=== PATIENT | male | born 1965 | race Caucasian/White ===

== ENCOUNTER → 2020-06-27 | Outpatient (CLI) | payer BC ==
--- NOTE | 2020-07-02 09:47 | P.ARTDOP ---
Arterial Doppler LOWER EXTREMITY ARTERIAL DOPPLER: DATE OF SERVICE: 06/27/2020 Reason for study: Left foot ulcer. Doppler waveforms: Multiphasic throughout on the right except flat line at the digits. Multiphasic at the left femoral, atypical at the popliteal and posterior tibial and monophasic at the dorsalis pedis with flat line digital. Pulse volume recording: []. Pressure gradients: Above the low thigh on the left and across the knee on the left. None noted on the right.. Ankle-brachial indices: Greater than 1 on the right and 0.53 on the left. Toe brachial indices: [] on the right, [] on the left Impression: Suggests normal on the right side and at least moderate left femoral popliteal disease. Doubtful of the flat line waveforms at the toe level. Would recommend vascular specialty consultation.
== END | disposition home or self-care (01) ==
LOC: RADUSWWP 09:37
PROVIDERS: ATTEND Family Medicine
DX: I73.9 Peripheral vascular disease, unspecified (principal)
CPT/HCPCS: 93923

== ENCOUNTER → 2020-07-30 | Day surgery (SDC) | payer BC ==
[2020-07-25 11:03] VITALS: BMI 25.0
[~2020-07-30] MED LIST: ALPRAZolam 0.25 MG TAB PO ONE; ALPRAZolam 0.25 MG TAB PO PRN; ASPIRIN 325 MG TAB PO PRN; IOPAMIDOL-250 100ML BTL INTRAARTER ONE; LIDOCAINE 1% INJ 10MG/ML (20 ML MDV) ONE; LIDOCAINE 1% INJ 10MG/ML (20 ML MDV) SQ ONE; MIDAZOLAM 2 MG/2 ML VIAL IV ONE; SODIUM CHLORIDE 0.9% 1,000 ML IV ONE; SODIUM CHLORIDE 0.9% 1,000 ML IV SCH; SODIUM CHLORIDE 0.9% 1,000 ML in EMPTY BAG 1 BAG IV ONE
[2020-07-30 07:24] VITALS: TEMP 97.6
[2020-07-30 09:07] VITALS: RESP 18
--- NOTE | 2020-07-30 09:12 | IR ---
Fluoroscopy HISTORY: Pain in left foot 1.3 minutes fluoroscopy time supplied to the referring clinician. 93 intraoperative C-arm images doc ument the procedure. See dictated report from cardiology.
--- NOTE | 2020-07-30 09:14 | LTR ---
July 30, 2020 Re: Jose Martin Ch Dear Dr. Bhardwaj: Mr. Jose Martin Ch underwent today an abdominal aortogram and bilateral lower extremities runoff and that revealed occluded left popliteal. He will be scheduled to undergo a ORGANIC PREPARATION ANALYST of the left popliteal. I want to thank you for allowing me to participate in his care and please do not hesitate to call if you have any question or concern. Sincerely, MD BLANCA Modi / LIV: [id number] /
--- NOTE | 2020-07-30 09:59 | AN ---
ANGIOGRAPHY REPORT DATE OF SERVICE: July 30, 2020 PERFORMING PHYSICIAN: Ephraim Peter MD PROCEDURE PERFORMED: 1. An abdominal aortogram. 2. Bilateral lower extremities runoff. INDICATION: This is a 55-year-old gentleman with history of smoking who was struggling with resting pain involving the left foot and also nonhealing ulcer as well. He was diagnosed with critical limb ischemia. An JOÃO was performed and that came into be abnormal. Because of that, an aortogram was advised. APPROACH: Right common femoral artery. COMPLICATION: None. LEVEL OF SEDATION: Moderate with a sedation length of 20 minutes. PROCEDURE DESCRIPTION: After obtaining an informed consent, the patient was brought to the cardiac public works laborer. The right common femoral artery was cannulated using micropuncture technique, the micropuncture wire passed easily then I placed a 5-Uruguayan sheath at the right common femoral artery. After that I did an abdominal aortogram and bilateral lower extremities runoff using 5- Uruguayan pigtail catheter which was initially placed at the level of the renal arteries then it was pulled into above the bifurcation of the aorta to right and left common iliac arteries. The procedure was completed without any complication. SELECTIVE PERIPHERAL ANGIOGRAM: 1. The aorta appeared to be angiographically normal. 2. Common Iliac Arteries: Both are angiographically normal. 3. Internal Iliac Arteries: Both are patent. 4. External Iliac Arteries: Both are angiographically normal. 5. Common Femoral Arteries: The right common femoral artery is angiographically normal and the left common femoral artery appeared to be hazy. 6. Profunda: Both are patent. 7. SFA: The right SFA appeared to be angiographically normal. The distal left SFA appeared to be occluded. 8. Popliteal: The right popliteal is normal and the left popliteal is occluded. 9. Below the knee: There are 3-vessels runoff below the knee bilaterally. CONCLUSION: Occluded left popliteal. POSTPROCEDURE MANAGEMENT: CRYPTOLOGIC LINGUIST of the left popliteal to be performed in antegrade or retrograde technique. MMODL / IJN: [id number] /
[2020-07-30 13:20] VITALS: BP 116/66; PULSE 80
== END ==
LOC: CATHCVL 06:29
PROVIDERS: ATTEND Internal Medicine Interventional Cardiology
DX: I70.245 Atherosclerosis of native arteries of left leg with ulceration of other part of foot (principal); L97.529 Non-pressure chronic ulcer of other part of left foot with unspecified severity; E78.5 Hyperlipidemia, unspecified; I10 Essential (primary) hypertension; F17.210 Nicotine dependence, cigarettes, uncomplicated; Z82.49 Family history of ischemic heart disease and other diseases of the circulatory system; Z79.82 Long term (current) use of aspirin; Z79.899 Other long term (current) drug therapy
CPT/HCPCS: 36200; 75625; 75716; C1769 ×4; C1894; J2250; J2001; Q9966

== ENCOUNTER 2020-08-13 07:58 | Day surgery (SDC) | payer BC ==
[2020-08-11 13:42] VITALS: BMI 25.0
[~2020-08-13 07:58] MED LIST changes: -ALPRAZolam 0.25 MG TAB PO ONE; -IOPAMIDOL-250 100ML BTL INTRAARTER ONE; -LIDOCAINE 1% INJ 10MG/ML (20 ML MDV) ONE; -LIDOCAINE 1% INJ 10MG/ML (20 ML MDV) SQ ONE; -MIDAZOLAM 2 MG/2 ML VIAL IV ONE; -SODIUM CHLORIDE 0.9% 1,000 ML IV ONE; -SODIUM CHLORIDE 0.9% 1,000 ML IV SCH
[2020-08-13] MEDS ORDERED: SODIUM CHLORIDE 0.9% 1,000 ML IV ONE (08:19)
[2020-08-13] MEDS ORDERED: SODIUM CHLORIDE 0.9% 500 ML 500 ML with niCARdipine 6.25 MG, NITROGLYCERIN-D5W PMX 0.05... IV ONE ×4 (10:56)
[2020-08-13] MEDS ORDERED: LIDOCAINE 1% INJ 10MG/ML (20 ML MDV) SQ ONE (11:34)
[2020-08-13] MEDS ORDERED: MIDAZOLAM 2 MG/2 ML VIAL IV ONE ×2 (11:34→12:21)
[2020-08-13] MEDS: fentaNYL (PF) 50 MCG/ML 2 ML AMP IV ONE ×2 (11:34→11:51)
[2020-08-13] MEDS: MIDAZOLAM 2 MG/2 ML VIAL IV ONE ×2 (11:49→11:51)
[2020-08-13] MEDS ORDERED: HYDROmorphone 0.5 MG/0.5 ML SYRINGE IVP ONE (12:05)
[2020-08-13] MEDS ORDERED: CLOPIDOGREL 75 MG TAB PO ONE (12:50)
[2020-08-13] MEDS ORDERED: IOPAMIDOL-250 100ML BTL INTRAARTER ONE (12:50)
[2020-08-13] MEDS ORDERED: SODIUM CHLORIDE 0.9% 1,000 ML in EMPTY BAG 1 BAG IV SCH (13:00)
--- NOTE | 2020-08-13 13:54 | IR ---
EXAMINATION TYPE: IR stent intravas non coronary DATE OF EXAM: 08/13/2020 COMPARISON: NONE HISTORY: Fluoroscopy time. Fluoroscopy was provided to the referring clinician.
--- NOTE | 2020-08-13 14:19 | LTR ---
August 13, 2020 Re: JoseM artin Ch Dear Dr. Bhardwaj: Mr. Jose Martin Ch underwent today successful crossing chronic total occlusion of the left popliteal and left femoral artery along with successful atherectomy and stenting with excellent angiographic results and without any complication. He is going to stay overnight to be discharged tomorrow morning. I want to thank you for allowing me to participate in his care and please do not hesitate to call if you have any question or concerns. Sincerely, Ephraim Peter MD MMTAJ / ELIASN: [id number] /
[2020-08-13] MEDS ORDERED: ACETAMINOPHEN TAB 325 MG TAB ONE (14:24)
[2020-08-13] MEDS ORDERED: ACETAMINOPHEN TAB 325 MG TAB PO PRN (14:26)
[2020-08-13] MEDS ORDERED: HYDROmorphone 0.5 MG/0.5 ML SYRINGE IVP PRN (14:27)
--- NOTE | 2020-08-13 14:38 | AN ---
ANGIOGRAPHY REPORT PERCUTANEOUS PERIPHERAL INTERVENTION: DATE OF SERVICE: August 13, 2020 PERFORMING PHYSICIAN: Ephraim Peter MD. PROCEDURE PERFORMED: 1. Atherectomy of the left popliteal and left SFA using the HawkOne device with extraction of significant amount of plaque. 2. Successful stenting of the left popliteal and left SFA using 6.0 x 100 and 7.0 x 100 Zilver PTX drug-coated stent with excellent angiographic results. 3. Intravascular ultrasound (IVUS) of the left popliteal and left SFA. 4. Balloon angioplasty of the left popliteal and left SFA. 5. Selective left posterior tibial angiogram. INDICATION: Left lower extremities intermittent claudication in this 55-year-old gentleman with history of smoking who underwent an angiogram and that revealed occluded left SFA and left popliteal. APPROACH: Left posterior tibial artery. COMPLICATION: None. LEVEL OF SEDATION: Moderate with sedation length of 75 minutes. PROCEDURE DESCRIPTION: After obtaining an informed consent, the patient was brought to the cardiac picket labor union. The left posterior tibial artery was cannulated using micropuncture technique under ultrasound guidance, the micropuncture wire passed easily then I placed a slender 5/6 sheath at the left posterior tibial artery. Cocktail infusion using heparin and verapamil and nitroglycerin was initiated subsequently. Then, the patient was given a total of 6000 units of heparin IV. After that I did selective left posterior tibial artery angiogram. After that I crossed the chronic total occlusion of the left popliteal and left SFA using 0.018 gold tip glidewire with the backup support of 0.018 CXI catheter. I did inject contrast through the catheter to prove that I was in the true lumen. After that I did atherectomy of the left popliteal and left SFA using the HawkOne device with extraction of significant amount of plaque. After that balloon angioplasty initially done using 5 mm Chocolate balloon and then 6 mm regular balloon. The following angiogram showed inadequate angiographic results mainly in the proximal and distal gap, that was confirmed by intravascular ultrasound, IVUS. I decided to place 2 stents. In the left popliteal, I placed a 6 x 100 and in the left SFA I placed 7 x 100. Both stents were post-dilated using 6 mm balloon with the following angiogram showing excellent angiographic results and the procedure was completed without any complication. After that, the sheath from the left posterior tibial artery was pulled out and manual pressure was held for 10 minutes before we placed TR band. The procedure was completed without any complication. POSTPROCEDURE MANAGEMENT: 1. Dual anti-platelet therapy. 2. Risk factor modifications. 3. Follow up with the patient. BLANCA / LIV: [id number] /
[2020-08-14 07:03] LABS: Basophils # (A) 0.1 k/uL (0-0.2); Basophils % (A) 1 %; Eosinophils # (A) 0.4 k/uL (0-0.7); Eosinophils % (A) 4 %; HCT 45.1 % (39.0-53.0); HGB 15.5 gm/dL (13.0-17.5); Lymphocytes # (A) 1.5 k/uL (1.0-4.8); Lymphocytes % (A) 15 %; MCH 33.4 pg (25.0-35.0); MCHC 34.4 g/dL (31.0-37.0); MCV 97.3 fL (80.0-100.0); Mean Platelet Volume 7.4; Monocytes # (A) 0.7 k/uL (0-1.0); Monocytes % (A) 7 %; Neutrophils # (A) 7.2 k/uL (1.3-7.7); Neutrophils % (A) 72 %; Platelet Count 270 k/uL (150-450); RBC 4.64 m/uL (4.30-5.90); RDW 12.9 % (11.5-15.5); WBC 9.9 k/uL (3.8-10.6)
[2020-08-14 07:16] LABS: African American GFR (CKD) >90 (>60 ml/min/1.73 sqM); Anion Gap 4 mmol/L; Blood Urea Nitrogen 12 mg/dL (9-20); Calcium 9.6 mg/dL (8.4-10.2); Carbon Dioxide 28 mmol/L (22-30); Chloride 106 mmol/L (98-107); Glucose 93 mg/dL (74-99); Non-African American GFR(CKD) >90 (>60 ml/min/1.73 sqM); Potassium 4.5 mmol/L (3.5-5.1); Sodium 138 mmol/L (137-145)
[2020-08-14 08:23] VITALS: BP 120/73; PULSE 18; RESP 18; TEMP 97.9
[2020-08-14] MEDS ORDERED: ASPIRIN 81 MG PO SCH (09:00)
[2020-08-14] MEDS ORDERED: MULTIVITAMINS, THERA 1 EACH TAB PO SCH (09:00)
[2020-08-14] MEDS ORDERED: ATORVASTATIN 80 MG TAB PO SCH (09:00)
[2020-08-14] MEDS ORDERED: CLOPIDOGREL 75 MG TAB PO SCH (09:00)
[2020-08-14] MEDS ORDERED: lisinopriL 5 MG TAB PO SCH (09:00)
--- NOTE | 2020-08-14 10:36 | DS ---
DISCHARGE SUMMARY ADMISSION DATE: August 13, 2020. DISCHARGE DATE: August 14, 2020. BRIEF HISTORY: This is a 55-year-old gentleman who was experiencing recently symptoms of left leg discomfort concerning for intermittent claudication. He underwent an angiogram and that revealed occluded left popliteal. He underwent yesterday successful recanalizing, chronically occluded left popliteal with good angiographic results. He is going to be discharged home on dual anti-platelet therapy as well as statin and I will follow up with the patient next week in the office. MMMATTHIASL / IJN: [id number] /
== END 2020-08-14 11:07 | disposition home or self-care (01) ==
LOC: CATHCVL 07:58 → 6NMEDSUR 12:48 → CATHCVL 08-14 11:07
PROVIDERS: ATTEND Internal Medicine Interventional Cardiology
DX: I70.212 Atherosclerosis of native arteries of extremities with intermittent claudication, left leg (principal); I10 Essential (primary) hypertension; E78.5 Hyperlipidemia, unspecified; F17.210 Nicotine dependence, cigarettes, uncomplicated; Z79.899 Other long term (current) drug therapy; Z82.49 Family history of ischemic heart disease and other diseases of the circulatory system
CPT/HCPCS: 37227; 85347; 37252; 80048; 85025; C1894; C1769 ×4; C1725 ×3; C1714; C1753; C1874 ×2; J2250; J1644 ×2; J2001; J3010; J1170; Q9966

== ENCOUNTER 2021-07-31 06:11 | Inpatient (IN) | payer BC ==
[~2021-07-31 06:11] MED LIST changes: -ASPIRIN 325 MG TAB PO PRN
[2021-07-31] MEDS ORDERED: HYDROmorphone 1 MG/ML 1 ML SYRINGE IVP STA ×2 (06:26→06:35)
[2021-07-31 06:58] LABS: African American GFR (CKD) >90 (>60 ml/min/1.73 sqM); Anion Gap 10 mmol/L; Blood Urea Nitrogen 17 mg/dL (9-20); Calcium 9.4 mg/dL (8.4-10.2); Carbon Dioxide 25 mmol/L (22-30); Chloride 102 mmol/L (98-107); Glucose 100 mg/dL (74-99); Non-African American GFR(CKD) >90 (>60 ml/min/1.73 sqM); Potassium 4.8 mmol/L (3.5-5.1); Sodium 137 mmol/L (137-145)
[2021-07-31] MEDS ORDERED: ASPIRIN 325 MG TAB PO PRN (07:00)
[2021-07-31 07:15] LABS: Basophils # (A) 0.1 k/uL (0-0.2); Basophils % (A) 1 %; Eosinophils # (A) 0.2 k/uL (0-0.7); Eosinophils % (A) 2 %; HGB 17.3 gm/dL (13.0-17.5); Lymphocytes # (A) 1.5 k/uL (1.0-4.8); Lymphocytes % (A) 14 %; MCH 33.2 pg (25.0-35.0); MCHC 33.3 g/dL (31.0-37.0); MCV 99.6 fL (80.0-100.0); Mean Platelet Volume 7.5; Monocytes # (A) 0.9 k/uL (0-1.0); Monocytes % (A) 8 %; Neutrophils # (A) 8.1 k/uL (1.3-7.7); Neutrophils % (A) 74 %; Platelet Count 323 k/uL (150-450); RBC 5.22 m/uL (4.30-5.90); RDW 13.5 % (11.5-15.5)
[2021-07-31] MEDS ORDERED: LIDOCAINE 1% INJ 10MG/ML (20 ML MDV) ONE (07:15)
[2021-07-31] MEDS ORDERED: MIDAZOLAM 2 MG/2 ML VIAL IV ONE (07:40)
[2021-07-31] MEDS ORDERED: LIDOCAINE 1% INJ 10MG/ML (20 ML MDV) SQ ONE (07:42)
[2021-07-31] MEDS ORDERED: fentaNYL (PF) 50 MCG/ML 2 ML AMP ONE (07:47)
[2021-07-31] MEDS ORDERED: fentaNYL (PF) 50 MCG/ML 2 ML AMP IV ONE (07:51)
[2021-07-31] MEDS ORDERED: HEPARIN SODIUM 1,000 UN/ML (10ML VL) ONE (07:52)
[2021-07-31] MEDS: HYDROmorphone 2 MG/ML 1 ML SYRINGE IV ONE ×2 (08:04→08:15)
[2021-07-31] MEDS ORDERED: ALTEPLASE 10 MG in SODIUM CHLORIDE 0.9% 90 ML IA ONE (08:15)
[2021-07-31] MEDS: MIDAZOLAM 2 MG/2 ML VIAL IV ONE ×2 (08:16→08:22)
[2021-07-31] MEDS ORDERED: ALTEPLASE 2 MG VIAL (CATHFLO) IA STA (08:19)
[2021-07-31] MEDS ORDERED: IOPAMIDOL-250 100ML BTL INTRAARTER ONE (08:38)
[2021-07-31] MEDS ORDERED: NALOXONE 0.4 MG/ML 1 ML VIAL IVP PRN (08:38)
[2021-07-31] MEDS: HEPARIN SOD,PORK IN 0.45% NACL 25,000 UNIT in 0.45% NACL 1 250ML.BAG IV SCH (08:39)
[2021-07-31] MEDS ORDERED: SODIUM CHLORIDE 0.9% 1,000 ML in EMPTY BAG 1 BAG IV SCH (08:45)
[2021-07-31] MEDS ORDERED: ASPIRIN 81 MG PO PRN (09:43)
--- NOTE | 2021-07-31 09:49 | IR ---
Fluoroscopy HISTORY: Peripheral vascular occlusive disease 11.1 minutes fluoroscopy time supplied to the referring clinician. 310 intraoperative C-arm images d ocument the procedure. See dictated report from cardiology.
[2021-07-31] MEDS: MORPHINE SULFATE 2 MG/ML SYRINGE IVP PRN ×2 (13:41→18:22)
[2021-07-31] MEDS: MULTIVITAMINS, THERA 1 EACH TAB PO SCH (14:22)
[2021-07-31] MEDS: ALTEPLASE 10 MG in SODIUM CHLORIDE 0.9% 90 ML IA SCH (15:54)
[2021-07-31] MEDS ORDERED: ALTEPLASE 10 MG in SODIUM CHLORIDE 0.9% 90 ML IV SCH (16:00)
--- NOTE | 2021-07-31 17:54 | P.PCN ---
Date of Procedure: 07/31/21 Operative Findings: LEFT LOWER EXTREMITY ANGIOGRAM PERFORMING PHYSICIAN: Ephraim Peter MD PROCEDURE PERFORMED: 1. Left lower extremity angiogram 2. Intravascular ultrasound of the left popliteal and left SFA and left common femoral artery 3. Placement of infusion catheter in the left popliteal and left SFA 4. Ultrasound-guided access of the right common femoral artery INDICATION: Acute ischemia in this 56-year-old gentleman who was experiencing resting pain. He underwent in the past successful stenting of the left popliteal and left SFA. COMPLICATION: Mom LEVEL OF SEDATION: Moderate was sedation length of moderate with sedation length of 14 minutes APPROACH: Right common femoral artery PROCEDURE DESCRIPTION: After obtaining informed consent and explaining the procedure benefits, risks, and complications, the patient was brought to the cardiac dentures lab technician. The right groin was prepped and draped in sterile fashion. The right common femoral artery was cannulated using micropuncture technique, under ultrasound guidance. A micropuncture wire was advanced, and the micropuncture sheath was advanced over the wire, then the micropuncture sheath was exchanged over an 0.35 wire into a 5-Wallisian sheath dilator assembly then the wire and dilator were removed and sheath was flushed. Subsequently I did selective left SFA using 035 stiff Glidewire with a backup support of 5-Wallisian rim catheter. After that I did exchange my 11 cm 6-Wallisian sheath into 70 cm 6-Wallisian sheath. After that left lower oximetry angiogram was performed. Subsequently I placed an infusion catheter in the left popliteal and left SFA after intravascular ultrasound was performed. LEFT LOWER EXTREMITY ANGIOGRAM: The left common femoral artery appears to have an eccentric calcified plaque angiographically appeared to be in the range of 50%. By intravascular ultrasound the lesion was hemodynamically significant. The left profunda appears to be patent The left SFA appeared to be patent in the proximal and midportion but distally is a stented and the stent is occluded The left popliteal is occluded and the occlusion extends all the way to below the knee There are 3 vessels run off below the knee on the left side INTRAVASCULAR ULTRASOUND AND PLACEMENT OF INFUSION CATHETER IN THE LEFT LEG: The intravascular ultrasound revealed what it seems to be possible fresh thrombus involving the left popliteal and left SFA. Also that revealed eccentric calcified plaque involving the proximal left common femoral artery right from the left external iliac artery. In the light of that I was able to cross the occlusion using 014 wire and subsequently I did advanced an infusion catheter over the wire to the left popliteal below the knee. Subsequently the catheter was connected into TPA and the patient will be treated with TPA overnight to be coming tomorrow for second look. CONCLUSION: 1. Acute ischemia of the left leg in this 56-year-old gentleman who was experiencing resting pain and he is known to have angioplasty of the left popliteal and left SFA. The pain was started 2-3 weeks ago 2. The angiogram revealed thrombotic occlusion which seems to be in-stent occlusion of the left popliteal and left SFA 3. Eccentric calcified lesion involving the proximal left common femoral artery POSTPROCEDURE MANAGEMENT: 1. The patient will be admitted with TPA overnight 2. Second look angiogram in the next 24 hours
[2021-07-31] MEDS: ATORVASTATIN 80 MG TAB PO SCH (20:48)
[2021-07-31] MEDS: HYDROmorphone 1 MG/ML 1 ML SYRINGE IVP PRN (22:11)
[2021-07-31 22:27] LABS: Basophils % (A) 0 %; Eosinophils # (A) 0.1 k/uL (0-0.7); Eosinophils % (A) 1 %; HCT 47.1 % (39.0-53.0); HGB 15.9 gm/dL (13.0-17.5); Lymphocytes % (A) 7 %; MCH 33.9 pg (25.0-35.0); MCHC 33.7 g/dL (31.0-37.0); MCV 100.4 fL (80.0-100.0); Mean Platelet Volume 7.7; Monocytes # (A) 0.8 k/uL (0-1.0); Monocytes % (A) 6 %; Neutrophils # (A) 12.5 k/uL (1.3-7.7); Neutrophils % (A) 86 %; Platelet Count 240 k/uL (150-450); RBC 4.69 m/uL (4.30-5.90); RDW 13.6 % (11.5-15.5); WBC 14.5 k/uL (3.8-10.6)
[2021-07-31 22:36] LABS: INR 1.1 (<1.2)
[2021-08-01] MEDS: ALTEPLASE 10 MG in SODIUM CHLORIDE 0.9% 90 ML IA SCH (00:45)
[2021-08-01] MEDS: HYDROmorphone 1 MG/ML 1 ML SYRINGE IVP PRN ×7 (01:35→23:51)
[2021-08-01 02:53] LABS: Basophils % (A) 0 %; Eosinophils # (A) 0.1 k/uL (0-0.7); Eosinophils % (A) 1 %; HCT 46.7 % (39.0-53.0); HGB 15.3 gm/dL (13.0-17.5); Lymphocytes # (A) 1.2 k/uL (1.0-4.8); Lymphocytes % (A) 10 %; MCH 33.3 pg (25.0-35.0); MCHC 32.8 g/dL (31.0-37.0); MCV 101.5 fL (80.0-100.0); Macrocytosis Slight; Mean Platelet Volume 7.6; Monocytes # (A) 0.8 k/uL (0-1.0); Monocytes % (A) 7 %; Neutrophils % (A) 81 %; Platelet Count 262 k/uL (150-450); RDW 13.7 % (11.5-15.5); WBC 12.3 k/uL (3.8-10.6)
[2021-08-01 02:55] LABS: Partial Thromboplastin Time 28.9 sec (22.0-30.0)
[2021-08-01 02:57] LABS: African American GFR (CKD) >90 (>60 ml/min/1.73 sqM); Blood Urea Nitrogen 15 mg/dL (9-20); Calcium 8.8 mg/dL (8.4-10.2); Carbon Dioxide 26 mmol/L (22-30); Glucose 112 mg/dL (74-99); Non-African American GFR(CKD) >90 (>60 ml/min/1.73 sqM)
[2021-08-01 03:19] LABS: Anion Gap 6 mmol/L; Chloride 103 mmol/L (98-107); Potassium 4.4 mmol/L (3.5-5.1); Sodium 135 mmol/L (137-145)
[2021-08-01] MEDS: MULTIVITAMINS, THERA 1 EACH TAB PO SCH (08:54)
[2021-08-01 09:01] LABS: Partial Thromboplastin Time 27.5 sec (22.0-30.0)
[2021-08-01] MEDS ORDERED: LIDOCAINE 1% INJ 10MG/ML (20 ML MDV) ONE (09:48)
[2021-08-01] MEDS ORDERED: IV FLUID CONTINUATION 1,000 ML IV ONE (10:00)
[2021-08-01] MEDS ORDERED: LIDOCAINE 1% INJ 10MG/ML (20 ML MDV) SQ ONE (10:15)
[2021-08-01] MEDS: CLOPIDOGREL 75 MG TAB PO SCH (10:15)
[2021-08-01] MEDS ORDERED: fentaNYL (PF) 50 MCG/ML 2 ML AMP ONE (10:19)
[2021-08-01] MEDS ORDERED: fentaNYL (PF) 50 MCG/ML 2 ML AMP IV ONE (10:20)
[2021-08-01] MEDS ORDERED: MIDAZOLAM 2 MG/2 ML VIAL IV ONE (10:20)
[2021-08-01] MEDS ORDERED: ALTEPLASE 10 MG in SODIUM CHLORIDE 0.9% 90 ML IV ONE (10:30)
[2021-08-01] MEDS ORDERED: NALOXONE 0.4 MG/ML 1 ML VIAL IVP PRN (10:40)
[2021-08-01] MEDS ORDERED: SODIUM CHLORIDE 0.9% 1,000 ML in EMPTY BAG 1 BAG IV SCH (10:45)
[2021-08-01] MEDS ORDERED: IOPAMIDOL-250 50ML BTL INTRAARTER ONE (10:52)
--- NOTE | 2021-08-01 10:56 | P.PCN ---
Date of Procedure: 08/01/21 Operative Findings: LEFT LOWER EXTREMITY ANGIOGRAM (SECOND LOOK AFTER TPA INFUSION) PERFORMING PHYSICIAN: Ephraim Peter MD PROCEDURE PERFORMED: 1. Left lower extremity angiogram 2. Placement of ultrasonic catheter (EKO) in the left popliteal and left SFA 3. Placement of infusion catheter in the left popliteal and left SFA INDICATION: Acute ischemia in this 56-year-old gentleman who was experiencing resting pain. He underwent in the past successful stenting of the left popliteal and left SFA. Yesterday he underwent left lower extremity angiogram and that revealed occluded left popliteal and occluded left SFA, in-stent occlusion, an infusion catheter was placed and the patient was infused with TPA overnight. He was brought today for second look/recheck COMPLICATION: Mom LEVEL OF SEDATION: Moderate was sedation length of moderate with sedation length of 20 minutes APPROACH: Right common femoral artery PROCEDURE DESCRIPTION: After obtaining an informed consent the patient was brought to the cardiac director of cath lab. I did remove the infusion catheter over 035 stiff wire which was super core wire. The wire was left in place. Subsequently I did left lower oximetry angiogram with injection through the sheath. After that I did place ultrasonic catheter in the left popliteal and left SFA. The procedure was completed without any complications LEFT LOWER EXTREMITY ANGIOGRAM: The left SFA thrombus has almost resolved. The left popliteal thrombus also most the results with a spot at the distal edge of the stent quite concerning. Below the knee there are 2 vessels with posterior tibial and peroneal. The proximal portion of the 80 continues to be occluded but now we can see the ostial office. The plan is to place and ultrasonic catheter to get rid of the thrombus completely and hopefully opened the anterior tibial artery or dual balloon angioplasty. Because we lost the anterior tibial artery I decided to place an infusion catheter and ultrasonic catheter and monitor the patient for additional 24 hours hopefully the AT with open and residual thrombus in the left popliteal resolve as well. PLACEMENT OF ULTRASONIC CATHETER AND INFUSION CATHETER IN THE LEFT SFA AND LEFT POPLITEAL I advanced the infusion catheter over [address] to the popliteal below the knee. That was performed under fluoroscopy guidance Subsequently the ultrasonic catheter was advanced inside the infusion catheter under fluoroscopy guidance. The patient is going to be draped with TPA overnight for third look tomorrow morning. CONCLUSION: 1. Acute limb ischemia in this 56-year-old gentleman who underwent previously stenting of the left popliteal and left SFA. 2. Acute total occlusion of the left popliteal and left SFA which is in-stent occlusion 3. Residual thrombus was identified mostly in the left popliteal and also the anterior tibial artery continues to be occluded in spite of infusion was TPA for 24 hours 4. Successful placement of infusion catheter and ultrasonic catheter in the left SFA and left popliteal POSTPROCEDURE MANAGEMENT: 1. Continue monitoring the patient for additional 24 hours 2. Second look angiogram in the next 24 hours
[2021-08-01] MEDS: SODIUM CHLORIDE 0.9% 1,000 ML IV SCH (11:07)
[2021-08-01] MEDS: HEPARIN SOD,PORK IN 0.45% NACL 25,000 UNIT in 0.45% NACL 1 250ML.BAG IV SCH ×2 (11:07→11:49)
[2021-08-01 11:41] VITALS: BMI 24.7
[2021-08-01 14:27] LABS: Partial Thromboplastin Time 26.8 sec (22.0-30.0)
[2021-08-01] MEDS: MORPHINE SULFATE 2 MG/ML SYRINGE IVP PRN (18:49)
[2021-08-01] MEDS: ATORVASTATIN 80 MG TAB PO SCH (20:40)
[2021-08-02 02:18] LABS: Partial Thromboplastin Time 27.7 sec (22.0-30.0)
[2021-08-02] MEDS: HYDROmorphone 1 MG/ML 1 ML SYRINGE IVP PRN ×6 (03:20→23:46)
[2021-08-02] MEDS: SODIUM CHLORIDE 0.9% 1,000 ML IV SCH (06:33)
[2021-08-02] MEDS ORDERED: IV FLUID CONTINUATION 1,000 ML IV ONE (07:45)
[2021-08-02 07:56] LABS: Basophils % (A) 0 %; Eosinophils # (A) 0.2 k/uL (0-0.7); Eosinophils % (A) 2 %; HCT 32.9 % (39.0-53.0); Lymphocytes # (A) 1.5 k/uL (1.0-4.8); Lymphocytes % (A) 12 %; MCH 33.5 pg (25.0-35.0); MCHC 33.5 g/dL (31.0-37.0); Mean Platelet Volume 8.4; Monocytes # (A) 0.9 k/uL (0-1.0); Monocytes % (A) 8 %; Neutrophils # (A) 9.3 k/uL (1.3-7.7); Neutrophils % (A) 77 %; Platelet Count 237 k/uL (150-450); RBC 3.29 m/uL (4.30-5.90); RDW 12.7 % (11.5-15.5)
[2021-08-02] MEDS ORDERED: LIDOCAINE 1% INJ 10MG/ML (20 ML MDV) ONE (07:56)
[2021-08-02] MEDS ORDERED: HEPARIN SODIUM,PORCINE 30 ML 30 ML ONE (07:56)
[2021-08-02] MEDS: MULTIVITAMINS, THERA 1 EACH TAB PO SCH (08:10)
[2021-08-02 08:12] LABS: African American GFR (CKD) >90 (>60 ml/min/1.73 sqM); Anion Gap 4 mmol/L; Blood Urea Nitrogen 25 mg/dL (9-20); Calcium 8.2 mg/dL (8.4-10.2); Carbon Dioxide 27 mmol/L (22-30); Chloride 105 mmol/L (98-107); Glucose 89 mg/dL (74-99); Non-African American GFR(CKD) >90 (>60 ml/min/1.73 sqM); Potassium 3.9 mmol/L (3.5-5.1); Sodium 136 mmol/L (137-145)
[2021-08-02] MEDS ORDERED: MIDAZOLAM 2 MG/2 ML VIAL IV ONE ×2 (08:20)
[2021-08-02] MEDS ORDERED: LIDOCAINE 1% INJ 10MG/ML (20 ML MDV) SQ ONE (08:20)
[2021-08-02] MEDS ORDERED: SODIUM CHLORIDE 0.9% 500 ML 500 ML with niCARdipine 6.25 MG, NITROGLYCERIN-D5W PMX 0.05... IV ONE ×4 (08:59)
[2021-08-02] MEDS ORDERED: HYDROmorphone 1 MG/ML 1 ML SYRINGE IVP ONE (09:27)
[2021-08-02] MEDS ORDERED: niCARdipine 25 MG/10 ML VIAL ONE (09:28)
[2021-08-02] MEDS ORDERED: niCARdipine Syringe (1,000 mcg/10 mL) INTRACORON ONE (09:34)
[2021-08-02] MEDS ORDERED: NITROGLYCERIN 1000MCG/10ML SYRINGE INTRACORON ONE (09:35)
[2021-08-02] MEDS ORDERED: IOPAMIDOL-250 100ML BTL INTRAARTER ONE (09:37)
[2021-08-02] MEDS ORDERED: CLOPIDOGREL 75 MG TAB ONE (10:03)
[2021-08-02] MEDS ORDERED: NALOXONE 0.4 MG/ML 1 ML VIAL IVP PRN (10:03)
[2021-08-02] MEDS ORDERED: CLOPIDOGREL 75 MG TAB PO ONE (10:06)
--- NOTE | 2021-08-02 10:17 | P.PCN ---
Date of Procedure: 08/02/21 Operative Findings: PERCUTANEOUS PERIPHERAL INTERVENTION Performing physician Ephraim Peter M.D. Procedure performed #1 Removal of ultrasonic catheter and infusion catheter from the left popliteal and left SFA #2 Successful balloon angioplasty of the left anterior tibial artery #3 Successful balloon angioplasty of the left popliteal #4 Left lower extremity angiogram (third look) #5 Right common femoral artery angiogram #6 Ultrasound-guided access of the left anterior tibial artery Indication This is a 56-year-old gentleman who was diagnosed with acute limb ischemia of the left foot. He underwent an angiogram initially and that revealed occluded left popliteal an occluded left SFA an occluded left anterior tibial artery. The occlusion in the left popliteal and left SFA was in-stent occlusion. An infusion catheter was placed and the patient was brought yesterday for second look and that revealed residual thrombus involving the left popliteal and left SFA and for that reason I placed ultrasonic catheter and an infusion catheter. The patient was brought today for third look. Approach Right common femoral artery and left anterior tibial artery Complications None Level of sedation Moderate with a sedation time of 92 minutes Procedure description After obtaining an informed consent the patient was brought to the cardiac tree tapping laborer. Initially a blood work was obtained. After that the ultrasonic catheter was removed. Then I placed an 035 catheter in the infusion catheter then the catheter was removed under fluoroscopy guidance and the wire was placed in place. Left lower eccentric angiogram was performed with injection through the sheath and that revealed posterior tibial and peroneal artery with occluded anterior tibial artery. The residual thrombus in the left popliteal stent seems to be exactly the same. At that point I decided to attempt opening the anterior tibial artery on the left side. Attempting wiring PAT in antegrade technique was unsuccessful. At that point I decided to axis the left anterior tibial artery above the foot. That was performed under fluoroscopy guidance and a slender 5/6 sheath was placed. Subsequently I was able to wire the 80 in retrograde approach and advance a wire to the popliteal at the stented segment. The anterior tibial artery initially was ballooned using 2 mm balloon and subsequently 3 mm balloon. After that the popliteal was ballooned using 6 mm balloon. Injection of nicardipine and nitro was performed from above. The following angiogram showed excellent angiographic results. After that I did exchange my 70 cm 7-Scottish sheath into 11 cm 7-Scottish sheath over 035 stiff Glidewire. Selective left common femoral artery angiogram was performed and revealed a good entry and good femoral artery segment. For that reason I deployed this an 8- Scottish Angio-Seal. The procedure was completed without any complication Postprocedure management #1 dual antiplatelet therapy #2 aggressive cholesterol control #3 risk factors modification #4 endarterectomy of the left common femoral artery to be performed as an inpatient
[2021-08-02] MEDS: HEPARIN SOD,PORK IN 0.45% NACL 25,000 UNIT in 0.45% NACL 1 250ML.BAG IV SCH ×2 (10:20→14:08)
[2021-08-02] MEDS: CLOPIDOGREL 75 MG TAB PO SCH (10:20)
[2021-08-02] MEDS: SODIUM CHLORIDE 0.9% 1,000 ML in EMPTY BAG 1 BAG IV SCH (10:34)
[2021-08-02] MEDS: MORPHINE SULFATE 2 MG/ML SYRINGE IVP PRN ×2 (10:36→18:53)
[2021-08-02 12:51] LABS: Basophils % (A) 0 %; Eosinophils # (A) 0.2 k/uL (0-0.7); Eosinophils % (A) 2 %; HCT 28.9 % (39.0-53.0); HGB 9.8 gm/dL (13.0-17.5); Lymphocytes # (A) 1.8 k/uL (1.0-4.8); Lymphocytes % (A) 15 %; MCH 33.8 pg (25.0-35.0); MCV 99.4 fL (80.0-100.0); Monocytes # (A) 0.9 k/uL (0-1.0); Monocytes % (A) 7 %; Neutrophils % (A) 75 %; Platelet Count 228 k/uL (150-450); RBC 2.91 m/uL (4.30-5.90); RDW 12.7 % (11.5-15.5); WBC 12.1 k/uL (3.8-10.6)
--- NOTE | 2021-08-02 12:52 | P.GSCN ---
History of Present Illness Consult date: 08/02/21 History of present illness: Jose Martin is a 56-year-old male with peripheral arterial disease and a history of a left superficial femoral artery and popliteal artery stenting. He also has a history of tobacco abuse and hypertension. He is following up in the office with his cardiology team and was found to have pain and swelling in his left calf with discoloration after going skiing for the weekend. He underwent imaging after this and was found to have thrombosis of his left previous stent. He has had angiogram with TPA infusion and LILIA. Is doing well with improvement of his flow and revascularization however at this time he did notice high-grade left common femoral artery stenosis and requested a vascular surgery consult for surgical interventions. Past Medical History Past Medical History: Deep Vein Thrombosis (DVT), Hypertension, Vascular Disorder Additional Past Medical History / Comment(s): ulcerative wound on left foot, varicose veins, left inguinal hernia, History of Any Multi-Drug Resistant Organisms: None Reported Additional Past Surgical History / Comment(s): Vein stripped left leg, angiogram, stents left calf Past Anesthesia/Blood Transfusion Reactions: No Reported Reaction Past Psychological History: No Psychological Hx Reported Smoking Status: Current some day smoker Past Alcohol Use History: Occasional Additional Past Alcohol Use History / Comment(s): trying to quit-now smokes only occ. Past Drug Use History: None Reported - Past Family History Father Family Medical History: Deep Vein Thrombosis (DVT) Sister(s) Family Medical History: Deep Vein Thrombosis (DVT) Medications and Allergies Home Medications Medication Instructions Recorded Confirmed Type Multivitamins, Thera [Multivitamin 1 tab PO DIRECTED 07/25/20 07/31/21 History (formulary)] Atorvastatin [Lipitor] 80 mg PO HS 08/11/20 07/31/21 History Clopidogrel [Plavix] 75 mg PO DAILY #90 tab 08/14/20 07/31/21 Rx Aspirin 81 mg PO DAILY PRN 07/31/21 07/31/21 History Allergies Allergy/AdvReac Type Severity Reaction Status Date / Time No Known Allergies Allergy Verified 07/31/21 06:26 Surgical - Exam Vital Signs Temp Pulse Resp BP Pulse Ox 99.1 F 97 18 155/87 97 07/31/21 06:51 07/31/21 06:51 07/31/21 06:51 07/31/21 06:51 07/31/21 06:51 Gen. is a pleasant cooperative male in no acute distress. Heart is regular in rate and rhythm. Lungs are clear bilaterally. Abdomen is soft, nontender nondistended. Extremity show no clubbing. His whole radial and femoral pulses bilaterally. Right femoral access site clean and dry. Palpable posterior tibial pulse of the right. No palpable pedal pulses on the left his left second and third digit are slightly cyanotic discoloration changes. He appears motor intact. Normal mood and affect. Cranial nerves II through XII grossly intact Results Imaging from angiography is reviewed - Labs 08/02/21 07:37 08/02/21 07:37 Abnormal Lab Results - Last 24 Hours (Table) 08/02/21 08/02/21 Range/Units 07:37 07:37 WBC 12.0 H (3.8-10.6) k/uL RBC 3.29 L (4.30-5.90) m/uL Hgb 11.0 L D (13.0-17.5) gm/dL Hct 32.9 L (39.0-53.0) % Neutrophils # 9.3 H (1.3-7.7) k/uL Sodium 136 L (137-145) mmol/L BUN 25 H (9-20) mg/dL Calcium 8.2 L (8.4-10.2) mg/dL Diabetes panel 08/02/21 Range/Units 07:37 Sodium 136 L (137-145) mmol/L Potassium 3.9 (3.5-5.1) mmol/L Chloride 105 (98-107) mmol/L Carbon Dioxide 27 (22-30) mmol/L BUN 25 H (9-20) mg/dL Creatinine 0.71 (0.66-1.25) mg/dL Glucose 89 (74-99) mg/dL Calcium 8.2 L (8.4-10.2) mg/dL Calcium panel 08/02/21 Range/Units 07:37 Calcium 8.2 L (8.4-10.2) mg/dL Pituitary panel 08/02/21 Range/Units 07:37 Sodium 136 L (137-145) mmol/L Potassium 3.9 (3.5-5.1) mmol/L Chloride 105 (98-107) mmol/L Carbon Dioxide 27 (22-30) mmol/L BUN 25 H (9-20) mg/dL Creatinine 0.71 (0.66-1.25) mg/dL Glucose 89 (74-99) mg/dL Calcium 8.2 L (8.4-10.2) mg/dL Adrenal panel 08/02/21 Range/Units 07:37 Sodium 136 L (137-145) mmol/L Potassium 3.9 (3.5-5.1) mmol/L Chloride 105 (98-107) mmol/L Carbon Dioxide 27 (22-30) mmol/L BUN 25 H (9-20) mg/dL Creatinine 0.71 (0.66-1.25) mg/dL Glucose 89 (74-99) mg/dL Calcium 8.2 L (8.4-10.2) mg/dL Assessment and Plan Assessment: High-grade left common femoral/external iliac artery stenosis Previous acute limb ischemia, with revascularization and patent stent Critical ischemia with coloration changes to the second and third digits of the left foot Plan: After review and discussion, we'll plan for an open left femoral endarterectomy with patch angioplasty 24-48 hours pending OR availability. Agree with heparin, would hold proxy 6 hours prior to surgical intervention.
[2021-08-02 13:13] LABS: Partial Thromboplastin Time 24.5 sec (22.0-30.0); Prothrombin Time 10.5 sec (9.0-12.0)
[2021-08-02] MEDS ORDERED: NICOTINE GUM (POLACRILEX) 2 MG GUM BUCCAL PRN (16:21)
[2021-08-02] MEDS ORDERED: ONDANSETRON 4 MG/2 ML VIAL IVP PRN (16:22)
[2021-08-02] MEDS ORDERED: MELATONIN 5 MG TABLET PO PRN (16:22)
[2021-08-02] MEDS ORDERED: ACETAMINOPHEN TAB 325 MG TAB PO PRN (16:22)
[2021-08-02] MEDS ORDERED: ALBUTEROL NEBULIZED 2.5 MG/3 ML INHALATION PRN (16:22)
--- NOTE | 2021-08-02 16:23 | P.CONS ---
History of Present Illness - Reason for Consult Consult date: 08/02/21 anemia Requesting physician: Ephraim Peter - Chief Complaint left foot pain - History of Present Illness Patient is a 56 yo male with known peripheral vascular disease status post stenting of the left SFA and popliteal, hypertension, and prior tobacco abuse who initially presented for symptomatic peripheral arterial disease with planned intervention. Patient subsequently underwent lower extremity angiogram on 07/31/21 which showed thrombus in the left popliteal and left SFA due to in stent thrombosis, patient had intravascular ultrasound completed with infusion catheter placed and TPA infused for 24 hours. On 08/01 he continued to have some leg pain and angiogram demonstrated residual thrombus and subsequently he underwent ultrasonic catheter (EKO) placed in the left popliteal and left SFA. On she was again taken to the optical lab technician with removal of the infusion catheter from the left popliteal and left FSA with successful balloon angioplasty of the left anterior tibial artery, successful balloon angioplasty of the left popliteal artery, and a right femoral artery angiogram demonstrating left femoral artery occlusion. He was seen by vascular surgery and paln are for inpatient femoral Endarectomy. Patient seen and examined at bedside. He reports that he did well after initial procedure 1 year ago. He then went skiing in [place] and developed worsening leg pain. Over 2 weeks he went from having mild pain to not being able to walk on his leg and his foot being ischemic. He denies any recent chest pain, shortness of breath, nausea, vomiting, diarrhea, difficulty urinating. He is independent in ADLS. Pertinent positives and negatives as discussed in HPI, a complete review of systems was performed and all other systems are negative. General: non toxic, no distress, appears at stated age Derm: warm, dry Head: atraumatic, normocephalic, symmetric Eyes: EOMI, no lid lag, anicteric sclera, pupils equal round reactive to light ENT: Nose and ears atraumatic, no thrush, no pharyngeal erythema Neck: No thyromegaly, no cervical lymphadenopathy, trachea midline, supple Mouth: no lip lesion, mucus membranes moist Cardiovascular: S1S2 reg, no murmur, positive posterior tibial pulse bilateral, no edema, capillary refill less than 2 seconds Lungs: clear to ascultation bilateral, no ronchi, no rales, no wheeze, no accessory muscle use Abdominal: soft, nontender to palpation, no guarding, no appreciable organomegaly, normal bowel sounds Ext: no gross muscle atrophy, muscle strength muscle strength 5 out of 5 in all 4 extremities, no contractures Neuro: CN II-XI grossly intact, light touch intact all 4 extremities, finger to nose within normal limits, Psych: Alert, oriented, appropriate affect Assessment/Plan: Critical limb ischemia left leg due to hihg-grade left common femoral iliac artery stenosis -s/p balloon arthroplasty and prior stenting - likely femoral endarterectomy in 24-48 hours per vascular surgery - ASA, plavix, statin, MVI - NSQIP score for femoral endarectomy == Serious complications 5.8% == Cardiac 0.1% = 0.0% Acute blood loss anemia - follow CBC - Check iron studies Tobacco abuse -cessation -nicotine replacement Case was discussed with Dr. Peter earlier this morning and will be transferred to our service while he is awaiting surgery. DVT prophylaxis: Heparin gtt Discussed with: patient, Dr. Peter Anticipated discharge: 3-[address]: home A total of 35 minutes was spent on the care of this complex patient more than 50% of the time was spent in counseling and care coordination. Past Medical History Past Medical History: Deep Vein Thrombosis (DVT), Vascular Disorder Additional Past Medical History / Comment(s): ulcerative wound on left foot, varicose veins, left inguinal hernia, DVT after needing a cast History of Any Multi-Drug Resistant Organisms: None Reported Additional Past Surgical History / Comment(s): Vein stripped left leg, angiogram, stents left calf Past Anesthesia/Blood Transfusion Reactions: No Reported Reaction Past Psychological History: No Psychological Hx Reported Smoking Status: Current some day smoker Past Alcohol Use History: Occasional Additional Past Alcohol Use History / Comment(s): trying to quit-now smokes only occ. Past Drug Use History: None Reported - Past Family History Father Family Medical History: Deep Vein Thrombosis (DVT) Sister(s) Family Medical History: Deep Vein Thrombosis (DVT) Medications and Allergies Home Medications Medication Instructions Recorded Confirmed Type Multivitamins, Thera [Multivitamin 1 tab PO DIRECTED 07/25/20 07/31/21 History (formulary)] Atorvastatin [Lipitor] 80 mg PO HS 08/11/20 07/31/21 History Clopidogrel [Plavix] 75 mg PO DAILY #90 tab 08/14/20 07/31/21 Rx Aspirin 81 mg PO DAILY PRN 07/31/21 07/31/21 History Allergies Allergy/AdvReac Type Severity Reaction Status Date / Time No Known Allergies Allergy Verified 07/31/21 06:26 Physical Exam Osteopathic Statement: *. No significant issues noted on an osteopathic structural exam other than those noted in the History and Physical/Consult. Vitals: Vital Signs Temp Pulse Resp BP Pulse Ox 08/02/21 15:30 100 15 118/91 96 08/02/21 15:00 111 H 13 143/89 94 L 08/02/21 14:30 118 H 18 124/87 96 08/02/21 14:00 105 H 14 132/89 94 L 08/02/21 13:30 100 17 127/86 95 08/02/21 13:15 105 H 14 127/86 95 08/02/21 13:00 101 H 12 128/82 95 08/02/21 12:45 110 H 11 L 132/87 94 L 08/02/21 12:30 107 H 13 129/81 100 08/02/21 12:15 101 H 18 126/90 96 08/02/21 12:00 98.2 F 116 H 13 136/91 93 L 08/02/21 11:45 102 H 16 128/85 97 08/02/21 11:15 102 H 12 126/90 96 08/02/21 11:05 103 H 15 123/85 96 08/02/21 10:50 98.3 F 105 H 16 126/79 90 L 08/02/21 07:00 96 13 140/81 95 08/02/21 06:00 96 16 132/81 95 08/02/21 05:00 96 15 125/84 93 L 08/02/21 04:00 98.3 F 99 15 121/82 92 L 08/02/21 03:00 92 15 126/85 94 L 08/02/21 02:00 97 15 121/84 93 L 08/02/21 01:00 96 7 L 135/89 95 08/02/21 00:11 96 12 126/85 95 08/02/21 00:00 98.6 F 98 15 134/85 94 L 08/01/21 23:00 108 H 15 132/86 92 L 08/01/21 22:00 106 H 16 126/85 91 L 08/01/21 21:00 101 H 15 132/91 91 L 08/01/21 20:00 98.5 F 99 16 113/77 93 L 08/01/21 19:00 109 H 17 129/77 92 L 08/01/21 18:00 98 13 122/88 93 L 08/01/21 17:00 112 H 19 150/93 93 L Intake and Output 08/02/21 08/02/21 08/02/21 06:59 14:59 22:59 Intake Total 600 743.5 75 Output Total 650 640 Balance -50 103.5 75 Intake: IV 600 743.5 75 Sodium Chloride 0.9% 1, 75 000 ml In Empty Bag 1 bag @ 75 mls/hr IV .[id number] [facility] Rx#:[id number] Sodium Chloride 0.9% 1, 600 375 000 ml In Empty Bag 1 bag @ 75 mls/hr IV .[id number] [facility] Rx#:[id number] Output: Urine 650 640 Other: Voiding Method Urinal Urinal # Voids 1 Weight 82 kg Results CBC & Chem 7: 08/02/21 12:34 08/02/21 07:37 Labs: Abnormal Lab Results - Last 24 Hours (Table) 08/02/21 08/02/21 08/02/21 Range/Units 07:37 07:37 12:34 WBC 12.0 H 12.1 H (3.8-10.6) k/uL RBC 3.29 L 2.91 L (4.30-5.90) m/uL Hgb 11.0 L D 9.8 L (13.0-17.5) gm/dL Hct 32.9 L 28.9 L (39.0-53.0) % Neutrophils # 9.3 H 9.0 H (1.3-7.7) k/uL Sodium 136 L (137-145) mmol/L BUN 25 H (9-20) mg/dL Calcium 8.2 L (8.4-10.2) mg/dL
[2021-08-02] MEDS: ATORVASTATIN 80 MG TAB PO SCH (20:55)
[2021-08-02] MEDS: HEPARIN SODIUM 1,000 UN/ML (10ML VL) IV PRN (21:05)
[2021-08-02 22:56] LABS: % Iron Saturation 11.88 (15.00-50.00)
[2021-08-03] MEDS: HEPARIN SODIUM 1,000 UN/ML (10ML VL) IV PRN ×2 (03:02→17:08)
[2021-08-03] MEDS: SODIUM CHLORIDE 0.9% 1,000 ML in EMPTY BAG 1 BAG IV SCH (03:10)
[2021-08-03] MEDS: HYDROmorphone 1 MG/ML 1 ML SYRINGE IVP PRN ×3 (05:22→11:25)
[2021-08-03 08:16] LABS: Basophils # (A) 0.1 k/uL (0-0.2); Basophils % (A) 0 %; Eosinophils # (A) 0.4 k/uL (0-0.7); Eosinophils % (A) 3 %; HCT 26.5 % (39.0-53.0); HGB 9.1 gm/dL (13.0-17.5); Lymphocytes # (A) 1.6 k/uL (1.0-4.8); Lymphocytes % (A) 12 %; MCH 34.1 pg (25.0-35.0); MCHC 34.4 g/dL (31.0-37.0); Monocytes % (A) 8 %; Neutrophils # (A) 10.3 k/uL (1.3-7.7); Neutrophils % (A) 77 %; Platelet Count 262 k/uL (150-450); RBC 2.68 m/uL (4.30-5.90); RDW 12.7 % (11.5-15.5); WBC 13.5 k/uL (3.8-10.6)
[2021-08-03 08:32] LABS: Partial Thromboplastin Time 51.3 sec (22.0-30.0); Prothrombin Time 10.7 sec (9.0-12.0)
[2021-08-03 08:57] LABS: African American GFR (CKD) >90 (>60 ml/min/1.73 sqM); Anion Gap 7 mmol/L; Blood Urea Nitrogen 16 mg/dL (9-20); Calcium 8.1 mg/dL (8.4-10.2); Carbon Dioxide 23 mmol/L (22-30); Chloride 104 mmol/L (98-107); Glucose 93 mg/dL (74-99); Non-African American GFR(CKD) >90 (>60 ml/min/1.73 sqM); Potassium 4.1 mmol/L (3.5-5.1); Sodium 134 mmol/L (137-145)
[2021-08-03] MEDS: MULTIVITAMINS, THERA 1 EACH TAB PO SCH (09:09)
[2021-08-03] MEDS: CLOPIDOGREL 75 MG TAB PO SCH (09:10)
[2021-08-03] MEDS: HEPARIN SOD,PORK IN 0.45% NACL 25,000 UNIT in 0.45% NACL 1 250ML.BAG IV SCH ×2 (09:11→12:44)
--- NOTE | 2021-08-03 09:11 | P.PN ---
Subjective Progress Note Date: 08/03/21 Pt is doing okay today. Continues to have purple to black second/third toes on left foot. Significant pain. Objective - Vital Signs Vital signs: Vital Signs Temp 98.2 F 08/03/21 00:00 Pulse 106 H 08/03/21 07:00 Resp 12 08/03/21 07:00 BP 130/86 08/03/21 07:00 Pulse Ox 95 08/03/21 07:00 Intake & Output 08/02/21 08/03/21 08/03/21 18:59 06:59 18:59 Intake Total 1043.5 1166.409 75 Output Total 1040 750 Balance 3.5 416.409 75 Weight 78.5 kg Intake: IV 1043.5 Sodium Chloride 0.9% 1, 75 000 ml In Empty Bag 1 bag @ 75 mls/hr IV .[id number] [facility] Rx#:[id number] Sodium Chloride 0.9% 1, 600 000 ml In Empty Bag 1 bag @ 75 mls/hr IV .[id number] [facility] Rx#:[id number] Intake, IV Titration 966.409 75 Amount Heparin Sod,Pork in 0.45% 216.409 NaCl 25,000 unit In 0.45 % NaCl 1 250ml.bag @ 12 UNITS/KG/HR 9.84 mls/hr IV .Q24H [facility] Rx#: [id number] Sodium Chloride 0.9% 1, 750 75 000 ml In Empty Bag 1 bag @ 75 mls/hr IV .[id number] [facility] Rx#:[id number] Oral 200 Output: Urine 1040 750 Other: Voiding Method Urinal Urinal # Voids 1 - Exam Gen: awake, alert HEENT: normocephalic, atraumatic, good hearing acuity, moist mucous membranes Resp: good air exchange, breathing comfortably with no accessory muscle use CVS: good distal perfusion x 4, GI: soft, NTTP, ND : no SPT, no CVAT, hernandez catheter not present MSK: no pitting edema, no clubbing, second/third toes, dusky/purple, borderline necrotic to necrotic at tips. Neuro: non-focal, moving all extremities Psych: cooperative, euthymic mood - Labs CBC & Chem 7: 08/03/21 07:27 08/03/21 07:27 Labs: Abnormal Lab Results - Last 24 Hours (Table) 08/02/21 08/02/21 08/02/21 Range/Units 07:37 12:34 19:57 WBC 12.1 H (3.8-10.6) k/uL RBC 2.91 L (4.30-5.90) m/uL Hgb 9.8 L (13.0-17.5) gm/dL Hct 28.9 L (39.0-53.0) % Neutrophils # 9.0 H (1.3-7.7) k/uL APTT 30.2 H (22.0-30.0) sec Sodium (137-145) mmol/L Calcium (8.4-10.2) mg/dL Iron 28 L (65-175) ug/dL % Saturation 11.88 L (15.00-50.00) Transferrin 166.0 L (204.0-354.0) mg/dL Ferritin 327.0 H (22.0-322.0) ng/mL 08/03/21 08/03/21 08/03/21 Range/Units 01:52 07:27 07:27 WBC 13.5 H (3.8-10.6) k/uL RBC 2.68 L (4.30-5.90) m/uL Hgb 9.1 L (13.0-17.5) gm/dL Hct 26.5 L (39.0-53.0) % Neutrophils # 10.3 H (1.3-7.7) k/uL APTT 33.9 H 51.3 H (22.0-30.0) sec Sodium (137-145) mmol/L Calcium (8.4-10.2) mg/dL Iron (65-175) ug/dL % Saturation (15.00-50.00) Transferrin (204.0-354.0) mg/dL Ferritin (22.0-322.0) ng/mL 08/03/21 Range/Units 07:27 WBC (3.8-10.6) k/uL RBC (4.30-5.90) m/uL Hgb (13.0-17.5) gm/dL Hct (39.0-53.0) % Neutrophils # (1.3-7.7) k/uL APTT (22.0-30.0) sec Sodium 134 L (137-145) mmol/L Calcium 8.1 L (8.4-10.2) mg/dL Iron (65-175) ug/dL % Saturation (15.00-50.00) Transferrin (204.0-354.0) mg/dL Ferritin (22.0-322.0) ng/mL Assessment and Plan Assessment: Critical limb ischemia left leg due to hihg-grade left common femoral iliac artery stenosis -s/p balloon arthroplasty and prior stenting - likely femoral endarterectomy in 24 hours per vascular surgery - ASA, plavix, statin, MVI - NSQIP score for femoral endarectomy == Serious complications 5.8% == Cardiac 0.1% = 0.0% Acute blood loss anemia - follow CBC - Check iron studies Tobacco abuse -cessation -nicotine replacement DVT prophylaxis: Heparin gtt Anticipated discharge: 3-[address]: home
--- NOTE | 2021-08-03 09:45 | P.PN ---
Subjective Progress Note Date: 08/03/21 This is a 56-year-old male seen as a follow-up in the ICU. He has peripheral arterial disease with a history of left superficial femoral artery and popliteal artery stenting. He had some pain and discoloration in his left lower extremity after skiing trip, and was seen by his cardiology. He underwent imaging found to have thrombosis of the left previous stent. Had an angiogram with TPA infusion and LILIA. He's had some improvement to this flow and pain to the left lower extremity. He is still having difficulty with moving his toes on the left foot. He is able to flex at the ankle and move toes slightly. He is tentatively scheduled today to undergo a open left femoral endarterectomy with patch angioplasty however this has been rescheduled until tomorrow. He has been afebrile. Objective - Vital Signs Vital signs: Vital Signs Temp 98.2 F 08/03/21 00:00 Pulse 106 H 08/03/21 07:00 Resp 12 08/03/21 07:00 BP 130/86 08/03/21 07:00 Pulse Ox 95 08/03/21 07:00 Intake & Output 08/02/21 08/03/21 08/03/21 18:59 06:59 18:59 Intake Total 1043.5 1166.409 75 Output Total 1040 750 Balance 3.5 416.409 75 Weight 78.5 kg Intake: IV 1043.5 Sodium Chloride 0.9% 1, 75 000 ml In Empty Bag 1 bag @ 75 mls/hr IV .[id number] [facility] Rx#:[id number] Sodium Chloride 0.9% 1, 600 000 ml In Empty Bag 1 bag @ 75 mls/hr IV .[id number] [facility] Rx#:[id number] Intake, IV Titration 966.409 75 Amount Heparin Sod,Pork in 0.45% 216.409 NaCl 25,000 unit In 0.45 % NaCl 1 250ml.bag @ 12 UNITS/KG/HR 9.84 mls/hr IV .Q24H [facility] Rx#: [id number] Sodium Chloride 0.9% 1, 750 75 000 ml In Empty Bag 1 bag @ 75 mls/hr IV .[id number] [facility] Rx#:[id number] Oral 200 Output: Urine 1040 750 Other: Voiding Method Urinal Urinal # Voids 1 - Exam General appearance: The patient is alert, oriented, appears in no acute di stress. HET: Head is normocephalic and atraumatic. Neck: Supple without lymphadenopathy. Heart: S1 S2. Regular rate and rhythm. Lungs: Clear to auscultation bilaterally. Abdomen: Soft, nontender, nondistended. Extremities: Bilateral lower extremity edema. Left foot, second and third toes with necrotic changes. Great toe pink with some duskiness. Bilateral feet are warm to the touch. Posterior tibialis and dorsalis pedis Doppler signal obtained bilaterally. Neurological: No focal deficits. - Labs CBC & Chem 7: 08/03/21 07:27 08/03/21 07:27 Labs: Abnormal Lab Results - Last 24 Hours (Table) 08/02/21 08/02/21 08/02/21 Range/Units 07:37 12:34 19:57 WBC 12.1 H (3.8-10.6) k/uL RBC 2.91 L (4.30-5.90) m/uL Hgb 9.8 L (13.0-17.5) gm/dL Hct 28.9 L (39.0-53.0) % Neutrophils # 9.0 H (1.3-7.7) k/uL APTT 30.2 H (22.0-30.0) sec Iron 28 L (65-175) ug/dL % Saturation 11.88 L (15.00-50.00) Transferrin 166.0 L (204.0-354.0) mg/dL Ferritin 327.0 H (22.0-322.0) ng/mL 08/03/21 08/03/21 08/03/21 Range/Units 01:52 07:27 07:27 WBC 13.5 H (3.8-10.6) k/uL RBC 2.68 L (4.30-5.90) m/uL Hgb 9.1 L (13.0-17.5) gm/dL Hct 26.5 L (39.0-53.0) % Neutrophils # 10.3 H (1.3-7.7) k/uL APTT 33.9 H 51.3 H (22.0-30.0) sec Iron (65-175) ug/dL % Saturation (15.00-50.00) Transferrin (204.0-354.0) mg/dL Ferritin (22.0-322.0) ng/mL Assessment and Plan Assessment: 1. High-grade left common femoral/external iliac artery stenosis 2. Previous acute limb ischemia, with revascularization and patent stent 3. Critical ischemia with coloration changes to the second and third digits of the left foot Plan: 1. Continue ICU management 2. Resume heparin drip, discontinue tomorrow morning 08/04/2021 at 05 100 3. Heart healthy diet, nothing by mouth after midnight 4. Plan for open left femoral endarterectomy with patch angioplasty tomorrow 5. Patient may increase activity as tolerated The impression and plan of care has been dictated as directed. I performed a history and examination of this patient, discussed the same with the dictator. I agree with the dictator's note ,documented as a scribe. Any additional findings or plans will be noted.
--- NOTE | 2021-08-03 10:20 | PN ---
PROGRESS NOTE FOLLOW-UP NOTE: Jose Martin is a 56-year-old gentleman who is admitted to hospital with acute left leg limb ischemia. He underwent infusion of thrombolytic into the left popliteal and superficial femoral artery and also had successful angioplasty of the left anterior tibial and the left popliteal artery. He has since been evaluated by Vascular Surgery and is to go to surgery tomorrow. Patient has gangrene affecting the second and third toes of the left foot. Other than discomfort at the gangrene site, he is doing well. On exam, heart rate is 100 beats per minute. Blood pressure is 130/86. Respiratory rate is 18. Chest exam reveals good air entry bilaterally. Heart exam reveals first and second heart sounds and a systolic murmur at the apex. Abdomen is soft. Examination of extremities did not reveal any edema. Dorsalis pedis and posterior tibial pulses are not palpable. He has gangrene involving the left second and third toes. Labs show a hemoglobin of 9.1, platelet count is 262, potassium is 4.1, creatinine is 0.69. Patient is currently on aspirin, Lipitor, Plavix, intravenous heparin. ASSESSMENT: Acute limb ischemia, status post thrombolytic therapy and angioplasty. Patient is to undergo surgical revascularization. MMODL / IJN: [id number] /
[2021-08-03] MEDS: SODIUM CHLORIDE 0.9% 1,000 ML IV SCH (11:25)
[2021-08-03] MEDS ORDERED: NALOXONE 0.4 MG/ML 1 ML VIAL IV PRN (12:01)
[2021-08-03] MEDS ORDERED: HYDROmorphone 1 MG/ML 1 ML SYRINGE IVP PRN (12:08)
[2021-08-03] MEDS: HYDROmorphone PCA 10 MG/50 ML BAG IV PRN (13:50)
--- NOTE | 2021-08-03 16:05 | IR ---
Fluoroscopy HISTORY: TPA recheck 3.2 minutes fluoroscopy time supplied to the referring clinician. 64 intraoperative C-arm images doc ument the procedure. See dictated report from cardiology.
--- NOTE | 2021-08-03 16:06 | IR ---
Fluoroscopy HISTORY: Peripheral vascular occlusive disease 24.6 minutes fluoroscopy time supplied to the referring clinician. 372 intraoperative C-arm images d ocument the procedure. See dictated report from cardiology.
[2021-08-03 20:06] LABS: HCT 24.7 % (39.0-53.0); HGB 8.4 gm/dL (13.0-17.5); MCH 34.3 pg (25.0-35.0); MCHC 34.1 g/dL (31.0-37.0); MCV 100.7 fL (80.0-100.0); Platelet Count 267 k/uL (150-450); RBC 2.45 m/uL (4.30-5.90); RDW 13.3 % (11.5-15.5); WBC 12.3 k/uL (3.8-10.6)
[2021-08-03] MEDS: LACTATED RINGERS 1,000 ML IV SCH (20:41)
[2021-08-03] MEDS: SODIUM CHLORIDE 0.9% 500 ML 500 ML IV SCH (20:42)
[2021-08-03] MEDS: ATORVASTATIN 80 MG TAB PO SCH (20:53)
[2021-08-04 07:39] LABS: Basophils % (A) 0 %; Eosinophils # (A) 0.6 k/uL (0-0.7); Eosinophils % (A) 6 %; HCT 23.5 % (39.0-53.0); HGB 7.8 gm/dL (13.0-17.5); Lymphocytes # (A) 1.4 k/uL (1.0-4.8); Lymphocytes % (A) 15 %; MCH 33.7 pg (25.0-35.0); MCHC 33.4 g/dL (31.0-37.0); Macrocytosis Slight; Mean Platelet Volume 7.6; Monocytes # (A) 0.8 k/uL (0-1.0); Monocytes % (A) 9 %; Neutrophils # (A) 6.5 k/uL (1.3-7.7); Neutrophils % (A) 68 %; Platelet Count 291 k/uL (150-450); RBC 2.33 m/uL (4.30-5.90); RDW 13.3 % (11.5-15.5); WBC 9.5 k/uL (3.8-10.6)
[2021-08-04 07:53] LABS: African American GFR (CKD) >90 (>60 ml/min/1.73 sqM); Anion Gap 2 mmol/L; Blood Urea Nitrogen 15 mg/dL (9-20); Calcium 8.1 mg/dL (8.4-10.2); Carbon Dioxide 28 mmol/L (22-30); Chloride 106 mmol/L (98-107); Glucose 89 mg/dL (74-99); Non-African American GFR(CKD) >90 (>60 ml/min/1.73 sqM); Potassium 3.9 mmol/L (3.5-5.1); Sodium 136 mmol/L (137-145)
[2021-08-04] MEDS: CLOPIDOGREL 75 MG TAB PO SCH (08:53)
[2021-08-04] MEDS: MULTIVITAMINS, THERA 1 EACH TAB PO SCH (08:53)
[2021-08-04] MEDS ORDERED: SODIUM CHLORIDE 0.9% 1,000 ML IV ONE (10:17)
[2021-08-04] MEDS ORDERED: SODIUM CHLORIDE 0.9% 50 ML with ceFAZolin 2,000 MG IV ONE ×2 (10:17)
[2021-08-04] MEDS ORDERED: HEPARIN SODIUM,PORCINE 10,000 UNIT in SODIUM CHLORIDE 0.9% 1,000 ML IRRIGATION ONE (10:47)
[2021-08-04] MEDS ORDERED: ceFAZolin 2,000 MG in SODIUM CHLORIDE 0.9% 500 ML IRRIGATION ONE (10:48)
--- NOTE | 2021-08-04 11:01 | CDI ---
Documentation Clarification Form Date: 08/04/2021 10:22:02 AM From: Stacey Lara RN, CCDS Admit Date: 07/31/2021 09:12:00 AM Patient Name: Jose Martin Ch Visit Number: [id number] Discharge Date: ATTENTION: The Clinical Documentation Specialists (CDI) and [facility] Coding Staff appreciate your assistance in clarifying documentation. Please respond to the clarification below the line at the bottom and electronically sign. The CDI & [facility] Coding staff will review the response and follow-up if needed. Please note: Queries are made part of the Legal Health Record. If you have any questions, please contact the author of this message via ITS. Dr. Karine Mills Acute blood loss anemia is documented in the medical consult on 08/02/21 and subsequent progress notes, and patient had angiogram, placement of EKO in the left popliteal and left SFA, and infusion of TPA in left popliteal and left SFA on 07/31/21. Additional clarification is requested regarding the relationship, if any, that exists between the diagnosis and the procedure. Patients Admitting Diagnosis: acute ischemia of the left leg Post-Operative Diagnosis: Same Procedure performed: Left lower extremity angiogram. Intravascular ultrasound, left popliteal and left SFA and left common femoral artery. Placement of infusion catheter in the left popliteal and left SFA, infusion of TPA. Ultrasound-guided access of the right common femoral artery. History/Risk Factors: Peripheral vascular disease, Stenting of the left SFA and popliteal, Hypertension, Clinical Indicators: 56-year-old male with PAD with planned intervention. He underwent lower extremity angiogram on 07/31/21 which showed thrombus in the left popliteal and left SFA due to in stent thrombosis patient had intravascular ultrasound and completed with infusion catheter placement and TPA infused for 24 hours. 3 HGB 17.3, HCT 52, 36 HGB 11.0, HCT 32.9, HGB 9.8, HCT 28.9 / HGB 9.1, HCT 26.5 3/ Iron 28, [id number], % Saturation 11.88, Transferrin 166.0, Ferritin 327.0 3 IM consultation: Acute blood loss anemia Treatment: ICU/Telemetry monitoring Monitor CBC daily, check iron studies What relationship, if any, exists between the diagnosis of acute blood loss anemia and the procedure? [ ] Acute blood loss anemia is a complication of the procedure [x] Acute blood loss anemia is an expected outcome of the surgical procedure [ ] Acute blood loss anemia is related to patients co-morbid condition(s) of [insert co-morbid ds] & not a complication of the procedure [ ] Other please specify ____ [ ] Unable to determine (Template Last Revised: July 2020) MTDD
[2021-08-04] MEDS ORDERED: LACTATED RINGERS 1,000 ML IV ONE (11:44)
--- NOTE | 2021-08-04 12:16 | P.PN ---
Subjective Patient is feeling better this morning. Pain has improved. He is to undergo surgical revascularization later today. On exam: Patient is comfortable at rest vital signs are stable chest exam reveals good air entry bilaterally heart exam reveals first and second heart sounds no gallop abdomen is soft exemption extremities reveals feeble pulses bi laterally in his feet improved compared to yesterday. He has gangrene involving Second and third toes of the left foot is Assessment and plan: Peripheral arterial disease with acute ischemic leg status post thrombolytic therapy and angioplasty Patient is to undergo surgical revascularization today I will continue current medications Objective - Vital Signs Vital signs: Vital Signs Temp 98 F 08/04/21 08:00 Pulse 95 08/04/21 10:00 Resp 13 08/04/21 10:00 BP 113/62 08/04/21 10:00 Pulse Ox 94 L 08/04/21 10:00 Intake & Output 08/03/21 08/04/21 08/04/21 18:59 06:59 18:59 Intake Total 1192.132 455.498 3970.0 Output Total 400 301 Balance 792.132 53.308 1133.0 Weight 80 kg Intake: IV 006 747 3264.0 Sodium Chloride 0.9% 1, 600 000 ml In Empty Bag 1 bag @ 75 mls/hr IV .[id number] [facility] Rx#:[id number] Sodium Chloride 0.9% 500 20 240 80 ml 500 ml @ 20 mls/hr IV .Q24H [facility] Rx#:[id number] Intake, IV Titration 322.132 114.308 Amount Heparin Sod,Pork in 0.45% 207.132 114.308 NaCl 25,000 unit In 0.45 % NaCl 1 250ml.bag @ 12 UNITS/KG/HR 9.84 mls/hr IV .Q24H [facility] Rx#: [id number] Lactated Ringers 1,000 ml 40 @ 20 mls/hr IV .Q24H [facility] Rx#:[id number] Sodium Chloride 0.9% 1, 75 000 ml In Empty Bag 1 bag @ 75 mls/hr IV .[id number] [facility] Rx#:[id number] Oral 250 Output: Urine 400 300 Stool 1 Other: Voiding Method Urinal Urinal Urinal # Voids 1 1 # Bowel Movements 1 - Labs CBC & Chem 7: 08/04/21 07:21 08/04/21 07:21 Labs: Abnormal Lab Results - Last 24 Hours (Table) 08/03/21 08/03/21 08/03/21 Range/Units 14:48 19:45 19:45 WBC 12.3 H (3.8-10.6) k/uL RBC 2.45 L (4.30-5.90) m/uL Hgb 8.4 L (13.0-17.5) gm/dL Hct 24.7 L (39.0-53.0) % MCV 100.7 H (80.0-100.0) fL APTT 32.6 H 52.5 H (22.0-30.0) sec Sodium (137-145) mmol/L Calcium (8.4-10.2) mg/dL 08/04/21 08/04/21 Range/Units 07:21 07:21 WBC (3.8-10.6) k/uL RBC 2.33 L (4.30-5.90) m/uL Hgb 7.8 L (13.0-17.5) gm/dL Hct 23.5 L (39.0-53.0) % MCV 101.0 H (80.0-100.0) fL APTT (22.0-30.0) sec Sodium 136 L (137-145) mmol/L Calcium 8.1 L (8.4-10.2) mg/dL
[2021-08-04] MEDS ORDERED: GELATIN SPONGE,ABSORB (LARGE) 1 EACH SPONGE TOPICAL ONE ×2 (12:18)
[2021-08-04] MEDS ORDERED: THROMBIN (BOVINE) 5,000 UNIT VIAL TOPICAL ONE ×2 (12:18→12:32)
[2021-08-04] MEDS ORDERED: HYDROmorphone 0.5 MG/0.5 ML SYRINGE IVP ONE ×2 (12:20→15:05)
[2021-08-04] MEDS ORDERED: MORPHINE SULFATE 4 MG/ML SYRINGE IV PRN (13:27)
[2021-08-04] MEDS ORDERED: HYDROmorphone 0.5 MG/0.5 ML SYRINGE IVP PRN (16:04)
--- NOTE | 2021-08-04 16:27 | P.PN ---
Subjective Progress Note Date: 08/04/21 - Chief Complaint left foot pain - History of Present Illness Patient is a 56 yo male with known peripheral vascular disease status post stenting of the left SFA and popliteal, hypertension, and prior tobacco abuse who initially presented for symptomatic peripheral arterial disease with planned intervention. Patient subsequently underwent lower extremity angiogram on 07/31/21 which showed thrombus in the left popliteal and left SFA due to in stent thrombosis, patient had intravascular ultrasound completed with infusion catheter placed and TPA infused for 24 hours. On 08/01 he continued to have some leg pain and angiogram demonstrated residual thrombus and subsequently he underwent ultrasonic catheter (EKO) placed in the left popliteal and left SFA. On she was again taken to the circus laborer with removal of the infusion catheter from the left popliteal and left FSA with successful balloon angioplasty of the left anterior tibial artery, successful balloon angioplasty of the left popliteal artery, and a right femoral artery angiogram demonstrating left femoral artery occlusion. He was seen by vascular surgery and paln are for inpatient femoral Endarectomy. Patient seen and examined at bedside. He reports that he did well after initial procedure 1 year ago. He then went skiing in [facility] and developed worsening leg pain. Over 2 weeks he went from having mild pain to not being able to walk on his leg and his foot being ischemic. He denies any recent chest pain, shortness of breath, nausea, vomiting, diarrhea, difficulty urinating. He is independent in ADLS. Pertinent positives and negatives as discussed in HPI, a complete review of systems was performed and all other systems are negative. Interval history: Patient was examined at bedside. He denies any chest pain or shortness of breath. Left foot Pain has improved. He is to undergo surgical revascularization later today. Objective - Vital Signs Vital signs: Vital Signs Temp 99.7 F H 08/04/21 13:07 Pulse 80 08/04/21 14:35 Resp 17 08/04/21 14:35 BP 119/60 08/04/21 14:35 Pulse Ox 100 08/04/21 14:35 Intake & Output 08/03/21 08/04/21 08/04/21 18:59 06:59 18:59 Intake Total 1192.132 646.370 9515.0 Output Total 400 301 345 Balance 792.132 53.308 1488.0 Weight 80 kg Intake: IV 074 265 1714.0 Sodium Chloride 0.9% 1, 600 000 ml In Empty Bag 1 bag @ 75 mls/hr IV .[id number] [facility] Rx#:[id number] Sodium Chloride 0.9% 500 20 240 80 ml 500 ml @ 20 mls/hr IV .Q24H [facility] Rx#:[id number] Intake, IV Titration 322.132 114.308 Amount Heparin Sod,Pork in 0.45% 207.132 114.308 NaCl 25,000 unit In 0.45 % NaCl 1 250ml.bag @ 12 UNITS/KG/HR 9.84 mls/hr IV .Q24H [facility] Rx#: [id number] Lactated Ringers 1,000 ml 40 @ 20 mls/hr IV .Q24H [facility] Rx#:[id number] Sodium Chloride 0.9% 1, 75 000 ml In Empty Bag 1 bag @ 75 mls/hr IV .[id number] [facility] Rx#:[id number] Oral 250 Output: Urine 400 300 325 Stool 1 Estimated Blood Loss 20 Other: Voiding Method Urinal Urinal Urinal # Voids 1 1 # Bowel Movements 1 - Exam General: non toxic, no distress, appears at stated age Derm: warm, dry Head: atraumatic, normocephalic, symmetric Eyes: EOMI, no lid lag, anicteric sclera, pupils equal round reactive to light ENT: Nose and ears atraumatic, no thrush, no pharyngeal erythema Neck: No thyromegaly, no cervical lymphadenopathy, trachea midline, supple Mouth: no lip lesion, mucus membranes moist Cardiovascular: S1S2 reg, no murmur, positive posterior tibial pulse bilateral, no edema, capillary refill less than 2 seconds Lungs: clear to ascultation bilateral, no ronchi, no rales, no wheeze, no accessory muscle use Abdominal: soft, nontender to palpation, no guarding, no appreciable organomegaly, normal bowel sounds Ext: no gross muscle atrophy, muscle strength muscle strength 5 out of 5 in all 4 extremities, no contractures Neuro: CN II-XI grossly intact, light touch intact all 4 extremities, finger to nose within normal limits, Psych: Alert, oriented, appropriate affect - Labs CBC & Chem 7: 08/04/21 07:21 08/04/21 07:21 Labs: Abnormal Lab Results - Last 24 Hours (Table) 03/12/1808/03/21 08/04/21 Range/Units 19:45 19:45 07:21 WBC 12.3 H (3.8-10.6) k/uL RBC 2.45 L 2.33 L (4.30-5.90) m/uL Hgb 8.4 L 7.8 L (13.0-17.5) gm/dL Hct 24.7 L 23.5 L (39.0-53.0) % MCV 100.7 H 101.0 H (80.0-100.0) fL APTT 52.5 H (22.0-30.0) sec Sodium (137-145) mmol/L Calcium (8.4-10.2) mg/dL 08/04/21 Range/Units 07:21 WBC (3.8-10.6) k/uL RBC (4.30-5.90) m/uL Hgb (13.0-17.5) gm/dL Hct (39.0-53.0) % MCV (80.0-100.0) fL APTT (22.0-30.0) sec Sodium 136 L (137-145) mmol/L Calcium 8.1 L (8.4-10.2) mg/dL Assessment and Plan Assessment: Assessment and plan: #Critical limb ischemia left leg due to hihg-grade left common femoral iliac artery stenosis -Previous acute and ischemia with revascularization and patent stent. -s/p balloon arthroplasty and prior stenting - ASA, plavix, statin, MVI -Plan for left femoral endarterectomy with patch angioplasty today Acute blood loss anemia - follow CBC - Check iron studies Tobacco abuse -cessation -nicotine replacement DVT prophylaxis: Heparin gtt Anticipated discharge: 2-3 days
[2021-08-04] MEDS: SODIUM CHLORIDE 0.9% 500 ML 500 ML IV SCH (20:36)
[2021-08-04] MEDS: ATORVASTATIN 80 MG TAB PO SCH (20:36)
[2021-08-04] MEDS: LACTATED RINGERS 1,000 ML IV SCH (20:37)
[2021-08-05] MEDS: HYDROmorphone PCA 10 MG/50 ML BAG IV PRN (04:16)
--- NOTE | 2021-08-05 06:28 | P.OP ---
Date of Procedure: 08/04/21 Preoperative Diagnosis: Left lower extremity limb ischemia s/p thrombolysis and revascularization Left external iliac and common femoral artery occlusive disease >90% Postoperative Diagnosis: Same Procedure(s) Performed: Left common femoral and external iliac artery endarterectomy with patch angioplasty Anesthesia: MONIK Surgeon: Damian Oconnor Estimated Blood Loss (ml): 20 Pathology: other (femoral plaque) Condition: stable Disposition: PACU Indications for Procedure: 56 year old gentleman with history of left SFA stenting presented to the hospital with acute onset left lower extremity pain and discoloration. He was found to have acute limb ischemia with thrombosis of his left lower extremity. He underwent thrombolysis and revascularization by Dr. Peter and during the final angiogram and IVUS it was noted that he had a severe stenosis at the external iliac and common femoral artery which would require endarterectomy which he presents to the OR today. Operative Findings: Severe calcified plaque and stenosis of the external iliac and femoral junction just beneath the inguinal ligament Description of Procedure: After written and informed consent was obtained from the patient and all risks, benefits, and complications were described the patient was brought to the operative suite and laid in a supine position. The area of the left groin was prepped and draped in the usual sterile fashion. Timeout was performed and antibiotics were administered prior to the incision. An oblique incision was then created with a 10 blade scalpel and dissection was carried down to the common femoral artery with electrocautery. Meticulous dissection was carried around the common femoral, profundus and superficial femoral artery and controlled with vessel loops. 5000 units of heparin was given and redosed throughout the case to keep ACT above 200. Proximal and distal control was obtained and arteriotomy was created with an 11 blade scalpel and extended with Covington Vásquez scissors from the external iliac to the superficial femoral artery. There was dense plaque extending from the external iliac to the SFA junction. Endarterectomy was then performed with a freer and plaque was removed. The distal aspect at the superficial femoral artery was feathered and the distal posterior wall was tacked with 7-0 prolene to prevent dissection. All free debris was removed and a .8x8 cm bovine patch was sutured in place with two 6-0 prolene sutures in a running fashion. Once completed control was released and good back bleeding was noted from the SFA and profundus. Proximal control was released revealing good pulsatile flow. Hemostasis was assured with gelfoam and thrombin. Once hemostatic the area was irrigated with antibiotic solution and the incision was closed in a multilayer fashion. The skin was cleansed and dressings placed. The patient tolerated the procedure well and had good multiphasic signal in the posterior tibial artery with a warm foot. He was then sent to PACU for recovery.
[2021-08-05 06:58] LABS: Basophils % (A) 0 %; Eosinophils # (A) 0.4 k/uL (0-0.7); Eosinophils % (A) 3 %; HCT 24.3 % (39.0-53.0); HGB 8.2 gm/dL (13.0-17.5); Lymphocytes # (A) 1.1 k/uL (1.0-4.8); Lymphocytes % (A) 8 %; MCHC 33.6 g/dL (31.0-37.0); MCV 101.3 fL (80.0-100.0); Macrocytosis Slight; Mean Platelet Volume 7.2; Monocytes % (A) 8 %; Neutrophils # (A) 9.8 k/uL (1.3-7.7); Neutrophils % (A) 79 %; Platelet Count 369 k/uL (150-450); RDW 13.6 % (11.5-15.5); WBC 12.5 k/uL (3.8-10.6)
[2021-08-05 07:09] LABS: ALT 32 U/L (4-49); AST 38 U/L (17-59); African American GFR (CKD) >90 (>60 ml/min/1.73 sqM); Albumin 2.8 g/dL (3.5-5.0); Alkaline Phosphatase 48 U/L (38-126); Anion Gap 4 mmol/L; Blood Urea Nitrogen 15 mg/dL (9-20); Calcium 8.2 mg/dL (8.4-10.2); Carbon Dioxide 26 mmol/L (22-30); Chloride 106 mmol/L (98-107); Glucose 100 mg/dL (74-99); Non-African American GFR(CKD) >90 (>60 ml/min/1.73 sqM); Potassium 4.1 mmol/L (3.5-5.1); Sodium 136 mmol/L (137-145); Total Bilirubin 0.3 mg/dL (0.2-1.3); Total Protein 5.3 g/dL (6.3-8.2)
[2021-08-05] MEDS: MULTIVITAMINS, THERA 1 EACH TAB PO SCH (08:31)
[2021-08-05] MEDS: ASPIRIN 81 MG PO SCH (08:31)
[2021-08-05] MEDS: CLOPIDOGREL 75 MG TAB PO SCH (08:31)
[2021-08-05] MEDS ORDERED: RIVAROXABAN 2.5 MG TABLET PO SCH (09:00)
--- NOTE | 2021-08-05 10:04 | P.PN ---
Subjective Progress Note Date: 08/05/21 Patient is seen and examined sitting up in bed. He is postop day #1 for left common femoral and external iliac artery endarterectomy with patch angioplasty for left lower extremity limb ischemia status post from places and revascularization as well as left external iliac and common femoral artery occlusive disease greater than 90%. He states that he is doing well. He states pain is improved. He is able to move his left lower extremity still has some difficulty with moving his toes. He's been afebrile. He does have a CHARCOAL KILN BURNER pump in place however states he is not using it regularly. He denies any abdominal pain, nausea or vomiting. He's had no bleeding from his access site. Tolerating his diet. WBC 12.5 hemoglobin stable at 8.2. Objective - Vital Signs Vital signs: Vital Signs Temp 98.7 F 08/05/21 03:40 Pulse 106 H 08/05/21 03:40 Resp 18 08/05/21 03:40 BP 121/75 08/05/21 03:40 Pulse Ox 95 08/05/21 03:40 Intake & Output 08/04/21 08/05/21 08/05/21 18:59 06:59 18:59 Intake Total 2073.0 Output Total 345 1200 Balance 1728.0 -1200 Intake: IV 1833.0 Sodium Chloride 0.9% 500 80 ml 500 ml @ 20 mls/hr IV .Q24H [facility] Rx#:[id number] Oral 240 Output: Urine 325 1200 Estimated Blood Loss 20 Other: Voiding Method Urinal - Exam General appearance: The patient is alert, oriented, appears in no acute distress. HET: Head is normocephalic and atraumatic. Neck: Supple without lymphadenopathy. Heart: S1 S2. Regular rate and rhythm. Lungs: Clear to auscultation bilaterally. Abdomen: Soft, nontender, nondistended. Extremities: Left groin access site clean dry and intact. Bilateral lower e xtremity edema. Left foot, second and third toes with necrotic/ischemic changes. Palpable bilateral femoral pulses. Bilateral feet are warm to the touch. Posterior tibialis and dorsalis pedis Doppler signal obtained bilaterally. Neurological: No focal deficits. - Labs CBC & Chem 7: 08/05/21 06:31 08/05/21 06:31 Labs: Abnormal Lab Results - Last 24 Hours (Table) 08/05/21 08/05/21 Range/Units 06:31 06:31 WBC 12.5 H (3.8-10.6) k/uL RBC 2.40 L (4.30-5.90) m/uL Hgb 8.2 L (13.0-17.5) gm/dL Hct 24.3 L (39.0-53.0) % MCV 101.3 H (80.0-100.0) fL Neutrophils # 9.8 H (1.3-7.7) k/uL Sodium 136 L (137-145) mmol/L Glucose 100 H (74-99) mg/dL Calcium 8.2 L (8.4-10.2) mg/dL Total Protein 5.3 L (6.3-8.2) g/dL Albumin 2.8 L (3.5-5.0) g/dL Assessment and Plan Assessment: 1. Postop day #1 left common femoral and external iliac artery endarterectomy with patch angioplasty 2. High-grade left common femoral/external iliac artery stenosis 3. Previous acute limb ischemia, with revascularization and patent stent 4. Critical ischemia with coloration changes to the second and third digits of the left foot Plan: 1. Continue aspirin and Plavix 2. Recommend discontinuing CHARCOAL KILN BURNER pump and transitioning to oral pain medication with IV pain medication as needed for severe pain 3. Wound cultures ordered and sent 4. Consult to wound care for left foot wound, local wound care 5. Increase ambulation 6. PT consulted Thank you for this consultation, we will continue follow. The impression and plan of care has been dictated as directed. Dr. Lovett I performed a history and examination of this patient, discussed the same with the dictator. I agree with the dictator's note ,documented as a scribe. Any additional findings or plans will be noted.
[2021-08-05] MEDS: HYDROcodone/APAP 5-325MG 1 EACH TAB PO PRN ×3 (10:40→20:35)
[2021-08-05] MEDS: HYDROmorphone 1 MG/ML 1 ML SYRINGE IVP PRN ×3 (12:14→23:43)
[2021-08-05] MEDS: HEPARIN SOD,PORK IN 0.45% NACL 25,000 UNIT in 0.45% NACL 1 250ML.BAG IV SCH (13:07)
--- NOTE | 2021-08-05 13:12 | P.PN ---
Subjective Progress Note Date: 08/05/21 - Chief Complaint left foot pain - History of Present Illness Patient is a 56 yo male with known peripheral vascular disease status post stenting of the left SFA and popliteal, hypertension, and prior tobacco abuse who initially presented for symptomatic peripheral arterial disease with planned intervention. Patient subsequently underwent lower extremity angiogram on 07/31/21 which showed thrombus in the left popliteal and left SFA due to in stent thrombosis, patient had intravascular ultrasound completed with infusion catheter placed and TPA infused for 24 hours. On 08/01 he continued to have some leg pain and angiogram demonstrated residual thrombus and subsequently he underwent ultrasonic catheter (EKO) placed in the left popliteal and left SFA. On she was again taken to the quality assurance qa lab technician with removal of the infusion catheter from the left popliteal and left FSA with successful balloon angioplasty of the left anterior tibial artery, successful balloon angioplasty of the left popliteal artery, and a right femoral artery angiogram demonstrating left femoral artery occlusion. He was seen by vascular surgery and paln are for inpatient femoral Endarectomy. Patient seen and examined at bedside. He reports that he did well after initial procedure 1 year ago. He then went skiing in [facility] and developed worsening leg pain. Over 2 weeks he went from having mild pain to not being able to walk on his leg and his foot being ischemic. He denies any recent chest pain, shortness of breath, nausea, vomiting, diarrhea, difficulty urinating. He is independent in ADLS. Pertinent positives and negatives as discussed in HPI, a complete review of systems was performed and all other systems are negative. Interval history: Patient was examined at bedside. He denies any chest pain or shortness of breath. Left foot Pain has improved. Status post surgical revascularization postoperative day #1. SHADOW GRAPH WEIGHT OPERATOR pump has been discontinued by vascular surgery. Objective - Vital Signs Vital signs: Vital Signs Temp 98.2 F 08/05/21 08:00 Pulse 62 08/05/21 12:00 Resp 17 08/05/21 12:00 BP 110/68 08/05/21 12:00 Pulse Ox 99 08/05/21 12:00 Intake & Output 08/04/21 08/05/21 08/05/21 18:59 06:59 18:59 Intake Total 2073.0 Output Total 345 1200 Balance 1728.0 -1200 Intake: IV 1833.0 Sodium Chloride 0.9% 500 80 ml 500 ml @ 20 mls/hr IV .Q24H [facility] Rx#:[id number] Oral 240 Output: Urine 325 1200 Estimated Blood Loss 20 Other: Voiding Method Urinal - Exam General: non toxic, no distress, appears at stated age Derm: warm, dry Head: atraumatic, normocephalic, symmetric Eyes: EOMI, no lid lag, anicteric sclera, pupils equal round reactive to light ENT: Nose and ears atraumatic, no thrush, no pharyngeal erythema Neck: No thyromegaly, no cervical lymphadenopathy, trachea midline, supple Mouth: no lip lesion, mucus membranes moist Cardiovascular: S1S2 reg, no murmur, positive posterior tibial pulse bilateral, no edema, capillary refill less than 2 seconds Lungs: clear to ascultation bilateral, no ronchi, no rales, no wheeze, no accessory muscle use Abdominal: soft, nontender to palpation, no guarding, no appreciable organomegaly, normal bowel sounds Ext: no gross muscle atrophy, muscle strength muscle strength 5 out of 5 in all 4 extremities, no contractures Neuro: CN II-XI grossly intact, light touch intact all 4 extremities, finger to nose within normal limits, Psych: Alert, oriented, appropriate affect - Labs CBC & Chem 7: 08/05/21 06:31 08/05/21 06:31 Labs: Abnormal Lab Results - Last 24 Hours (Table) 08/05/21 08/05/21 Range/Units 06:31 06:31 WBC 12.5 H (3.8-10.6) k/uL RBC 2.40 L (4.30-5.90) m/uL Hgb 8.2 L (13.0-17.5) gm/dL Hct 24.3 L (39.0-53.0) % MCV 101.3 H (80.0-100.0) fL Neutrophils # 9.8 H (1.3-7.7) k/uL Sodium 136 L (137-145) mmol/L Glucose 100 H (74-99) mg/dL Calcium 8.2 L (8.4-10.2) mg/dL Total Protein 5.3 L (6.3-8.2) g/dL Albumin 2.8 L (3.5-5.0) g/dL Assessment and Plan Assessment: Assessment and plan: #Critical limb ischemia left leg due to hihg-grade left common femoral iliac artery stenosis -Previous acute and ischemia with revascularization and patent stent. -Status post left common femoral and external iliac artery endarterectomy with patch angioplasty August 04 -High-grade left common femoral/external iliac artery stenosis -Previous acute limb ischemia, with revascularization and patent stent -Critical ischemia with coloration changes to the second and third digits of the left foot - ASA, plavix, statin, MVI -Management per vascular surgery #Acute blood loss anemia -Iron studies suggestive of iron deficiency anemia with low ferritin -Start IV iron daily 3 days -Consult hematology #Tobacco abuse -cessation -nicotine replacement #DVT prophylaxis: Heparin gtt Anticipated discharge: Once medically stable. Vascular surgery
[2021-08-05] MEDS: LACTATED RINGERS 1,000 ML IV SCH (14:29)
[2021-08-05] MEDS: SODIUM FERRIC GLUCONAT-SUCROSE 125 MG in SODIUM CHLORIDE 0.9% 100 ML IVPB SCH (15:41)
[2021-08-05] MEDS: SODIUM CHLORIDE 0.9% 500 ML 500 ML IV SCH (20:36)
[2021-08-05] MEDS: ATORVASTATIN 80 MG TAB PO SCH (20:36)
[2021-08-05] MEDS: diphenhydrAMINE 50 MG/ML 1 ML VIAL IVP PRN (21:58)
[2021-08-06] MEDS: HYDROmorphone 1 MG/ML 1 ML SYRINGE IVP PRN ×3 (03:57→12:58)
[2021-08-06] MEDS: CLOPIDOGREL 75 MG TAB PO SCH (08:15)
[2021-08-06] MEDS: MULTIVITAMINS, THERA 1 EACH TAB PO SCH (08:15)
[2021-08-06] MEDS: ASPIRIN 81 MG PO SCH (08:15)
[2021-08-06 08:59] LABS: Basophils % (A) 0 %; Eosinophils # (A) 0.7 k/uL (0-0.7); Eosinophils % (A) 6 %; HCT 25.2 % (39.0-53.0); HGB 8.2 gm/dL (13.0-17.5); Lymphocytes # (A) 1.2 k/uL (1.0-4.8); Lymphocytes % (A) 11 %; MCHC 32.7 g/dL (31.0-37.0); Mean Platelet Volume 7.5; Monocytes # (A) 0.9 k/uL (0-1.0); Monocytes % (A) 8 %; Neutrophils # (A) 8.4 k/uL (1.3-7.7); Neutrophils % (A) 74 %; Platelet Count 462 k/uL (150-450); RDW 13.1 % (11.5-15.5); WBC 11.3 k/uL (3.8-10.6)
[2021-08-06] MEDS: SODIUM FERRIC GLUCONAT-SUCROSE 125 MG in SODIUM CHLORIDE 0.9% 100 ML IVPB SCH (09:07)
[2021-08-06] MEDS: diphenhydrAMINE 50 MG/ML 1 ML VIAL IVP PRN (09:07)
--- NOTE | 2021-08-06 09:11 | P.PN ---
Subjective Progress Note Date: 08/06/21 Patient is seen and examined sitting up in bed. He is postop day #2 for left common femoral and external iliac artery endarterectomy with patch angioplasty for left lower extremity limb ischemia status post from places and revascularization as well as left external iliac and common femoral artery occlusive disease greater than 90%. He states that he is doing well. He is able to move his left lower extremity still has some difficulty with moving his toes. He's been afebrile. His DOUGHMAKER pump was discontinued yesterday. He is managing his pain well. Physical therapy is going to work with patient this morning, nonweightbearing to the left foot. No acute changes through the night. Objective - Vital Signs Vital signs: Vital Signs Temp 97.9 F 08/06/21 04:00 Pulse 84 08/06/21 04:00 Resp 18 08/06/21 04:00 BP 106/62 08/06/21 04:00 Pulse Ox 94 L 08/06/21 04:00 Intake & Output 08/05/21 08/06/21 08/06/21 18:59 06:59 18:59 Intake Total 240 Output Total 675 Balance -435 Intake: Oral 240 Output: Urine 675 Other: # Voids 1 0 - Exam General appearance: The patient is alert, oriented, appears in no acute distress. HET: Head is normocephalic and atraumatic. Neck: Supple without lymphadenopathy. Heart: S1 S2. Regular rate and rhythm. Lungs: Clear to auscultation bilaterally. Abdomen: Soft, nontender, nondistended. Extremities: Left groin surgical site well approximated, clean dry and intact. Bilateral lower extremity edema. Left foot, second and third toes with necrotic/ischemic changes. Palpable bilateral femoral pulses. Bilateral feet are warm to the touch. Posterior tibialis and dorsalis pedis Doppler signal obtained bilaterally. Neurological: No focal deficits. - Labs CBC & Chem 7: 08/06/21 08:04 08/05/21 06:31 Labs: Abnormal Lab Results - Last 24 Hours (Table) 08/06/21 Range/Units 08:04 WBC 11.3 H (3.8-10.6) k/uL RBC 2.50 L (4.30-5.90) m/uL Hgb 8.2 L (13.0-17.5) gm/dL Hct 25.2 L (39.0-53.0) % MCV 101.0 H (80.0-100.0) fL Plt Count 462 H (150-450) k/uL Neutrophils # 8.4 H (1.3-7.7) k/uL Microbiology - Last 24 Hours (Table) 08/05/21 09:46 Gram Stain - Preliminary Foot - Left Wound Culture - Preliminary 08/05/21 09:46 Anaerobic Culture - Preliminary Foot - Left Assessment and Plan Assessment: 1. Postop day #1 left common femoral and external iliac artery endarterectomy with patch angioplasty 2. High-grade left common femoral/external iliac artery stenosis 3. Previous acute limb ischemia, with revascularization and patent stent 4. Critical ischemia with coloration changes to the second and third digits of the left foot Plan: 1. Continue aspirin and Plavix 2. Wound cultures ordered and sent 3. Consult to wound care for left foot wound, local wound care 4. Increase ambulation 5. PT consulted, nonweightbearing to left lower extremity. Thank you for this consultation, she is cleared for discharge from vascular surgery once evaluated by physical therapy The impression and plan of care has been dictated as directed. Dr. Alvarado I performed a history and examination of this patient, discussed the same with the dictator. I agree with the dictator's note ,documented as a scribe. Any additional findings or plans will be noted.
[2021-08-06 09:15] LABS: ALT 40 U/L (4-49); AST 39 U/L (17-59); African American GFR (CKD) >90 (>60 ml/min/1.73 sqM); Albumin 3.1 g/dL (3.5-5.0); Alkaline Phosphatase 44 U/L (38-126); Anion Gap 4 mmol/L; Blood Urea Nitrogen 16 mg/dL (9-20); Calcium 8.5 mg/dL (8.4-10.2); Carbon Dioxide 30 mmol/L (22-30); Chloride 104 mmol/L (98-107); Glucose 96 mg/dL (74-99); Non-African American GFR(CKD) >90 (>60 ml/min/1.73 sqM); Potassium 4.4 mmol/L (3.5-5.1); Sodium 138 mmol/L (137-145); Total Bilirubin 0.3 mg/dL (0.2-1.3); Total Protein 5.7 g/dL (6.3-8.2)
[2021-08-06] MEDS: HYDROcodone/APAP 5-325MG 1 EACH TAB PO PRN ×2 (09:53→15:42)
[2021-08-06 10:47] VITALS: TEMP 98.4
--- NOTE | 2021-08-06 12:19 | P.CONS ---
History of Present Illness - Reason for Consult Consult date: 08/06/21 wound care - History of Present Illness This is a [age]-year-old patient being seen by the wound care center on for nonhealing ulceration to the left dorsal foot patient also has ischemic necrotic changes to the second and third digit of the left foot. Patient underwent a left common femoral external iliac artery endarterectomy. Patient states that the ulcerations have been there for a while. The dorsal foot ulc eration has reopened since previously. Dorsal ulceration measures approximately 1.5 x 3 x 0.1 cm granulation is noted to the wound bed with minimal slough, the wound edges are attached to the wound base. Review Of Systems: Constitutional: No fever, no chills, no night sweats. No weight change. No weakness, fatigue or lethargy. No daytime sleepiness. Integumentary:reports wounds, no lesions. No rash or pruritus. No unusual bruising. No change in hair or nails. Physical exam: General Appearance: Alert, cooperative, no distress, appears stated age. Skin: See HPI all other Skin color, texture, tugor normal, no rashes or lesions. Neurologic: Alert oriented x3 Assessment: 1. Atherosclerosis of [place] vessel of left lower extremity status post revascularization 2. Nonhealing ulceration of left foot with fat layer exposure 3. Gangrene of second and third digit Plan: 1. Apply honey gel to the left dorsal foot ulceration and in the webbing of the second and third digit. Apply dry gauze roll gauze and secure with paper tape. Change Tuesday. Thank you for the consultation any questions please contact the wound care center DNP note has been reviewed and discussed with Dr. Shirley and the impression and plan of care has been directed as dictated. Past Medical History Past Medical History: Deep Vein Thrombosis (DVT), Vascular Disorder Additional Past Medical History / Comment(s): ulcerative wound on left foot, varicose veins, left inguinal hernia, DVT after needing a cast History of Any Multi-Drug Resistant Organisms: None Reported Additional Past Surgical History / Comment(s): Vein stripped left leg, angiogram, stents left calf Past Anesthesia/Blood Transfusion Reactions: No Reported Reaction Past Psychological History: No Psychological Hx Reported Smoking Status: Current some day smoker Past Alcohol Use History: Occasional Additional Past Alcohol Use History / Comment(s): trying to quit-now smokes only occ. Past Drug Use History: None Reported - Past Family History Father Family Medical History: Deep Vein Thrombosis (DVT) Sister(s) Family Medical History: Deep Vein Thrombosis (DVT) Medications and Allergies Home Medications Medication Instructions Recorded Confirmed Type Multivitamins, Thera [Multivitamin 1 tab PO DIRECTED 07/25/20 07/31/21 History (formulary)] Atorvastatin [Lipitor] 80 mg PO HS 08/11/20 07/31/21 History Clopidogrel [Plavix] 75 mg PO DAILY #90 tab 08/14/20 07/31/21 Rx Aspirin 81 mg PO DAILY PRN 07/31/21 07/31/21 History Allergies Allergy/AdvReac Type Severity Reaction Status Date / Time No Known Allergies Allergy Verified 07/31/21 06:26 Physical Exam Vitals: Vital Signs Temp Pulse Pulse Resp BP Pulse Ox 08/06/21 11:32 65 16 152/82 98 08/06/21 08:00 98.4 F 74 16 128/67 98 08/06/21 04:00 97.9 F 84 18 106/62 94 L 08/05/21 23:38 97.5 F L 79 16 107/62 93 L 08/05/21 19:29 98.6 F 90 18 111/70 93 L 08/05/21 15:37 91 16 115/62 96 Intake and Output 08/05/21 08/06/21 08/06/21 22:59 06:59 14:59 Intake Total 240 120 Output Total 675 Balance -435 120 Intake: Oral 240 120 Output: Urine 675 Other: # Voids 1 0 Results CBC & Chem 7: 08/06/21 08:04 08/06/21 08:04 Labs: Abnormal Lab Results - Last 24 Hours (Table) 08/06/21 08/06/21 Range/Units 08:04 08:04 WBC 11.3 H (3.8-10.6) k/uL RBC 2.50 L (4.30-5.90) m/uL Hgb 8.2 L (13.0-17.5) gm/dL Hct 25.2 L (39.0-53.0) % MCV 101.0 H (80.0-100.0) fL Plt Count 462 H (150-450) k/uL Neutrophils # 8.4 H (1.3-7.7) k/uL Total Protein 5.7 L (6.3-8.2) g/dL Albumin 3.1 L (3.5-5.0) g/dL Microbiology - Last 24 Hours (Table) 08/05/21 09:46 Gram Stain - Preliminary Foot - Left Wound Culture - Preliminary 08/05/21 09:46 Anaerobic Culture - Preliminary Foot - Left Assessment and Plan (1) Atherosclerosis of [place] arteries of extremities with gangrene, left leg Current Visit: Yes Status: Acute Code(s): I70.262 - ATHSCL MAKAH ARTERIES OF EXTREMITIES W GANGRENE, LEFT LEG SNOMED Code(s): 507780208 (2) Non-pressure chronic ulcer of other part of left foot with fat layer exposed Current Visit: Yes Status: Acute Code(s): L97.522 - NON-PRS CHRONIC ULCER OTH PRT LEFT FOOT W FAT LAYER EXPOSED SNOMED Code(s): 689198832 (3) Gangrene of toe of left foot Current Visit: Yes Status: Acute Code(s): I96 - GANGRENE, NOT ELSEWHERE CLASSIFIED SNOMED Code(s): 91111718262112867
--- NOTE | 2021-08-06 12:54 | P.PN ---
Subjective This is a 56-year-old male past medical history of peripheral vascular disease status post stent of the left SFA and popliteal, former smoker, hypertension. Patient follows in the office with Dr. Peter. He was diagnosed with acute limb ischemia of the left foot. He underwent imaging found to have thrombosis of the left previous stent. Had an angiogram with TPA infusion and LILIA with Dr. Peter. He underwent left common femoral and external iliac artery endarterectomy with patch angioplasty with Dr. Oconnor on 08/04/2021. Patient is doing well. He denies any chest pain or shortness of breath. He has some soreness at groin site. He is able to move his left lower extremity and still some difficulty with moving his toes. He is no longer on a CENTRAL OFFICE EQUIPMENT ENGINEER pump. Vitals signs are stable. Labs reviewed. GENERAL: Well-appearing, well-nourished and in no acute distress. NECK: Supple without JVD or thyromegaly. LUNGS: Breath sounds clear to auscultation bilaterally. Respiration equal and unlabored. No wheezes, rales or rhonchi. HEART: Regular rate and rhythm without murmurs, rubs or gallops. S1 and S2 heard. SKIN: Left groin site clean dry intact no hematoma EXTREMITIES: Left lower leg edema Left foot with necrotic/ischemic second and third toes. Bilateral feet are warm to touch ASSESSMENT Acute limb ischemia s/p revascularization and prior stenting Critical limb ischemia left leg Status post left common femoral and external iliac artery endarterectomy with patch angioplasty PLAN Patient on aspirin and Plavix, Per Dr. Chicas ok to discontinue Eliquis 2.5mg BID and just continue with aspirin and plavix Patient is stable from a cardiology perspective, on discharge follow up with Dr. Peter Nurse Practitioner note has been reviewed, I agree with a documented findings and plan of care. Patient was seen and examined. Objective - Vital Signs Vital signs: Vital Signs Temp 98.4 F 08/06/21 08:00 Pulse 65 08/06/21 11:32 Resp 16 08/06/21 11:32 BP 152/82 08/06/21 11:32 Pulse Ox 98 08/06/21 11:32 Intake & Output 08/05/21 08/06/21 08/06/21 18:59 06:59 18:59 Intake Total 240 120 Output Total 675 Balance -435 120 Intake: Oral 240 120 Output: Urine 675 Other: # Voids 1 0 - Labs CBC & Chem 7: 08/06/21 08:04 08/06/21 08:04 Labs: Abnormal Lab Results - Last 24 Hours (Table) 08/06/21 08/06/21 Range/Units 08:04 08:04 WBC 11.3 H (3.8-10.6) k/uL RBC 2.50 L (4.30-5.90) m/uL Hgb 8.2 L (13.0-17.5) gm/dL Hct 25.2 L (39.0-53.0) % MCV 101.0 H (80.0-100.0) fL Plt Count 462 H (150-450) k/uL Neutrophils # 8.4 H (1.3-7.7) k/uL Total Protein 5.7 L (6.3-8.2) g/dL Albumin 3.1 L (3.5-5.0) g/dL Microbiology - Last 24 Hours (Table) 08/05/21 09:46 Gram Stain - Preliminary Foot - Left Wound Culture - Preliminary 08/05/21 09:46 Anaerobic Culture - Preliminary Foot - Left
--- NOTE | 2021-08-06 12:55 | P.PN ---
Subjective This is a 56-year-old male past medical history of peripheral vascular disease status post stent of the left SFA and popliteal, former smoker, hypertension. Patient follows in the office with Dr. Peter. He was diagnosed with acute limb ischemia of the left foot. He underwent imaging found to have thrombosis of the left previous stent. Had an angiogram with TPA infusion and LILIA with Dr. Peter. He underwent left common femoral and external iliac artery endarterectomy with patch angioplasty with Dr. Oconnor on 08/04/2021. Patient is doing well. He denies any chest pain or shortness of breath. He has some soreness at groin site. He is able to move his left lower extremity and still some difficulty with moving his toes. He does have a DIRECT SUPPORT PROFESSIONAL CAREGIVER pump. Vitals signs are stable. Labs reviewed, WBC 12.5 we will need 0.2, platelets 369, sodium 136, potassium 4.1, BUN 15, serum creatinine 0.7. He's currently maintained on aspirin 81 mg daily, Plavix 75 mg daily, Eliquis 2.5 mg twice a day , atorvastatin 80 mg nightly GENERAL: Well-appearing, well-nourished and in no acute distress. NECK: Supple without JVD or thyromegaly. LUNGS: Breath sounds clear to auscultation bilaterally. Respiration equal and unlabored. No wheezes, rales or rhonchi. HEART: Regular rate and rhythm without murmurs, rubs or gallops. S1 and S2 heard. SKIN: Left groin site clean dry intact no hematoma EXTREMITIES: Left lower leg edema Left foot with necrotic/ischemic second and third toes. Bilateral feet are warm to touch ASSESSMENT Acute limb ischemia s/p revascularization and prior stenting Critical limb ischemia left leg Status post left common femoral and external iliac artery endarterectomy with patch angioplasty PLAN Patient on aspirin and Plavix, Per Dr. Chicas ok to discontinue Eliquis 2.5mg BID and just continue with aspirin and plavix Patient is stable from a cardiology perspective, on discharge follow up with Dr. Peter Nurse Practitioner note has been reviewed, I agree with a documented findings and plan of care. Patient was seen and examined. Objective - Vital Signs Vital signs: Vital Signs Temp 98.4 F 08/06/21 08:00 Pulse 65 08/06/21 11:32 Resp 16 03/10/22 11:32 BP 152/82 08/06/21 11:32 Pulse Ox 98 08/06/21 11:32 Intake & Output 08/05/21 08/06/21 08/06/21 18:59 06:59 18:59 Intake Total 240 120 Output Total 675 Balance -435 120 Intake: Oral 240 120 Output: Urine 675 Other: # Voids 1 0 - Labs CBC & Chem 7: 08/06/21 08:04 08/06/21 08:04 Labs: Abnormal Lab Results - Last 24 Hours (Table) 08/06/21 08/06/21 Range/Units 08:04 08:04 WBC 11.3 H (3.8-10.6) k/uL RBC 2.50 L (4.30-5.90) m/uL Hgb 8.2 L (13.0-17.5) gm/dL Hct 25.2 L (39.0-53.0) % MCV 101.0 H (80.0-100.0) fL Plt Count 462 H (150-450) k/uL Neutrophils # 8.4 H (1.3-7.7) k/uL Total Protein 5.7 L (6.3-8.2) g/dL Albumin 3.1 L (3.5-5.0) g/dL Microbiology - Last 24 Hours (Table) 08/05/21 09:46 Gram Stain - Preliminary Foot - Left Wound Culture - Preliminary 08/05/21 09:46 Anaerobic Culture - Preliminary Foot - Left
--- NOTE | 2021-08-06 14:02 | P.DS ---
Providers Date of admission: 07/31/21 09:12 Expected date of discharge: 08/06/21 Attending physician: Stephanie Lynn DO Consults: 08/02/21 10:01 Consult Physician Routine Consulting Provider: Damian Oconnor Consult Reason/Comments: Pt needs left femoral artery surgery Do you want consulting provider notified?: Already Contacted 08/02/21 10:26 Consult Physician Routine Consulting Provider: Ephraim Peter Consult Reason/Comments: PAD Do you want consulting provider notified?: Already Contacted 08/05/21 13:09 Consult Physician Routine Consulting Provider: Ranjith Mercado Consult Reason/Comments: Iron deficiency anemia Do you want consulting provider notified?: Yes Primary care physician: [facility] Course: History of Present Illness Patient is a 56 yo male with known peripheral vascular disease status post stenting of the left SFA and popliteal, hypertension, and prior tobacco abuse who initially presented for symptomatic peripheral arterial disease with planned intervention. Patient subsequently underwent lower extremity angiogram on 07/31/21 which showed thrombus in the left popliteal and left SFA due to in stent thrombosis, patient had intravascular ultrasound completed with infusion catheter placed and TPA infused for 24 hours. On 08/01 he continued to have some leg pain and angiogram demonstrated residual thrombus and subsequently he underwent ultrasonic catheter (EKO) placed in the left popliteal and left SFA. On she was again taken to the computer lab assistant with removal of the infusion catheter from the left popliteal and left FSA with successful balloon angioplasty of the left anterior tibial artery, successful balloon angioplasty of the left popliteal artery, and a right femoral artery angiogram demonstrating left femoral artery occlusion. He was seen by vascular surgery and paln are for inpatient femoral Endarectomy. Patient seen and examined at bedside. He reports that he did well after initial procedure 1 year ago. He then went skiing in [facility] and developed worsening leg pain. Over 2 weeks he went from having mild pain to not being able to walk on his leg and his foot being ischemic. He denies any recent chest pain, shortness of breath, nausea, vomiting, diarrhea, difficulty urinating. He is independent in ADLS. Pertinent positives and negatives as discussed in HPI, a complete review of systems was performed and all other systems are negative. Hospital course and detailed the problem list: #Critical limb ischemia left leg due to hihg-grade left common femoral iliac artery stenosis -Previous acute and ischemia with revascularization and patent stent. -Status post left common femoral and external iliac artery endarterectomy with patch angioplasty August 04 -High-grade left common femoral/external iliac artery stenosis -Previous acute limb ischemia, with revascularization and patent stent -Critical ischemia with coloration changes to the second and third digits of the left foot - ASA, plavix, statin, MVI -Vascular surgery cleared the patient for discharge -Patient will be discharged home with home health #Acute blood loss anemia -Iron studies suggestive of iron deficiency anemia with low ferritin -Start IV iron daily -Hemoglobin is improving 8.5 today -Hematology oncology consulted - #Tobacco abuse -cessation -nicotine replacement Physical examination on discharge General: non toxic, no distress, appears at stated age Derm: warm, dry Head: atraumatic, normocephalic, symmetric Eyes: EOMI, no lid lag, anicteric sclera, pupils equal round reactive to light ENT: Nose and ears atraumatic, no thrush, no pharyngeal erythema Neck: No thyromegaly, no cervical lymphadenopathy, trachea midline, supple Mouth: no lip lesion, mucus membranes moist Cardiovascular: S1S2 reg, no murmur, positive posterior tibial pulse bilateral, no edema, capillary refill less than 2 seconds Lungs: clear to ascultation bilateral, no ronchi, no rales, no wheeze, no accessory muscle use Abdominal: soft, nontender to palpation, no guarding, no appreciable organomegaly, normal bowel sounds Ext: no gross muscle atrophy, muscle strength muscle strength 5 out of 5 in all 4 extremities, no contractures Neuro: CN II-XI grossly intact, light touch intact all 4 extremities, finger to nose within normal limits, Psych: Alert, oriented, appropriate affect Extremities: The left second and third toe still blue at the left foot is warm. Time spent in discharge process 33 minutes Patient Condition at Discharge: Stable Plan - Discharge Summary Discharge Rx Participant: Yes New Discharge Prescriptions: New HYDROcodone/APAP 7.5-325MG [[place] 7.5-325] 1 tab PO Q6HR PRN 3 Days #12 tab PRN Reason: Pain Continue Multivitamins, Thera [Multivitamin (formulary)] 1 tab PO DIRECTED Atorvastatin [Lipitor] 80 mg PO HS Clopidogrel [Plavix] 75 mg PO DAILY #90 tab Aspirin 81 mg PO DAILY PRN PRN Reason: Per Protocol Discharge Medication List Multivitamins, Thera [Multivitamin (formulary)] 1 tab PO DIRECTED 07/25/20 [History] Atorvastatin [Lipitor] 80 mg PO HS 08/11/20 [History] Clopidogrel [Plavix] 75 mg PO DAILY #90 tab 08/14/20 [Rx] Aspirin 81 mg PO DAILY PRN 07/31/21 [History] HYDROcodone/APAP 7.5-325MG [[place] 7.5-325] 1 tab PO Q6HR PRN 3 Days #12 tab 08/06/21 [Rx] Follow up Appointment(s)/Referral(s): Ephraim Peter MD [STAFF PHYSICIAN] - 1 Week Damian Oconnor DO [STAFF PHYSICIAN] - 1 Week [facility] [NON-STAFF] - 1 Week Discharge Disposition: HOME WITH HOME HEALTH SERVICES
--- NOTE | 2021-08-06 16:52 | P.CONS ---
History of Present Illness - Reason for Consult Consult date: 08/06/21 iron def anemia Requesting physician: Oxana Lopez - Chief Complaint Vascular procedure - History of Present Illness Patient is a 56 yo male with Hx of HTN, chronic tobacco user with PVD, recent stenting admitted for planned intervention. Lower extremity angiogram 07/31/21 showed thrombus in the left popliteal and left SFA due to in stent thrombosis, patient had intravascular ultrasound completed with infusion catheter placed and TPA infused for 24 hours. He reports that he had oozing from the left groin site for about 48 hours. He also had thrombectomy. Hematology is consulted for anemia, new onset this admit, ferritin 300, iron, sat and TIBC low. Pt denies Hx of anemia, no iron supplement. Denies fevers, N,V, abd pain, hematuria, hematochezia, melena*RN reported a maroon stool today. Pt is fully ambulatory, he has not required transfusion. He has received 3 doses of parenteral iron Review of Systems 10 point ROS is neg except as stated in HPI Past Medical History Past Medical History: Deep Vein Thrombosis (DVT), Vascular Disorder Additional Past Medical History / Comment(s): ulcerative wound on left foot, varicose veins, left inguinal hernia, DVT after needing a cast History of Any Multi-Drug Resistant Organisms: None Reported Additional Past Surgical History / Comment(s): Vein stripped left leg, angiogram, stents left calf Past Anesthesia/Blood Transfusion Reactions: No Reported Reaction Past Psychological History: No Psychological Hx Reported Smoking Status: Current some day smoker Past Alcohol Use History: Occasional Additional Past Alcohol Use History / Comment(s): trying to quit-now smokes only occ. Past Drug Use History: None Reported - Past Family History Father Family Medical History: Deep Vein Thrombosis (DVT) Sister(s) Family Medical History: Deep Vein Thrombosis (DVT) Medications and Allergies Home Medications Medication Instructions Recorded Confirmed Type Multivitamins, Thera [Multivitamin 1 tab PO DIRECTED 07/25/20 07/31/21 History (formulary)] Atorvastatin [Lipitor] 80 mg PO HS 08/11/20 07/31/21 History Clopidogrel [Plavix] 75 mg PO DAILY #90 tab 08/14/20 07/31/21 Rx Aspirin 81 mg PO DAILY PRN 07/31/21 07/31/21 History HYDROcodone/APAP 7.5-325MG [[place] 1 tab PO Q6HR PRN 3 Days #12 tab 08/06/21 Rx 7.5-325] Allergies Allergy/AdvReac Type Severity Reaction Status Date / Time No Known Allergies Allergy Verified 07/31/21 06:26 Physical Exam Vitals: Vital Signs Temp Pulse Resp BP Pulse Ox 08/06/21 04:00 97.9 F 84 18 106/62 94 L 08/05/21 23:38 97.5 F L 79 16 107/62 93 L 08/05/21 19:29 98.6 F 90 18 111/70 93 L 08/05/21 15:37 91 16 115/62 96 08/05/21 12:00 62 17 110/68 99 Intake and Output 08/05/21 08/06/21 08/06/21 22:59 06:59 14:59 Intake Total 240 Output Total 675 Balance -435 Intake: Oral 240 Output: Urine 675 Other: # Voids 1 0 - Constitutional General appearance: average body habitus, cooperative, no acute distress - EENT Eyes: anicteric sclerae, EOMI ENT: hearing grossly normal, normal oropharynx - Neck Neck: no lymphadenopathy - Respiratory Respiratory: bilateral: diminished - Cardiovascular Rhythm: regular Heart sounds: normal: S1, S2 Abnormal Heart Sounds: no systolic murmur, no diastolic murmur, no rub, no S3 Gallop, no S4 Gallop, no click, no other - Gastrointestinal General gastrointestinal: no absent bowel sounds, no decreased bowel sounds, no distended, no hepatomegaly, no hyperactive bowel sounds, normal bowel sounds, no organomegaly, no rigid, no scaphoid, soft, no splenomegaly, no tenderness, no u mbilical hernia, no ventral hernia - Integumentary LEFT LEG/FOOT discoloration of 2nd toe, foul drainage from between 2nd and 3rd toes, swelling and redness - Neurologic Neurologic: CNII-XII intact - Musculoskeletal Musculoskeletal: strength equal bilaterally - Psychiatric Psychiatric: A&O x's 3, appropriate affect, intact judgment & insight Results CBC & Chem 7: 08/06/21 08:04 08/06/21 08:04 Labs: Microbiology - Last 24 Hours (Table) 08/05/21 09:46 Gram Stain - Preliminary Foot - Left Wound Culture - Preliminary 08/05/21 09:46 Anaerobic Culture - Preliminary Foot - Left Assessment and Plan (1) Macrocytic anemia Narrative/Plan: Iron, sat and TIBC low with elevated ferritin. Pt received 3 doses of parentera l iron, he has not needed a transfusion, Hgb stable last 2 days. Pt is being discharged. Recommended to him that he f/u with his PCP for CBC monitoring-anticipate that has pt condition stabilizes Hgb should return to baseline. Recommend B12, RBC folate tests as these were not done. Would check iron studies in 1 mo. Recommend EGD and colonoscopy-pt has never had, it is an age related cancer screen, and he has iron deficiency. Pt can be referred back to Hematology as felt to be necessary by his PCP Dr. Yousif. Did discuss with RN, she will provide pt with Gastroenterology contact info Status: Acute Priority: Medium Code(s): D53.9 - NUTRITIONAL ANEMIA, UNSPECIFIED SNOMED Code(s): 01250781
[2021-08-06 17:33] VITALS: BP 125/64; PULSE 75; RESP 17
== END 2021-08-06 16:30 | disposition home health service (06) | DRG 271 ==
LOC: CATHCVL 06:11 → 2SICU 09:12 → 3SCARD 08-04 15:35
PROVIDERS: ADMIT Internal Medicine; ATTEND Internal Medicine
PROC: B44GZZ3 Ultrasonography of Left Lower Extremity Arteries, Intravascular (ICD-10-PCS; 2021-07-31)
PROC: 04HL33Z Insertion of Infusion Device into Left Femoral Artery, Percutaneous Approach (ICD-10-PCS; 2021-07-31)
PROC: 3E05317 Introduction of Other Thrombolytic into Peripheral Artery, Percutaneous Approach (ICD-10-PCS; 2021-07-31)
PROC: 04FL3Z0 Fragmentation of Left Femoral Artery, Percutaneous Approach, Ultrasonic (ICD-10-PCS; 2021-08-01)
PROC: 04FN3Z0 Fragmentation of Left Popliteal Artery, Percutaneous Approach, Ultrasonic (ICD-10-PCS; 2021-08-01)
PROC: 047N3ZZ Dilation of Left Popliteal Artery, Percutaneous Approach (ICD-10-PCS; 2021-08-02)
PROC: 047Q3ZZ Dilation of Left Anterior Tibial Artery, Percutaneous Approach (ICD-10-PCS; 2021-08-02)
PROC: B41F1ZZ Fluoroscopy of Right Lower Extremity Arteries using Low Osmolar Contrast (ICD-10-PCS; 2021-08-02)
PROC: 04CL0ZZ Extirpation of Matter from Left Femoral Artery, Open Approach (ICD-10-PCS; 2021-08-04)
PROC: 04UJ0JZ Supplement Left External Iliac Artery with Synthetic Substitute, Open Approach (ICD-10-PCS; 2021-08-04)
PROC: 04UL0JZ Supplement Left Femoral Artery with Synthetic Substitute, Open Approach (ICD-10-PCS; 2021-08-04)
PROC: 04CJ0ZZ Extirpation of Matter from Left External Iliac Artery, Open Approach (ICD-10-PCS; principal; 2021-08-04 11:00)
DX: I70.262 Atherosclerosis of native arteries of extremities with gangrene, left leg (principal); D62 Acute posthemorrhagic anemia; I82.432 Acute embolism and thrombosis of left popliteal vein; T82.856A Stenosis of peripheral vascular stent, initial encounter; F17.200 Nicotine dependence, unspecified, uncomplicated; Z20.822 Contact with and (suspected) exposure to COVID-19; I10 Essential (primary) hypertension; Y71.2 Prosthetic and other implants, materials and accessory cardiovascular devices associated with adverse incidents; L97.522 Non-pressure chronic ulcer of other part of left foot with fat layer exposed; Z79.01 Long term (current) use of anticoagulants; Z79.02 Long term (current) use of antithrombotics/antiplatelets; Z79.82 Long term (current) use of aspirin; Z79.899 Other long term (current) drug therapy; Z71.6 Tobacco abuse counseling
CPT/HCPCS: 36200; 37211; 37213; 37214; 37224; 37228; 37252; 75710; 80048; 80053; 82728; 83540; 83550; 83735; 85025; 85027; 85384; 85610; 85730; 87070; 87075; 87205; 87635; 88304; 88311

== ENCOUNTER → 2021-08-24 | Outpatient (CLI) | payer BC ==
[2021-08-24 14:42] LABS: Basophils # (A) 0.07 X 10*3/uL (0.00-0.10); Basophils % (A) 0.9 %; Eosinophils # (A) 0.43 X 10*3/uL (0.04-0.35); Eosinophils % (A) 5.5 %; HCT 38.2 % (39.6-50.0); Immature Grans, Automated 0.3 %; Lymphocytes # (A) 1.84 X 10*3/uL (0.90-5.00); Lymphocytes % (A) 23.7 %; MCH 31.6 pg (27.0-32.0); MCHC 31.4 g/dL (32.0-37.0); MCV 100.5 fL (80.0-97.0); Mean Platelet Volume 10.1 fL (9.5-12.2); Monocytes # (A) 0.64 X 10*3/uL (0.20-1.00); Monocytes % (A) 8.2 %; NRBC Per 100 WBC 0 /100 WBCS (0.0-0.0); Neutrophils # (A) 4.78 X 10*3/uL (1.80-7.70); Neutrophils % (A) 61.4 %; Platelet Count 422 X 10*3/uL (140-440); RDW 14.1 % (11.5-14.5); WBC 7.78 X 10*3/uL (4.50-10.00)
[2021-08-24 15:17] LABS: African American GFR (CKD) 109.2 (60.0-200.0); Anion Gap 11.9 mmol/L (10.00-18.00); Blood Urea Nitrogen 15.3 mg/dL (9.0-27.0); Carbon Dioxide 25.7 mmol/L (20.0-27.5); Non-African American GFR(CKD) 94.2 (60.0-200.0); Potassium 4.9 mmol/L (3.5-5.5)
== END | disposition home or self-care (01) ==
LOC: LABPAT 09:32
PROVIDERS: ATTEND Surgery
DX: Z01.812 Encounter for preprocedural laboratory examination (principal); I96 Gangrene, not elsewhere classified
CPT/HCPCS: 36415; 80051; 82565; 84520; 85025

== ENCOUNTER 2021-09-11 10:39 | Day surgery (SDC) | payer BC ==
[2021-09-07 15:59] VITALS: BMI 24.4
[~2021-09-11 10:39] MED LIST changes: -ALPRAZolam 0.25 MG TAB PO PRN; +DEXAMETHASONE SOD PHOSPHATE 4 MG/ML 1 ML VIAL IV ONE; +HYDROmorphone 0.5 MG/0.5 ML SYRINGE IVP PRN; +LACTATED RINGERS 1,000 ML IV SCH; +MIDAZOLAM 2 MG/2 ML VIAL IV PRN; +ONDANSETRON 4 MG/2 ML VIAL IVP ONE; +SCOPOLAMINE 1 MG/72 HR PATCH TRANSDERM ONE; -SODIUM CHLORIDE 0.9% 1,000 ML in EMPTY BAG 1 BAG IV ONE
[2021-09-11] MEDS ORDERED: fentaNYL (PF) 50 MCG/ML 2 ML AMP IVP ONE ×3 (12:09→14:11)
[2021-09-11] MEDS ORDERED: LIDOCAINE 1% INJ 10MG/ML (20 ML MDV) ONE (13:07)
[2021-09-11] MEDS ORDERED: KETAMINE 10 MG/ML 20 ML VIAL ONE (13:07)
[2021-09-11] MEDS ORDERED: HYDROmorphone (PF) 1 MG/ML ONE (13:07)
[2021-09-11] MEDS ORDERED: LIDOCAINE 1%-EPI 1:100,000 20 ML VIAL SQ ONE (13:07)
[2021-09-11] MEDS ORDERED: PROPOFOL 10 MG/ML 20 ML VIAL IV ONE (13:07)
[2021-09-11] MEDS ORDERED: MIDAZOLAM 2 MG/2 ML VIAL ONE (13:07)
[2021-09-11] MEDS ORDERED: KETOROLAC 15 MG/ML 1 ML VIAL ONE (13:07)
[2021-09-11] MEDS ORDERED: fentaNYL (PF) 50 MCG/ML 2 ML AMP ONE (13:07)
--- NOTE | 2021-09-11 14:06 | P.OP ---
Date of Procedure: 09/11/21 Preoperative Diagnosis: Left second and third toe gangrene Postoperative Diagnosis: Same Procedure(s) Performed: Left second and third toe transmetatarsal amputation with wound VAC placement Anesthesia: MAC, local Surgeon: Damian Oconnor Estimated Blood Loss (ml): 10 Pathology: other (Second and third toe) Condition: stable Disposition: PACU Indications for Procedure: 56-year-old gentleman who originally presented to the hospital secondary to critical limb ischemia and gangrene of the second and third toe on the left. He underwent revascularization and thrombolysis as well as left common femoral artery endarterectomy and patch angioplasty to improve blood flow and was seen in the office afterwards and noted to have demarcation and dry gangrene of those toes in need of amputation. He presents today for amputation. Due to the large defect underneath he was instructed that he'll likely require a wound VAC in order for this to heal. Description of Procedure: After written and informed consent was obtained the patient and all risks, benefits and complications were described the patient was brought to the operative suite and laid in a supine position. The area of the left foot was prepped and draped in usual sterile fashion. Local anesthetic was then infused in a blocklike fashion around the second and third toes after timeout was completed with all parties in agreement. Utilizing a 15 blade scalpel and an incision was created around the gangrenous toes and dissection was carried down to the metatarsal joint and the second and third toe was removed. The cartilage of the metatarsal was then removed with a Rongeur. The area was copiously irrigated and hemostasis was assured. Once hemostatic and all necrotic tissue was removed sharply a small wound VAC was placed in normal fashion. The patient tolerated procedure well was sent to PACU for recovery. Plan - Discharge Summary New Discharge Prescriptions: No Action Multivitamins, Thera [Multivitamin (formulary)] 1 tab PO DAILY Atorvastatin [Lipitor] 80 mg PO HS Clopidogrel [Plavix] 75 mg PO DAILY #90 tab Aspirin 81 mg PO DAILY Gabapentin [Neurontin] 300 mg PO TID Discharge Medication List Multivitamins, Thera [Multivitamin (formulary)] 1 tab PO DAILY 07/25/20 [History] Atorvastatin [Lipitor] 80 mg PO HS 08/11/20 [History] Clopidogrel [Plavix] 75 mg PO DAILY #90 tab 08/14/20 [Rx] Aspirin 81 mg PO DAILY 07/31/21 [History] Gabapentin [Neurontin] 300 mg PO TID 09/02/21 [History] Follow up Appointment(s)/Referral(s): Damian Oconnor DO [STAFF PHYSICIAN] - 2 Weeks Discharge Disposition: HOME WITH HOME HEALTH SERVICES
[2021-09-11] MEDS ORDERED: HYDROmorphone 0.5 MG/0.5 ML SYRINGE IVP ONE (14:16)
[2021-09-11] MEDS ORDERED: MEPERIDINE 50 MG/ML SYRINGE IVP ONE ×2 (14:29→14:37)
[2021-09-11] MEDS ORDERED: LACTATED RINGERS 1,000 ML IV ONE ×2 (14:30)
[2021-09-11 14:33] VITALS: TEMP 97
[2021-09-11 15:31] VITALS: RESP 18
[2021-09-11] MEDS ORDERED: HYDROcodone/APAP 5-325MG 1 EACH TAB ONE (15:31)
[2021-09-11] MEDS ORDERED: HYDROcodone/APAP 5-325MG 1 EACH TAB PO ONE (15:33)
[2021-09-11 15:47] VITALS: BP 135/85; PULSE 90
== END 2021-09-11 16:15 | disposition home health service (06) ==
LOC: OR 10:39
PROVIDERS: ATTEND Surgery
DX: I70.262 Atherosclerosis of native arteries of extremities with gangrene, left leg (principal); I10 Essential (primary) hypertension; I83.90 Asymptomatic varicose veins of unspecified lower extremity; F17.210 Nicotine dependence, cigarettes, uncomplicated; Z95.820 Peripheral vascular angioplasty status with implants and grafts; Z95.828 Presence of other vascular implants and grafts; Z86.718 Personal history of other venous thrombosis and embolism; Z79.899 Other long term (current) drug therapy; Z79.02 Long term (current) use of antithrombotics/antiplatelets; Z79.82 Long term (current) use of aspirin
CPT/HCPCS: 28810 ×2; J2250; J1100; J2175; J0690; J2405; J2001; J3010; J1170 ×2; J1885; J2704

== ENCOUNTER 2023-10-04 15:29 | Inpatient (IN) | payer BC ==
[2023-10-04 16:32] LABS: Basophils # (A) 0.1 k/uL (0-0.2); Basophils % (A) 0 %; Eosinophils # (A) 0.3 k/uL (0-0.7); Eosinophils % (A) 2 %; HCT 54.2 % (39.0-53.0); Lymphocytes # (A) 1.5 k/uL (1.0-4.8); Lymphocytes % (A) 9 %; MCH 31.7 pg (25.0-35.0); MCHC 33.2 g/dL (31.0-37.0); MCV 95.5 fL (80.0-100.0); Mean Platelet Volume 8.7; Monocytes % (A) 6 %; Neutrophils # (A) 14.3 k/uL (1.3-7.7); Neutrophils % (A) 83 %; Platelet Count 293 k/uL (150-450); RBC 5.67 m/uL (4.30-5.90); RDW 13.5 % (11.5-15.5); WBC 17.4 k/uL (3.8-10.6)
[2023-10-04] MEDS: SODIUM CHLORIDE 0.9% 500 ML 500 ML IV ONE (16:37)
--- NOTE | 2023-10-04 16:42 | ED ---
General Adult HPI - General Chief complaint: Extremity Problem,Nontraumatic Stated complaint: L Leg circulation issues Time Seen by Provider: 10/04/23 15:40 Source: patient, RN notes reviewed, old records reviewed Mode of arrival: ambulatory Limitations: no limitations - History of Present Illness Initial comments: This is a 58-year-old male who presents to the emergency department from Dr. Peter's office. Patient comes in because over the last few days he has noticed his left foot is increased and pain has become cooler and because of this he went and saw Dr. Peter production Was concerned that maybe he had clotted off another vessel on the leg. Patient has history of smoking continues to smoke. Patient is also had angioplasty of that leg by Dr. Peter in the past. Patient denies any pain above the ankle patient is any injury or trauma. - Related Data Home Medications Medication Instructions Recorded Confirmed Multivitamins, Thera [Multivitamin 1 tab PO DAILY 07/25/20 10/04/23 (formulary)] Atorvastatin [Lipitor] 80 mg PO HS 08/11/20 10/04/23 Aspirin 81 mg PO DAILY 07/31/21 10/04/23 lisinopriL [Zestril] 5 mg PO DAILY 10/04/23 10/04/23 Previous Rx's Medication Instructions Recorded Clopidogrel [Plavix] 75 mg PO DAILY #90 tab 08/14/20 Allergies Allergy/AdvReac Type Severity Reaction Status Date / Time No Known Allergies Allergy Verified 10/04/23 16:27 Review of Systems ROS Statement: Those systems with pertinent positive or pertinent negative responses have been documented in the HPI. ROS Other: All systems not noted in ROS Statement are negative. Past Medical History Past Medical History: Deep Vein Thrombosis (DVT), Vascular Disorder Additional Past Medical History / Comment(s): ulcerative wound on left foot, varicose veins, left inguinal hernia, DVT after needing a cast History of Any Multi-Drug Resistant Organisms: None Reported Additional Past Surgical History / Comment(s): Vein stripped left leg, angiogram, stents left calf Past Anesthesia/Blood Transfusion Reactions: No Reported Reaction Past Psychological History: No Psychological Hx Reported Smoking Status: Current some day smoker - Past Family History Father Family Medical History: Deep Vein Thrombosis (DVT) Sister(s) Family Medical History: Deep Vein Thrombosis (DVT) General Exam - General Exam Comments Initial Comments: GENERAL: Patient is well-developed and well-nourished. Patient is nontoxic and well- hydrated and is in mild distress. ENT: Neck is soft and supple. No significant lymphadenopathy is noted. Oropharynx is clear. Moist mucous membranes. Neck has full range of motion without eliciting any pain. EYES: The sclera were anicteric and conjunctiva were pink and moist. Extraocular movements were intact and pupils were equal round and reactive to light. Eyelids were unremarkable. PULMONARY: Unlabored respirations. Good breath sounds bilaterally. No audible rales rhonchi or wheezing was noted. CARDIOVASCULAR: There is a regular rate and rhythm without any murmurs gallops or rubs. ABDOMEN: Soft and nontender with normal bowel sounds. SKIN: Skin is clear with no lesions or rashes and otherwise unremarkable. NEUROLOGIC: Patient is alert and oriented x3. Cranial nerves II through XII are grossly intact. Motor and sensory are also intact. Normal speech, volume and content. Symmetrical smile. MUSCULOSKELETAL: I am unable to get any dorsalis pedis pulses or posterior tibial pulses on the left leg. Patient's left foot is cold but there is some very slow cap refill. The foot itself is more erythematous than the right foot LYMPHATICS: No significant lymphadenopathy is noted PSYCHIATRIC: Normal psychiatric evaluation. Limitations: no limitations Course Vital Signs 10/04/23 10/04/23 15:31 16:33 Temperature 98.1 F Pulse Rate 117 H 109 H Respiratory 18 18 Rate Blood Pressure 149/88 121/78 O2 Sat by Pulse 97 99 Oximetry Medical Decision Making - Medical Decision Making Patient's EKG is interpreted by myself. EKG shows a sinus tachycardia with frequent PVCs at 108 bpm SC interval 131 QRS is 86 QT interval 323 QTc is 387. Patient's EKG shows no ST segment elevation or depression. Was pt. sent in by a medical professional or institution (, PA, MUSIC PRODUCER, urgent care, hospital, or penitentiary...) When possible be specific @ -I spoke with Dr. Peter prior to the patient arrival and once the patient's lab results were back. He sent the patient to the emergency department. Did you speak to anyone other than the patient for history (EMS, parent, family, police, friend...)? What history was obtained from this source @ -Dr. Peter gave all of the pertinent past medical history. Did you review nursing and triage notes (agree or disagree)? Why? @ -I reviewed and agree with nursing and triage notes Were old charts reviewed (outside hosp., previous admission, EMS record, old EKG, old radiological studies, urgent care reports/EKG's, penitentiary records)? Report findings @ -No old charts were reviewed Differential Diagnosis (chest pain, altered mental status, abdominal pain women, abdominal pain men, vaginal bleeding, weakness, fever, dyspnea, syncope, headache, dizziness, GI bleed, back pain, seizure, CVA, palpatations, mental health, musculoskeletal)? @ -Arterial occlusion, DVT, cellulitis, this is not an all-inclusive list EKG interpreted by me (3pts min.). @ -As above X-rays interpreted by me (1pt min.). @ -None done CT interpreted by me (1pt min.). @ -CT angio of the bilateral extremity showed a superficial femoral artery occlusion on the left. U/S interpreted by me (1pt. min.). @ -None done What testing was considered but not performed or refused? (CT, X-rays, U/S, labs)? Why? @ -None What meds were considered but not given or refused? Why? @ -None Did you discuss the management of the patient with other professionals (professionals i.e. , PA, MUSIC PRODUCER, lab, RT, psych nurse, director of social services, middle school math teacher, teacher, surveillance dual rate officer, case planner)? Give summary @ -No Was smoking cessation discussed for >3mins.? @ -No Was critical care preformed (if so, how long)? @ -35 minutes Were there social determinants of health that impacted care today? How? (Homelessness, low income, unemployed, alcoholism, drug addiction, transportation, low edu. Level, literacy, decrease access to med. care, senior care, rehab)? @ -No Was there de-escalation of care discussed even if they declined (Discuss DNR or withdrawal of care, Hospice)? DNR status @ -No What co-morbidities impacted this encounter? (DM, HTN, Smoking, COPD, CAD, Cancer, CVA, ARF, Chemo, Hep., AIDS, mental health diagnosis, sleep apnea, morbid obesity)? @ -None Was patient admitted / discharged? Hospital course, mention meds given and route, prescriptions, significant lab abnormalities, going to OR and other pertinent info. @ -Patient had a superficial femoral artery occlusion I started the patient on heparin spoke with Dr. Peter he was in agreement to consult on the patient. I spoke with Dr. Wallace he wanted to admit the patient I admitted the patient wrote admitting orders and consult with Dr. Peter. Undiagnosed new problem with uncertain prognosis? @ -No Drug Therapy requiring intensive monitoring for toxicity (Heparin, Nitro, Insulin, Cardizem)? @ -No Were any procedures done? @ -No Diagnosis/symptom? @ -Superficial femoral artery occlusion Acute, or Chronic, or Acute on Chronic? @ -Acute Uncomplicated (without systemic symptoms) or Complicated (systemic symptoms)? @ -Complicated Side effects of treatment? @ -No Exacerbation, Progression, or Severe Exacerbation? @ -No Poses a threat to life or bodily function? How? (Chest pain, [place], [place], pneumonia, PE, COPD, DKA, ARF, appy, cholecystitis, CVA, Diverticulitis, Homicidal, Suicidal, threat to staff... and all critical care pts) @ -Yes this could lead to necrosis and eventually sepsis and endorgan dysfunction - Lab Data Result diagrams: 10/04/23 16:23 10/04/23 16:23 Lab Results 10/04/23 10/04/23 Range/Units 16:23 16:23 WBC 17.4 H (3.8-10.6) k/uL RBC 5.67 (4.30-5.90) m/uL Hgb 18.0 H (13.0-17.5) gm/dL Hct 54.2 H (39.0-53.0) % MCV 95.5 (80.0-100.0) fL MCH 31.7 (25.0-35.0) pg MCHC 33.2 (31.0-37.0) g/dL RDW 13.5 (11.5-15.5) % Plt Count 293 (150-450) k/uL MPV 8.7 Neutrophils % 83 % Lymphocytes % 9 % Monocytes % 6 % Eosinophils % 2 % Basophils % 0 % Neutrophils # 14.3 H (1.3-7.7) k/uL Lymphocytes # 1.5 (1.0-4.8) k/uL Monocytes # 1.0 (0-1.0) k/uL Eosinophils # 0.3 (0-0.7) k/uL Basophils # 0.1 (0-0.2) k/uL Sodium 138 (137-145) mmol/L Potassium 4.2 (3.5-5.1) mmol/L Chloride 109 H (98-107) mmol/L Carbon Dioxide 22 (22-30) mmol/L Anion Gap 7 mmol/L BUN 11 (9-20) mg/dL Creatinine 0.77 (0.66-1.25) mg/dL Est GFR (CKD-EPI)AfAm >90 (>60 ml/min/1.73 sqM) Est GFR (CKD-EPI)NonAf >90 (>60 ml/min/1.73 sqM) Glucose 100 H (74-99) mg/dL Calcium 9.3 (8.4-10.2) mg/dL Total Bilirubin 1.2 (0.2-1.3) mg/dL AST 33 (17-59) U/L ALT 29 (4-49) U/L Alkaline Phosphatase 87 (38-126) U/L Total Protein 7.2 (6.3-8.2) g/dL Albumin 4.3 (3.5-5.0) g/dL Disposition Clinical Impression: Superficial femoral artery occlusion Disposition: ADMITTED IP TO THIS HOSP Referrals: Yandel Bhardwaj MD [Primary Care Provider] - 1-2 days Time of Disposition: 19:12
[2023-10-04 16:43] LABS: ALT 29 U/L (4-49); AST 33 U/L (17-59); African American GFR (CKD) >90 (>60 ml/min/1.73 sqM); Albumin 4.3 g/dL (3.5-5.0); Alkaline Phosphatase 87 U/L (38-126); Anion Gap 7 mmol/L; Blood Urea Nitrogen 11 mg/dL (9-20); Calcium 9.3 mg/dL (8.4-10.2); Carbon Dioxide 22 mmol/L (22-30); Chloride 109 mmol/L (98-107); Glucose 100 mg/dL (74-99); Non-African American GFR(CKD) >90 (>60 ml/min/1.73 sqM); Potassium 4.2 mmol/L (3.5-5.1); Sodium 138 mmol/L (137-145); Total Bilirubin 1.2 mg/dL (0.2-1.3); Total Protein 7.2 g/dL (6.3-8.2)
--- NOTE | 2023-10-04 18:08 | CT ---
EXAMINATION TYPE: CT angio lower extremity BILAT CT DLP: 1871.3 mGycm, Automated exposure control for dose reduction was used. DATE OF EXAM: 10/04/2023 5:33 PM COMPARISON: None CLINICAL INDICATION:Male, 58 years old with history of Cold left leg; PHH, cold left leg with discolo ration, hx of stent TECHNIQUE: Multiple thin slice sub-millimeter images were obtained after administration of contrast. 3-D reconstructed images and maximum intensity projection images were obtained. CT angio lower extre mity BILAT CT Contrast: Contrast used:100ml mL of Isovue 370 with IV Contrast, Oral contrast used: None FINDINGS: CTA Abdomen and pelvis: The abdominal aorta does not demonstrate aneurysmal dilatation. Atherosclero tic plaquing is identified within the abdominal aorta. The common iliac and external iliac arteries a re patent. CTA Lower extremities: Right: The common femoral and superficial femoral arteries are patent. The popliteal artery is patent . There is poor visualization of the anterior tibial artery as it crosses the ankle with a diminutive appearance. The posterior tibial artery crosses the ankle. Left: There is dilation of the left common femoral artery with suspected mural thrombus series 411 im age 130. There is occlusion of the superficial femoral artery extending just past its origin to a malvin nt graft distally without definitive reconstitution. There is poor visualization of the remainder of the left lower extremity leg. LOWER CHEST: No evidence of focal consolidation, pneumothorax or pleural effusion. LIVER: Unremarkable GALLBLADDER AND BILE DUCTS: Unremarkable. PANCREAS: Unremarkable. SPLEEN: Unremarkable. ADRENAL GLANDS: Unremarkable. KIDNEYS AND URETERS: No evidence of hydronephrosis or renal calculus. The ureters are unremarkable. PELVIS BLADDER: Circumferential wall thickening of the urinary bladder wall. REPRODUCTIVE: Unremarkable. ABDOMEN & PELVIS STOMACH AND BOWEL: No evidence of bowel obstruction. PERITONEUM: No evidence of pneumoperitoneum or free fluid. VASCULATURE: No evidence of aortic aneurysm. MUSCULOSKELETAL: No acute osseous abnormalities LYMPH NODES: No gross evidence for lymphadenopathy. SOFT TISSUE/ABDOMINAL WALL: Fat-containing inguinal hernias. Scattered colonic diverticula. IMPRESSION 1. Occlusion of the left lower extremity superficial femoral artery extending from its origin throug h the remainder of the superficial femoral artery distally where there is a stent graft that is occlu ded. There is Poor visualization of the remainder of the vessels throughout the left lower extremity. 2. Right lower extremity vessels appear patent with posterior tibial artery crossing the ankle. The right anterior tibial artery is poorly visualized as a cross the ankle. Findings communicated to Dr. Vishal West MD on 10/04/2023 6:[address] uJan Bell.
[2023-10-04] MEDS: HYDROmorphone 0.5 MG/0.5 ML SYRINGE IVP STA (18:45)
[2023-10-04] MEDS: HEPARIN SODIUM 1,000 UN/ML (10ML VL) IV ONE (18:51)
[2023-10-04] MEDS: HEPARIN SOD,PORK IN 0.45% NACL 25,000 UNIT in 0.45% NACL 1 250ML.BAG IV SCH (18:53)
[2023-10-04 19:36] LABS: INR 1.1 (<1.2); Prothrombin Time 12.3 sec (10.0-12.5)
[2023-10-04 20:13] LABS: Partial Thromboplastin Time >200.0 sec (22.0-30.0)
[2023-10-04] MEDS: SODIUM CHLORIDE 0.9% 1,000 ML IV ONE (20:33)
[2023-10-04] MEDS: ATORVASTATIN 80 MG TAB PO SCH (21:57)
[2023-10-04] MEDS: MORPHINE SULFATE 2 MG/ML SYRINGE IVP STA (23:12)
--- NOTE | 2023-10-05 00:59 | P.HPIM ---
History of Present Illness H&P Date: 10/04/23 Patient is a 58-year-old male with a PMH of hypertension, hyperlipidemia, and peripheral artery disease status post left lower extremity stenting and multiple left toe amputations, and tobacco abuse who was sent to the emergency room by Dr. Peter'eva for left lower extremity pain. The patient reports that over the past 3 to 4 days, he has noticed gradually worsening pain of his left foot. He was subsequently seen in Dr. Peter's office earlier today who advised the patient to come to the emergency room. The case was discussed with Dr. Peter via phone in detail. The patient reports that his pain has improved since arrival at the emergency room, currently rated at a 3 out of 10. He also reports that his left foot feels cool to the touch. Denies experiencing numbness or tingling. Also denied experiencing chest discomfort, shortness of breath, fever, chills, cough. CT angiogram of lower extremities bilaterally revealed an occlusion of the left SFA from its origin through to the stent graft which is occluded. EKG revealed sinus tachycardia with PVCs at 108 bpm with T wave flattening in leads V5 and V6. Laboratory evaluation was remarkable for WBC count 17.4, hemoglobin 18.0, sodium 138, chloride 109, BUN 11, creatinine 0.77. ED documentation reviewed and case discussed with ED provider. Review of systems: Pertinent positives and negatives as discussed in HPI, a complete review of systems was performed and all other systems are negative. Physical examination: Vital signs reviewed General: non toxic, no distress, appears at stated age, normal weight Derm: Left foot tenderness from ankle distally to the toes, left toes and distal midfoot is cold to touch without pallor Head: atraumatic, normocephalic, symmetric Eyes: EOMI, no lid lag, anicteric sclera, pupils equal round reactive to light ENT: Nose and ears atraumatic Neck: No cervical lymphadenopathy, trachea midline, supple Mouth: no lip lesion, mucus membranes moist Cardiovascular: S1S2 reg, no murmur, no edema, unable to palpate dorsalis pedis or posterior tibial pulses on the LLE Lungs: CTA bilateral, no rhonchi, no rales, no accessory muscle use Abdominal: soft, nontender to palpation, no guarding Ext: muscle strength 5 out of 5 in all 4 extremities grossly, no gross muscle atrophy, no contractures, Neuro: CN II-XI grossly intact, no gross focal neuro deficits Psych: Alert, oriented, appropriate affect Assessment: Left superficial femoral artery occlusion Chronic conditions: Hypertension, hyperlipidemia, tobacco abuse Imaging: CT angiogram of lower extremities bilaterally revealed an occlusion of the left SFA from its origin through to the stent graft which is occluded. EKG revealed sinus tachycardia with PVCs at 108 bpm with T wave flattening in leads V5 and V6. Data Review: Laboratory evaluation was remarkable for WBC count 17.4, hemoglobin 18.0, sodium 138, chloride 109, BUN 11, creatinine 0.77. Plan: Continue with heparin infusion IV fluids with normal saline 75 cc/h Continue with home aspirin, Lipitor and Plavix DVT prophylaxis: Heparin infusion The patient is admitted with an anticipated greater than 2 midnight stay for evaluation of LLE occlusion CODE STATUS: Full Code Discussed with: Patient Anticipated discharge place: Home Past Medical History Past Medical History: Deep Vein Thrombosis (DVT), Vascular Disorder Additional Past Medical History / Comment(s): ulcerative wound on left foot, varicose veins, left inguinal hernia, DVT after needing a cast History of Any Multi-Drug Resistant Organisms: None Reported Additional Past Surgical History / Comment(s): Vein stripped left leg, angiogram, stents left calf Past Anesthesia/Blood Transfusion Reactions: No Reported Reaction Past Psychological History: No Psychological Hx Reported Smoking Status: Current some day smoker Past Alcohol Use History: Occasional Additional Past Alcohol Use History / Comment(s): trying to quit-now smokes only occ. Past Drug Use History: None Reported - Past Family History Father Family Medical History: Deep Vein Thrombosis (DVT) Sister(s) Family Medical History: Deep Vein Thrombosis (DVT) Medications and Allergies Home Medications Medication Instructions Recorded Confirmed Type Multivitamins, Thera [Multivitamin 1 tab PO DAILY 07/25/20 10/04/23 History (formulary)] Atorvastatin [Lipitor] 80 mg PO HS 08/11/20 10/04/23 History Clopidogrel [Plavix] 75 mg PO DAILY #90 tab 08/14/20 10/04/23 Rx Aspirin 81 mg PO DAILY 07/31/21 10/04/23 History lisinopriL [Zestril] 5 mg PO DAILY 10/04/23 10/04/23 History Allergies Allergy/AdvReac Type Severity Reaction Status Date / Time No Known Allergies Allergy Verified 10/04/23 16:27 Physical Exam Vitals: Vital Signs Temp Pulse Pulse Resp BP BP Pulse Ox 10/04/23 22:00 98.7 F 103 H 18 130/90 98 10/04/23 16:33 109 H 18 121/78 99 10/04/23 15:31 98.1 F 117 H 18 149/88 97 Intake and Output 10/04/23 10/04/23 10/04/23 06:59 14:59 22:59 Intake Total 46.635 Balance 46.635 Intake: Intake, IV Titration 46.635 Amount Heparin Sod,Pork in 0.45% 46.635 NaCl 25,000 unit In 0.45 % NaCl 1 250ml.bag @ 18 UNITS/KG/HR 18.779 mls/hr IV .[id number] [facility] Rx#: [id number] Other: Weight 104.326 kg Results CBC & Chem 7: 10/04/23 16:23 10/04/23 16:23 Labs: Abnormal Lab Results - Last 24 Hours (Table) 10/04/23 10/04/23 10/04/23 Range/Units 16:23 16:23 18:59 WBC 17.4 H (3.8-10.6) k/uL Hgb 18.0 H (13.0-17.5) gm/dL Hct 54.2 H (39.0-53.0) % Neutrophils # 14.3 H (1.3-7.7) k/uL APTT >200.0 H* (22.0-30.0) sec Chloride 109 H (98-107) mmol/L Glucose 100 H (74-99) mg/dL
[2023-10-05] MEDS: MORPHINE SULFATE 2 MG/ML SYRINGE IVP STA (05:16)
[2023-10-05 07:04] LABS: HCT 46.5 % (39.0-53.0); HGB 15.2 gm/dL (13.0-17.5); MCH 31.8 pg (25.0-35.0); MCHC 32.7 g/dL (31.0-37.0); MCV 97.2 fL (80.0-100.0); Mean Platelet Volume 8.7; Platelet Count 263 k/uL (150-450); RBC 4.78 m/uL (4.30-5.90); RDW 13.3 % (11.5-15.5); WBC 16.2 k/uL (3.8-10.6)
[2023-10-05 07:29] LABS: African American GFR (CKD) >90 (>60 ml/min/1.73 sqM); Anion Gap 6 mmol/L; Blood Urea Nitrogen 11 mg/dL (9-20); Calcium 8.6 mg/dL (8.4-10.2); Carbon Dioxide 21 mmol/L (22-30); Chloride 110 mmol/L (98-107); Glucose 102 mg/dL (74-99); Non-African American GFR(CKD) >90 (>60 ml/min/1.73 sqM); Potassium 3.8 mmol/L (3.5-5.1); Sodium 137 mmol/L (137-145)
[2023-10-05] MEDS: HEPARIN SODIUM 1,000 UN/ML (10ML VL) IV PRN (07:52)
[2023-10-05] MEDS: ASPIRIN 81 MG PO SCH (08:02)
[2023-10-05] MEDS: lisinopriL 5 MG TAB PO SCH (08:02)
[2023-10-05] MEDS: CLOPIDOGREL 75 MG TAB PO SCH (08:02)
--- NOTE | 2023-10-05 10:30 | P.PN ---
Subjective Progress Note Date: 10/05/23 58-year-old male with a PMH of hypertension, hyperlipidemia, and peripheral artery disease status post left lower extremity stenting and multiple left toe amputations, and tobacco abuse who was sent to the emergency room by Dr. Peter'eva for left lower extremity pain. The patient reports that over the past 3 to 4 days, he has noticed gradually worsening pain of his left foot. He was subsequently seen in Dr. Peter's office earlier today who advised the patient to come to the emergency room. The patient reports that his pain has improved since arrival at the emergency room, currently rated at a 3 out of 10. He also reports that his left foot feels cool to the touch. CT angiogram of lower extremities bilaterally revealed an occlusion of the left SFA from its origin through to the stent graft which is occluded. EKG revealed sinus tachycardia with PVCs at 108 bpm with T wave flattening in leads V5 and V6. Laboratory evaluation was remarkable for WBC count 17.4, hemoglobin 18.0, sodium 138, chloride 109, BUN 11, creatinine 0.77. Started on heparin drip and admitted for evaluation by Dr. Alonso. 10/04 Patient was seen and examined. LLE pain 12/06. Maintained on heparin drip. CBC WBC 16.2. APTT 43. BMP Cl 110, bicarb 21, glu 102. General: non toxic, no distress, appears at stated age Derm: warm, dry Head: atraumatic, normocephalic, symmetric Eyes: EOMI, no lid lag, anicteric sclera Mouth: no lip lesion, mucus membranes moist Cardiovascular: S1S2 reg, no murmur Lungs: CTA bilateral, no rhonchi, no rales , no accessory muscle use Ext: no gross muscle atrophy, no edema, no contractures Neuro: no focal neuro deficits Psych: Alert, oriented, appropriate affect Unable to palpate DP and tibial pulses LLE. Left superficial femoral artery occlusion: Maintain heparin drip. Monitor coag p ezekiel while on heparin. ASA 81 mg PO QD. Plavix 75 mg PO QD. Lipitor 80 mg PO QD. Cardiology consulted. Leukocytosis: With neutrophilia. No signs of active infection. Monitor fever profile. Repeat CBC. Polycythemia: History of smoking. Repeat CBC. Hypertension: Lisinopril 5 mg PO QD. Hyperlipidemia: Lipitor as above. Tobacco abuse: Nicotine patch offered. CODE STATUS: FULL CODE DVT Prophylaxis: Heparin drip GI Prophylaxis: Designated medical POA if patient is not able to make medical decisions for themselves: I have reviewed the following business systems consultant notes: I have reviewed the results of the following tests: CBC, BMP, Coag panel I have ordered the following tests: Coag panel while on heparin. I have discussed the care of this patient with the following independent historian: I have independently interpreted the following test below: I have discussed the management of this patient with the following physician: Objective - Vital Signs Vital signs: Vital Signs Temp 97.9 F 10/05/23 04:00 Pulse 85 10/05/23 04:00 Resp 16 10/05/23 04:00 BP 124/87 10/05/23 04:00 Pulse Ox 99 10/05/23 04:00 FiO2 Intake & Output 10/04/23 10/04/23 10/05/23 06:59 18:59 06:59 Intake Total 46.635 Balance 46.635 Weight 104.326 kg 104.326 kg Intake: Intake, IV Titration 46.635 Amount Heparin Sod,Pork in 0.45% 46.635 NaCl 25,000 unit In 0.45 % NaCl 1 250ml.bag @ 18 UNITS/KG/HR 18.779 mls/hr IV .[id number] [facility] Rx#: [id number] Other: Voiding Method Urinal - Labs CBC & Chem 7: 10/05/23 06:28 10/05/23 06:28 Labs: Abnormal Lab Results - Last 24 Hours (Table) 10/04/23 10/04/23 10/04/23 Range/Units 16:23 16:23 18:59 WBC 17.4 H (3.8-10.6) k/uL Hgb 18.0 H (13.0-17.5) gm/dL Hct 54.2 H (39.0-53.0) % Neutrophils # 14.3 H (1.3-7.7) k/uL APTT >200.0 H* (22.0-30.0) sec Chloride 109 H (98-107) mmol/L Glucose 100 H (74-99) mg/dL
[2023-10-05] MEDS: HYDROmorphone 1 MG/ML 1 ML SYRINGE IVP PRN ×3 (11:14→21:13)
[2023-10-05] MEDS: SODIUM CHLORIDE 0.9% 1,000 ML IV SCH (11:15)
--- NOTE | 2023-10-05 11:37 | P.CRDCN ---
History of Present Illness Consult date: 10/05/23 Reason for Consult (text): Superficial femoral artery occlusion History of present illness: History of present illness: This is a 58-year-old male patient of Dr. Peter with past medical history of peripheral artery disease with prior angioplasty of the left SFA, history of left common femoral endarterectomy and subsequent amputation of the left second and third toes, hypertension, dyslipidemia, tobacco use and dependence. Gives history that as of last he was working on his tractor and when he was done he noticed that his left foot started to hurt and continued to ache all weekend. He had an appointment yesterday with Dr. Peter and he was found to have coolness to the left foot, dorsalis pedis, posterior tibial, and popliteal pulses were unable to be obtained. Patient was sent directly to the emergency center for CTA. Patient was found to have occlusion of the left lower extremity superficial femoral artery and started on heparin drip. Plan is for patient to go for thrombectomy and possible tPA infusion. Patient is agreeable to move forward with this. Patient is an active smoker. EKG sinus rhythm with occasional PVC, nonspecific T wave change Lower extremity CTA bilaterally revealed occlusion of the left lower extremity superficial femoral artery extending from its origin through the remainder of the superficial femoral artery distally where there is a stent graft that is occluded. Right lower extremity vessels appear patent with posterior tibial artery crossing the ankle. The right anterior tibial artery is poorly visualized at the ankle. WBC 16.2, hemoglobin 15.2. Sodium 137, potassium 3.8, creatinine 0.73. Home cardiac medications: Aspirin 81 mg daily, atorvastatin 80 mg at bedtime, Plavix 75 mg daily, lisinopril 5 mg daily. Review Of Systems: At the time of my exam: CONSTITUTIONAL: Denies fever or chills. HEENT: Denies blurred vision, vision changes, or eye pain. Denies hemoptysis CARDIOVASCULAR: Denies chest pain. Denies orthopnea. Denies PND. Denies palpitations RESPIRATORY: Denies shortness of breath. GASTROINTESTINAL: Denies abdominal pain. Denies nausea or vomiting. HEMATOLOGIC: Denies bleeding disorders. GENITOURINARY: Denies any blood in urine. SKIN: Denies pruitis. Denies rash. Physical examination: Gen: This is a 58-year-old male in no acute distress. VS: reviewed, blood pressure 141/83, heart rate 76, pulse ox 97% on room air. HEENT: Head is atraumatic, normocephalic. Pupils equal, round. Sclerae is anicteric. NECK: Supple. No JVD. LUNGS: Clear to auscultation. No wheezes or rhonchi. No intercostal retractions. HEART: Regular rate and rhythm. No murmur. ABDOMEN: Soft No tenderness. EXTREMITIES: No pedal edema. No calf tenderness. NEUROLOGICAL: Patient is awake, alert and oriented x3. Assessment: Left superficial femoral artery occlusion Peripheral vascular disease with previous angioplasty of the left SFA and endarterectomy of the left common femoral artery Hypertension Dyslipidemia Active tobacco use and dependence Plan: Resume patient's home cardiac medications Continue heparin drip Patient will be scheduled for thrombectomy and possible tPA infusion today with Dr. Peter. Further recommendations to follow based upon clinical course Thank you kindly for this consultation. Nurse practitioner note has been reviewed, I agree with documented findings and plan of care. Patient was seen and examined. Past Medical History Past Medical History: Deep Vein Thrombosis (DVT), Vascular Disorder Additional Past Medical History / Comment(s): ulcerative wound on left foot, varicose veins, left inguinal hernia, DVT after needing a cast History of Any Multi-Drug Resistant Organisms: None Reported Additional Past Surgical History / Comment(s): Vein stripped left leg, angiogram, stents left calf Past Anesthesia/Blood Transfusion Reactions: No Reported Reaction Past Psychological History: No Psychological Hx Reported Smoking Status: Current some day smoker Past Alcohol Use History: Occasional Additional Past Alcohol Use History / Comment(s): trying to quit-now smokes only occ. Past Drug Use History: None Reported - Past Family History Father Family Medical History: Deep Vein Thrombosis (DVT) Sister(s) Family Medical History: Deep Vein Thrombosis (DVT) Medications and Allergies Home Medications Medication Instructions Recorded Confirmed Type Multivitamins, Thera [Multivitamin 1 tab PO DAILY 07/25/20 10/04/23 History (formulary)] Atorvastatin [Lipitor] 80 mg PO HS 08/11/20 10/04/23 History Clopidogrel [Plavix] 75 mg PO DAILY #90 tab 08/14/20 10/04/23 Rx Aspirin 81 mg PO DAILY 07/31/21 10/04/23 History lisinopriL [Zestril] 5 mg PO DAILY 10/04/23 10/04/23 History Allergies Allergy/AdvReac Type Severity Reaction Status Date / Time No Known Allergies Allergy Verified 10/04/23 16:27 Physical Exam Vitals: Vital Signs Temp Pulse Pulse Resp BP BP Pulse Ox 10/05/23 08:00 98.2 F 76 18 141/83 97 10/05/23 04:00 97.9 F 85 16 124/87 99 10/05/23 00:00 98.2 F 85 12 106/71 98 10/04/23 22:00 98.7 F 103 H 18 130/90 98 10/04/23 16:33 109 H 18 121/78 99 10/04/23 15:31 98.1 F 117 H 18 149/88 97 Intake and Output 10/04/23 10/05/23 10/05/23 22:59 06:59 14:59 Intake Total 46.635 0 185.216 Balance 46.635 0 185.216 Intake: Intake, IV Titration 46.635 0 185.216 Amount Heparin Sod,Pork in 0.45% 46.635 0 185.216 NaCl 25,000 unit In 0.45 % NaCl 1 250ml.bag @ 18 UNITS/KG/HR 18.779 mls/hr IV .[id number] [facility] Rx#: [id number] Other: Voiding Method Urinal Weight 104.326 kg Results 10/05/23 06:28 10/05/23 06:28 Cardiac Enzymes 10/04/23 Range/Units 16:23 AST 33 (17-59) U/L Coagulation 10/04/23 10/04/23 10/05/23 Range/Units 18:59 23:01 06:28 PT 12.3 (10.0-12.5) sec APTT >200.0 H* 26.9 43.0 H (22.0-30.0) sec CBC 10/04/23 10/05/23 Range/Units 16:23 06:28 WBC 17.4 H 16.2 H (3.8-10.6) k/uL RBC 5.67 4.78 (4.30-5.90) m/uL Hgb 18.0 H 15.2 (13.0-17.5) gm/dL Hct 54.2 H 46.5 (39.0-53.0) % Plt Count 293 263 (150-450) k/uL Comprehensive Metabolic Panel 10/04/23 10/05/23 Range/Units 16:23 06:28 Sodium 138 137 (137-145) mmol/L Potassium 4.2 3.8 (3.5-5.1) mmol/L Chloride 109 H 110 H (98-107) mmol/L Carbon Dioxide 22 21 L (22-30) mmol/L BUN 11 11 (9-20) mg/dL Creatinine 0.77 0.73 (0.66-1.25) mg/dL Glucose 100 H 102 H (74-99) mg/dL Calcium 9.3 8.6 (8.4-10.2) mg/dL AST 33 (17-59) U/L ALT 29 (4-49) U/L Alkaline Phosphatase 87 (38-126) U/L Total Protein 7.2 (6.3-8.2) g/dL Albumin 4.3 (3.5-5.0) g/dL Current Medications Generic Name Dose Route Start Last Admin Trade Name Freq PRN Reason Stop Dose Admin Aspirin 81 mg 10/05/23 09:00 10/05/23 08:02 Aspirin 81 Mg PO 81 mg DAILY [facility] Administration Atorvastatin Calcium 80 mg 10/04/23 21:00 10/04/23 21:57 Atorvastatin 80 Mg Tab PO 80 mg HS [facility] Administration Clopidogrel Bisulfate 75 mg 10/05/23 09:00 10/05/23 08:02 Clopidogrel 75 Mg Tab PO 75 mg DAILY [facility] Administration Heparin Sodium (Porcine) 0 unit 10/05/23 07:43 10/05/23 07:52 Heparin Sodium 1,000 Un/Ml (10ml Vl) IV 4,160 unit PER PROTOCOL PRN Administration Low PTT Protocol Heparin Sodium/Sodium Chloride 250 mls @ 18.779 mls/hr 10/04/23 18:30 10/05/23 09:21 25,000 unit/ Sodium Chloride IV 20 units/kg/hr .[id number] [facility]ER[facility] 20.865 mls/hr Administration Protocol 18 UNITS/KG/HR Lisinopril 5 mg 10/05/23 09:00 10/05/23 08:02 Lisinopril 5 Mg Tab PO 5 mg DAILY DERICK Administration Intake and Output 10/04/23 10/05/23 10/05/23 22:59 06:59 14:59 Intake Total 46.635 0 185.216 Balance 46.635 0 185.216 Intake: Intake, IV Titration 46.635 0 185.216 Amount Heparin Sod,Pork in 0.45% 46.635 0 185.216 NaCl 25,000 unit In 0.45 % NaCl 1 250ml.bag @ 18 UNITS/KG/HR 18.779 mls/hr IV .[id number] [facility] Rx#: [id number] Other: Voiding Method Urinal Weight 104.326 kg 10/05/23 06:28 10/05/23 06:28
[2023-10-05] MEDS ORDERED: fentaNYL (PF) 50 MCG/ML 2 ML AMP ONE (14:09)
[2023-10-05] MEDS ORDERED: HEPARIN SODIUM 1,000 UN/ML (10ML VL) ONE (14:09)
[2023-10-05] MEDS ORDERED: LIDOCAINE 1% INJ 10MG/ML (20 ML MDV) ONE (14:10)
[2023-10-05] MEDS: IV FLUID CONTINUATION 1,000 ML IV ONE (14:20)
[2023-10-05] MEDS: LIDOCAINE 1% INJ 10MG/ML (20 ML MDV) SQ ONE (14:33)
[2023-10-05] MEDS: MIDAZOLAM 2 MG/2 ML VIAL IVP ONE (14:35)
[2023-10-05] MEDS: fentaNYL (PF) 50 MCG/ML 2 ML AMP IVP ONE (14:35)
[2023-10-05] MEDS: HEPARIN SODIUM 1,000 UN/ML (10ML VL) IV ONE (14:52)
[2023-10-05] MEDS: IOPAMIDOL-370 100ML BTL INJ ONE (15:27)
[2023-10-05] MEDS: ALTEPLASE 2 MG VIAL (CATHFLO) IA STA (15:27)
[2023-10-05] MEDS: ALTEPLASE 10 MG in SODIUM CHLORIDE 0.9% 90 ML IA ONE (15:32)
[2023-10-05] MEDS: HEPARIN SOD,PORK IN 0.45% NACL 25,000 UNIT in 0.45% NACL 1 250ML.BAG IV SCH (15:34)
[2023-10-05 15:58] LABS: Glucose,Whole Blood 99 mg/dL (70-110)
[2023-10-05] MEDS: SODIUM CHLORIDE 0.9% 1,000 ML in EMPTY BAG 1 BAG IV SCH (16:00)
[2023-10-05 16:28] LABS: Basophils # (A) 0.1 k/uL (0-0.2); Basophils % (A) 0 %; Eosinophils # (A) 0.2 k/uL (0-0.7); Eosinophils % (A) 1 %; HCT 47.1 % (39.0-53.0); HGB 15.6 gm/dL (13.0-17.5); Lymphocytes # (A) 1.9 k/uL (1.0-4.8); Lymphocytes % (A) 13 %; MCH 32.2 pg (25.0-35.0); MCHC 33.1 g/dL (31.0-37.0); MCV 97.4 fL (80.0-100.0); Mean Platelet Volume 8.9; Monocytes % (A) 7 %; Neutrophils # (A) 11.2 k/uL (1.3-7.7); Neutrophils % (A) 77 %; Platelet Count 247 k/uL (150-450); RBC 4.84 m/uL (4.30-5.90); RDW 13.5 % (11.5-15.5); WBC 14.6 k/uL (3.8-10.6)
[2023-10-05 16:30] LABS: Prothrombin Time 11.4 sec (10.0-12.5)
[2023-10-05 16:43] LABS: African American GFR (CKD) >90 (>60 ml/min/1.73 sqM); Blood Urea Nitrogen 13 mg/dL (9-20); Non-African American GFR(CKD) >90 (>60 ml/min/1.73 sqM)
--- NOTE | 2023-10-05 16:46 | IR ---
EXAMINATION TYPE: IR transcath infusion therapy Intraoperative/procedural fluoroscopic services were provided. CLINICAL INDICATION:Male, 58 years old with history of Lt leg pain, 12.6m/66.7DAP, Rt gr sheath in TPA infusing; , [facility] Total fluoroscopy time is 12.6 min. DAP: 7.7 Gycm2 Please see the operative/procedural note for further details.
[2023-10-05] MEDS ORDERED: NALOXONE 0.4 MG/ML 1 ML VIAL IVP PRN (18:20)
--- NOTE | 2023-10-05 18:27 | P.PCN ---
Date of Procedure: 10/05/23 Operative Findings: Percutaneous peripheral arterial procedure Performing physician Ephraim Peter MD Procedure performed 1. Left lower extremity angiogram 2. Intravascular ultrasound (IVUS) of the left common femoral artery 3. Placement of infusion catheter for tPA in the left popliteal and left SFA 4. Ultrasound-guided access of the right common femoral artery Indication Acute limb ischemia of the left leg with evidence of thrombus involving the left SFA and left popliteal documented by CTA. The patient discomfort started within the last 24 to 48 hours Approach Right common femoral artery Complication None Level of sedation Moderate with sedation length of 14 minutes Procedure description After obtaining informed consent the patient was brought to the cardiac Hogshead Dumper. The right common femoral artery was cannulated using micropuncture technique under ultrasound guidance and the micropuncture wire passed easily then I placed a 7 Green[place]ic 70 cm sheath at the right common femoral artery. That was performed over stiff 035 wire. Subsequently I did select the left profunda using 035 Glidewire with the backup support of 5 Greenlandic rim catheter and subsequently the sheath was advanced over the wire and the catheter to the proximal left common femoral artery. After that I did left lower extremity angiogram with injection through the sheath and that showed poorly visualized arteries below the knee with evidence of occluded left popliteal and occluded left SFA and also haziness involving the left common femoral artery. I did wired the left common femoral artery using [address] wire and the wire was directed toward the left profundus then I did intravascular ultrasound which showed that the haziness involving the left common femoral artery where the patient underwent in the past endarterectomy is not related to any clot but is appears to be atherosclerotic plaque. With that being said I was able to cross the SFA and popliteal on the left side using a 035 stiff Glidewire and the wire was advanced all the way to the left popliteal below the knee with a crossing the occlusion was extremely easy indicating fresh thrombus. Subsequently I did advance 035 catheter over the wire and then I pulled the wire out and injected contrast which showed that I was in the true lumen and at that point I did place the wire again and pulled the catheter out then I placed an infusion catheter preparing to infuse tPA. The catheter was connected to the tPA and tPA was initiated with pharmacy to dose. The procedure was completed with no complication Postprocedure management ICU monitoring tPA infusion Second look in the next 24 to 48 hours Follow-up with the patient
[2023-10-05] MEDS: HYDROmorphone 1 MG/ML 1 ML SYRINGE IVP STA (19:25)
[2023-10-06] MEDS: ALTEPLASE 10 MG in SODIUM CHLORIDE 0.9% 90 ML IA ONE ×2 (08:19→19:10)
[2023-10-06] MEDS: fentaNYL (PF) 50 MCG/ML 2 ML AMP IVP ONE (11:01)
[2023-10-06] MEDS: MIDAZOLAM 2 MG/2 ML VIAL IVP ONE (11:01)
[2023-10-06] MEDS: IV FLUID CONTINUATION 1,000 ML IV ONE (11:06)
--- NOTE | 2023-10-06 11:18 | P.PN ---
Subjective Progress Note Date: 10/06/23 Hospital Course: 58-year-old male with a PMH of hypertension, hyperlipidemia, and peripheral ar fina disease status post left lower extremity stenting and multiple left toe amputations, and tobacco abuse who was sent to the emergency room by Dr. Ramsey for left lower extremity pain. CT angiogram of lower extremities bilaterally revealed an occlusion of the left SFA from its origin through to the stent graft which is occluded. EKG revealed sinus tachycardia with PVCs at 108 bpm with T wave flattening in leads V5 and V6. Laboratory evaluation was remarkable for WBC count 17.4, hemoglobin 18.0, sodium 138, chloride 109, BUN 11, creatinine 0.77. Started on heparin drip. Underwent left lower extremity angiogram, intravascular ultrasound of left common femoral artery, placement of infusion catheter for tPA in the left popliteal and left SFA, plan for second look in the next 24 to 48 hours. Patient currently in medical ICU. Subjective: Seen and examined at bedside. No acute events overnight. Continues to complain about left lower extremity pain. Pertinent positives and negatives as discussed above, a complete review of systems was performed and all other systems are negative. Vitals Signs Reviewed. General: non toxic, no distress, appears at stated age Derm: warm, dry, distal toe discoloration on the left lower extremity Head: atraumatic, normocephalic, symmetric Eyes: EOMI, no lid lag, anicteric sclera Mouth: no lip lesion, mucus membranes moist Cardiovascular: S1S2 reg, no murmur Lungs: CTA bilateral, no rhonchi, no rales , no accessory muscle use Ext: Difficulty palpating DP and TP pulses in the left lower extremity, extremities warm, also has significant left lower extremity edema and tenderness to palpation Neuro: no focal neuro deficits Psych: Alert, oriented, appropriate affect Data Reviewed Today: Pertinent Labs: WBC 14.6, creatinine 0.80, fibrinogen 583, INR 1, APTT 43 Imaging: No new imaging Assessment and Plan: Patient is critically ill, in medical ICU for close monitoring. Has acute limb ischemia. Active: Acute left lower extremity limb ischemia secondary to left superficial femoral artery occlusion Leukocytosis, reactive -Cardiology following -Plan for second look procedure in 24 to 48 hours -On tPA through intravascular catheter, also on heparin drip, monitor APTT and monitor for bleeding -On aspirin 81 mg, atorvastatin 80 mg, Plavix 75 mg -Pain control with IV Dilaudid as needed, monitor for sedation -Repeat CBC and BMP tomorrow Chronic: Hypertension Dyslipidemia Nicotine dependence DVT ppx: Heparin drip Code status: Full code Anticipated discharge place: Pending clinical course Anticipated discharge time: Pending clinical course Objective - Vital Signs Vital signs: Vital Signs Temp 98.2 F 10/06/23 04:00 Pulse 96 10/06/23 07:00 Resp 18 10/06/23 07:00 BP 120/84 10/06/23 07:00 Pulse Ox 93 L 10/06/23 07:00 FiO2 Intake & Output 10/05/23 10/06/23 10/06/23 18:59 06:59 18:59 Intake Total 4835.155 2913 90 Output Total 825 250 Balance 472.283 955 90 Weight 109.2 kg Intake: IV 527 900 75 Sodium Chloride 0.9% 1, 225 900 75 000 ml @ 75 mls/hr IV . [id number] [facility] Rx#:[id number] Intake, IV Titration 770.283 180 15 Amount Alteplase 10 mg In Sodium 30 120 10 Chloride 0.9% 90 ml @ 1 MG/HR 10 mls/hr IA .Q10H [facility] Rx#:[id number] Heparin Sod,Pork in 0.45% 275.283 NaCl 25,000 unit In 0.45 % NaCl 1 250ml.bag @ 18 UNITS/KG/HR 18.779 mls/hr IV .[id number] [facility] Rx#: [id number] Heparin Sod,Pork in 0.45% 15 60 5 NaCl 25,000 unit In 0.45 % NaCl 1 250ml.bag @ 5 mls/hr IV .Q24H [facility] Rx#: [id number] Sodium Chloride 0.9% 1, 450 000 ml @ 75 mls/hr IV . [id number] [facility] Rx#:[id number] Oral 125 Output: Urine 825 250 Other: Voiding Method Urinal Urinal # Bowel Movements 0 0 0 ABP, PAP, CO, CI - Last Documented Arterial Blood Pressure 108/68 - Labs CBC & Chem 7: 10/05/23 16:04 10/05/23 16:04 Labs: Abnormal Lab Results - Last 24 Hours (Table) 10/05/23 10/05/23 Range/Units 16:04 16:04 WBC 14.6 H (3.8-10.6) k/uL Neutrophils # 11.2 H (1.3-7.7) k/uL Fibrinogen 583 H (200-500) mg/dL
[2023-10-06] MEDS ORDERED: NALOXONE 0.4 MG/ML 1 ML VIAL IVP PRN (11:25)
--- NOTE | 2023-10-06 11:30 | P.PCN ---
Date of Procedure: 10/06/23 Operative Findings: Percutaneous peripheral arterial angiogram Performing physician Ephraim Peter MD Procedure performed Recheck (second look) left lower extremity angiogram after tPA infusion Removal of infusion catheter and replacement of infusion catheter for tPA in the left posterior tibial artery Indication Acute limb ischemia of the left lower extremity. Please see previous dictation Approach Right common femoral artery Complication None Level of sedation Moderate with sedation length of 20 minutes Procedure description After obtaining informed consent the patient was brought to the cardiac Transition Advisor. After that I did remove the infusion catheter over 035 wire and left the [address]. Left lower extremity angiogram was performed with injection through the sheath and that showed open left common femoral artery and left SFA and left popliteal with open peroneal artery but occluded distally and occluded anterior tibial and posterior tibial artery. With that being said I decided to leave the infusion catheter for additional 24 hours where the catheter was advanced all the way to the left posterior tibial artery. The procedure was completed with no complication Postprocedure management Continue tPA infusion with pharmacy to dose Continue monitor the kidney function and electrolytes and hemoglobin Continue dual antiplatelet therapy Follow-up with the patient
[2023-10-06] MEDS: IOPAMIDOL-250 100ML BTL INTRAARTER ONE (11:46)
[2023-10-06] MEDS: SODIUM CHLORIDE 0.9% 1,000 ML in EMPTY BAG 1 BAG IV SCH (12:00)
[2023-10-06 12:49] LABS: Basophils # (A) 0.1 k/uL (0-0.2); Basophils % (A) 0 %; Eosinophils # (A) 0.1 k/uL (0-0.7); Eosinophils % (A) 1 %; HCT 49.7 % (39.0-53.0); HGB 15.4 gm/dL (13.0-17.5); Lymphocytes % (A) 6 %; MCH 31.6 pg (25.0-35.0); MCV 101.8 fL (80.0-100.0); Macrocytosis Slight; Mean Platelet Volume 8.8; Monocytes # (A) 1.2 k/uL (0-1.0); Monocytes % (A) 7 %; Neutrophils # (A) 13.7 k/uL (1.3-7.7); Neutrophils % (A) 84 %; Platelet Count 211 k/uL (150-450); RBC 4.88 m/uL (4.30-5.90); RDW 13.2 % (11.5-15.5); WBC 16.3 k/uL (3.8-10.6)
--- NOTE | 2023-10-06 12:49 | IR ---
EXAMINATION TYPE: IR transcath infusion therapy DATE OF EXAM: 10/06/2023 COMPARISON: NONE HISTORY: Fluoroscopy time. Fluoroscopy was provided to the referring clinician.
[2023-10-06 13:08] LABS: African American GFR (CKD) >90 (>60 ml/min/1.73 sqM); Anion Gap 7 mmol/L; Blood Urea Nitrogen 13 mg/dL (9-20); Calcium 8.7 mg/dL (8.4-10.2); Carbon Dioxide 20 mmol/L (22-30); Chloride 109 mmol/L (98-107); Glucose 93 mg/dL (74-99); Non-African American GFR(CKD) >90 (>60 ml/min/1.73 sqM); Sodium 136 mmol/L (137-145)
[2023-10-06 13:09] LABS: Partial Thromboplastin Time 26.6 sec (22.0-30.0)
[2023-10-06 13:11] LABS: Potassium 4.5 mmol/L (3.5-5.1)
[2023-10-06 15:00] LABS: INR 1.1 (<1.2); Prothrombin Time 11.9 sec (10.0-12.5)
--- NOTE | 2023-10-06 15:40 | P.PN ---
Subjective History of present illness: This is a 58-year-old male patient of Dr. Peter with past medical history of peripheral artery disease with prior angioplasty of the left SFA, history of left common femoral endarterectomy and subsequent amputation of the left second and third toes, hypertension, dyslipidemia, tobacco use and dependence. Gives history that as of last he was working on his tractor and when he was done he noticed that his left foot started to hurt and continued to ache all weekend. He had an appointment yesterday with Dr. Peter and he was found to have coolness to the left foot, dorsalis pedis, posterior tibial, and popliteal pulses were unable to be obtained. Patient was sent directly to the emergency center for CTA. Patient was found to have occlusion of the left lower extremity superficial femoral artery and started on heparin drip. Plan is for patient to go for thrombectomy and possible tPA infusion. Patient is agreeable to move forward with this. Patient is an active smoker. EKG sinus rhythm with occasional PVC, nonspecific T wave change Lower extremity CTA bilaterally revealed occlusion of the left lower extremity superficial femoral artery extending from its origin through the remainder of the superficial femoral artery distally where there is a stent graft that is occluded. Right lower extremity vessels appear patent with posterior tibial artery crossing the ankle. The right anterior tibial artery is poorly visualized at the ankle. WBC 16.2, hemoglobin 15.2. Sodium 137, potassium 3.8, creatinine 0.73. Home cardiac medications: Aspirin 81 mg daily, atorvastatin 80 mg at bedtime, Plavix 75 mg daily, lisinopril 5 mg daily. 10/05 Patient seen and examined. Patient went for repeat angiography after TPA placement this morning which showed improvement and SFA thrombus. He did have significant amount of reperfusion pain however being controlled. He denies any chest pain or pressure. No significant shortness breath. Vital signs appear stable. Physical examination: Gen: This is a 58-year-old male in no acute distress. VS: reviewed, HEENT: Head is atraumatic, normocephalic. Pupils equal, round. Sclerae is anicteric. NECK: Supple. No JVD. LUNGS: Clear to auscultation. No wheezes or rhonchi. No intercostal retractions. HEART: Regular rate and rhythm. No murmur. ABDOMEN: Soft No tenderness. EXTREMITIES: No pedal edema. No calf tenderness. NEUROLOGICAL: Patient is awake, alert and oriented x3. Assessment: Left superficial femoral artery occlusion Peripheral vascular disease with previous angioplasty of the left SFA and endarterectomy of the left common femoral artery Hypertension Dyslipidemia Active tobacco use and dependence Plan: Resume patient's home cardiac medications S/p TPA catheter placement with improvement in flow today however still distal disease Plan is to continue catheter until tomorrow and likely recheck. Continue with current TPA and heparin. Objective - Vital Signs Vital signs: Vital Signs Temp 98.2 F 10/06/23 12:15 Pulse 84 10/06/23 15:00 Resp 16 10/06/23 15:00 BP 119/69 10/06/23 15:00 Pulse Ox 92 L 10/06/23 15:00 FiO2 Intake & Output 10/05/23 10/06/23 10/06/23 18:59 06:59 18:59 Intake Total 4444.554 3790 1030 Output Total 825 250 350 Balance 472.283 955 680 Weight 109.2 kg Intake: IV 527 900 775 Sodium Chloride 0.9% 1, 225 900 375 000 ml @ 75 mls/hr IV . [id number] [facility] Rx#:[id number] Sodium Chloride 0.9% 1, 300 000 ml @ 75 mls/hr IV . [id number] [facility] Rx#:[id number] Intake, IV Titration 770.283 180 15 Amount Alteplase 10 mg In Sodium 30 120 10 Chloride 0.9% 90 ml @ 1 MG/HR 10 mls/hr IA .Q10H [facility] Rx#:[id number] Heparin Sod,Pork in 0.45% 275.283 NaCl 25,000 unit In 0.45 % NaCl 1 250ml.bag @ 18 UNITS/KG/HR 18.779 mls/hr IV .[id number] [facility] Rx#: [id number] Heparin Sod,Pork in 0.45% 15 60 5 NaCl 25,000 unit In 0.45 % NaCl 1 250ml.bag @ 5 mls/hr IV .Q24H [facility] Rx#: [id number] Sodium Chloride 0.9% 1, 450 000 ml @ 75 mls/hr IV . [id number] [facility] Rx#:[id number] Oral 125 240 Output: Urine 825 250 350 Other: Voiding Method Urinal Urinal Urinal # Bowel Movements 0 0 0 ABP, PAP, CO, CI - Last Documented Arterial Blood Pressure 112/71 - Labs CBC & Chem 7: 10/06/23 12:30 10/06/23 12:30 Labs: Abnormal Lab Results - Last 24 Hours (Table) 10/05/23 10/05/23 10/06/23 Range/Units 16:04 16:04 12:30 WBC 14.6 H 16.3 H (3.8-10.6) k/uL MCV 101.8 H (80.0-100.0) fL Neutrophils # 11.2 H 13.7 H (1.3-7.7) k/uL Monocytes # 1.2 H (0-1.0) k/uL Fibrinogen 583 H (200-500) mg/dL Sodium (137-145) mmol/L Chloride (98-107) mmol/L Carbon Dioxide (22-30) mmol/L Creatinine (0.66-1.25) mg/dL 10/06/23 Range/Units 12:30 WBC (3.8-10.6) k/uL MCV (80.0-100.0) fL Neutrophils # (1.3-7.7) k/uL Monocytes # (0-1.0) k/uL Fibrinogen (200-500) mg/dL Sodium 136 L (137-145) mmol/L Chloride 109 H (98-107) mmol/L Carbon Dioxide 20 L (22-30) mmol/L Creatinine 0.63 L (0.66-1.25) mg/dL
[2023-10-06 20:21] LABS: Basophils % (A) 0 %; Eosinophils # (A) 0.1 k/uL (0-0.7); Eosinophils % (A) 1 %; HCT 45.4 % (39.0-53.0); HGB 14.6 gm/dL (13.0-17.5); Lymphocytes % (A) 7 %; MCH 31.9 pg (25.0-35.0); MCHC 32.2 g/dL (31.0-37.0); MCV 99.3 fL (80.0-100.0); Mean Platelet Volume 8.9; Monocytes # (A) 1.2 k/uL (0-1.0); Monocytes % (A) 8 %; Neutrophils # (A) 11.7 k/uL (1.3-7.7); Neutrophils % (A) 82 %; Platelet Count 182 k/uL (150-450); RBC 4.57 m/uL (4.30-5.90); RDW 13.1 % (11.5-15.5); WBC 14.2 k/uL (3.8-10.6)
[2023-10-06 20:32] LABS: African American GFR (CKD) >90 (>60 ml/min/1.73 sqM); Anion Gap 5 mmol/L; Blood Urea Nitrogen 15 mg/dL (9-20); Calcium 8.2 mg/dL (8.4-10.2); Carbon Dioxide 26 mmol/L (22-30); Chloride 105 mmol/L (98-107); Glucose 100 mg/dL (74-99); Non-African American GFR(CKD) >90 (>60 ml/min/1.73 sqM); Potassium 4.2 mmol/L (3.5-5.1); Sodium 136 mmol/L (137-145)
[2023-10-06 20:35] LABS: Partial Thromboplastin Time 28.5 sec (22.0-30.0); Prothrombin Time 11.4 sec (10.0-12.5)
[2023-10-07 04:59] LABS: African American GFR (CKD) >90 (>60 ml/min/1.73 sqM); Anion Gap 8 mmol/L; Blood Urea Nitrogen 15 mg/dL (9-20); Calcium 8.5 mg/dL (8.4-10.2); Carbon Dioxide 23 mmol/L (22-30); Chloride 104 mmol/L (98-107); Glucose 91 mg/dL (74-99); Non-African American GFR(CKD) >90 (>60 ml/min/1.73 sqM); Potassium 3.5 mmol/L (3.5-5.1); Sodium 135 mmol/L (137-145)
[2023-10-07] MEDS: ALTEPLASE 10 MG in SODIUM CHLORIDE 0.9% 90 ML IA ONE (06:41)
[2023-10-07] MEDS: MIDAZOLAM 2 MG/2 ML VIAL IVP ONE (10:01)
[2023-10-07] MEDS: niCARdipine Syringe (1,000 mcg/10 mL) INTRAARTER ONE (10:05)
[2023-10-07] MEDS: NITROGLYCERIN 1000MCG/10ML SYRINGE INTRAARTER ONE (10:05)
[2023-10-07] MEDS: IV FLUID CONTINUATION 800 ML IV ONE (10:20)
[2023-10-07] MEDS ORDERED: NALOXONE 0.4 MG/ML 1 ML VIAL IVP PRN (10:20)
[2023-10-07] MEDS: fentaNYL (PF) 50 MCG/ML 2 ML AMP IVP ONE (10:20)
[2023-10-07] MEDS: IOPAMIDOL-250 100ML BTL INTRAARTER ONE (10:23)
--- NOTE | 2023-10-07 10:26 | P.PCN ---
Date of Procedure: 10/07/23 Operative Findings: Percutaneous peripheral arterial angiogram Performing physician Ephraim Peter MD Procedure performed Recheck (Third look) left lower extremity angiogram after tPA infusion Removal of tPA infusion catheter from the left posterior tibial artery/left SFA/left popliteal Gradient measurement across the left external iliac artery Selective right common femoral artery angiogram Indication Acute limb ischemia of the left lower extremity. Please see previous dictation Approach Right common femoral artery Complication None Level of sedation Moderate with sedation length of 20 minutes Procedure description After obtaining informed consent the patient was brought to the cardiac Solar Energy Advisor. After that I did remove the infusion catheter over 035 wire and left the [address]. Left lower extremity angiogram was performed with injection through the sheath and that showed open left common femoral artery and left SFA and left popliteal with open peroneal artery but occluded and occluded anterior tibial and posterior tibial artery. Findings are somewhat slightly better compared to before. Because there was a concern of the junction between the left external iliac artery and left common femoral artery I did gradient measurement across it and that came in to be at 5 mmHg only which is nonsignificant. Subsequently I did exchange the 70 cm 7 [place]an sheath into 11 cm 7 [place] sheath over 035 wire. By the end selective right common femoral artery angiogram was performed. The procedure was completed with no complication Postprocedure management Removal of the short 7 [place]an sheath with manual hemostasis Smoking cessation was addressed with the patient Consider triple therapy including dual antiplatelet therapy along with low-dose novel anticoagulation agent once we have hemostasis Possible discharge in the next 12 to 24 hours
--- NOTE | 2023-10-07 10:52 | IR ---
EXAMINATION TYPE: IR transcath infusion therapy Intraoperative/procedural fluoroscopic services were provided. CLINICAL INDICATION:Male, 58 years old with history of TPA catheter recheck, 2.7min fluoro; , [facility] Total fluoroscopy time is 2.7 min. DAP: 683 uGym2 Please see the operative/procedural note for further details.
--- NOTE | 2023-10-07 16:02 | P.PN ---
Subjective Progress Note Date: 10/07/23 58-year-old male with a PMH of hypertension, hyperlipidemia, and peripheral artery disease status post left lower extremity stenting and multiple left toe amputations, and tobacco abuse who was sent to the emergency room by Dr. Peter'eva for left lower extremity pain. The patient reports that over the past 3 to 4 days, he has noticed gradually worsening pain of his left foot. He was subsequently seen in Dr. Peter's office earlier today who advised the patient to come to the emergency room. The patient reports that his pain has improved since arrival at the emergency room, currently rated at a 3 out of 10. He also reports that his left foot feels cool to the touch. CT angiogram of lower extremities bilaterally revealed an occlusion of the left SFA from its origin through to the stent graft which is occluded. EKG revealed sinus tachycardia with PVCs at 108 bpm with T wave flattening in leads V5 and V6. Laboratory evaluation was remarkable for WBC count 17.4, hemoglobin 18.0, sodium 138, chloride 109, BUN 11, creatinine 0.77. Started on heparin drip and admitted for evaluation by Dr. Alonso. Underwent LLE angiogram with placement of infusion catheter for tPA in the left popliteal and left SFA on 10/04. Second look performed on 10/05, removal of infusion catheter and replacement of infusion catheter for tPA in the left posterior tibial artery. 10/06 Patient was seen and examined this morning. Currently with atletplase running at 1 mg/hr, heparin drip. He continues to require Dilaudid for pain control, 2mg IV given 11PM last night. BMP Na 135. Plans for re-check today. General: non toxic, no distress, appears at stated age Derm: warm, dry Head: atraumatic, normocephalic, symmetric Eyes: EOMI, no lid lag, anicteric sclera Mouth: no lip lesion, mucus membranes moist Cardiovascular: S1S2 reg, no murmur Lungs: CTA bilateral, no rhonchi, no rales , no accessory muscle use Ext: no gross muscle atrophy, no edema, no contractures Neuro: no focal neuro deficits Psych: Alert, oriented, appropriate affect Unable to palpate DP and tibial pulses LLE. Left superficial femoral artery occlusion: Maintain heparin and alteplase drip. Monitor coag panel while on heparin. ASA 81 mg PO QD. Plavix 75 mg PO QD. Lipitor 80 mg PO QD. Dilaudid 2 mg IV Q2H PRN for severe pain. Cardiology on b oard. Hypoxia: O2 saturation in the high 80s on RA. Leukocytosis: With neutrophilia. No signs of active infection. Monitor fever profile. Repeat CBC. Hypertension: BP 152/81. Lisinopril 5 mg PO QD. Hyperlipidemia: Lipitor as above. Tobacco abuse: Nicotine patch offered. Resolved: Polycythemia CODE STATUS: FULL CODE DVT Prophylaxis: Heparin drip GI Prophylaxis: Designated medical POA if patient is not able to make medical decisions for themselves: I have reviewed the following organizational development consultant notes: Cardiology. I have reviewed the results of the following tests: BMP. I have ordered the following tests: Coag panel while on heparin. I have discussed the care of this patient with the following independent historian: I have independently interpreted the following test below: I have discussed the management of this patient with the following physician: Objective - Vital Signs Vital signs: Vital Signs Temp 98.1 F 10/07/23 04:00 Pulse 101 H 10/07/23 07:00 Resp 19 10/07/23 07:00 BP 152/81 10/07/23 07:00 Pulse Ox 89 L 10/07/23 07:00 FiO2 Intake & Output 10/06/23 10/07/23 10/07/23 18:59 06:59 18:59 Intake Total 1255 695 20 Output Total 625 650 0 Balance 630 45 20 Weight 107.5 kg Intake: IV 1000 295 20 KVO 220 20 Sodium Chloride 0.9% 1, 375 000 ml @ 75 mls/hr IV . [id number] [facility] Rx#:[id number] Sodium Chloride 0.9% 1, 525 75 000 ml @ 75 mls/hr IV . [id number] [facility] Rx#:[id number] Intake, IV Titration 15 Amount Alteplase 10 mg In Sodium 10 Chloride 0.9% 90 ml @ 1 MG/HR 10 mls/hr IA .Q10H [facility] Rx#:[id number] Heparin Sod,Pork in 0.45% 5 NaCl 25,000 unit In 0.45 % NaCl 1 250ml.bag @ 5 mls/hr IV .Q24H [facility] Rx#: [id number] Oral 240 400 Output: Urine 625 650 0 Other: Voiding Method Urinal Urinal # Bowel Movements 0 0 0 ABP, PAP, CO, CI - Last Documented Arterial Blood Pressure 112/71 - Labs CBC & Chem 7: 10/06/23 19:51 10/07/23 04:15 Labs: Abnormal Lab Results - Last 24 Hours (Table) 10/06/23 10/06/23 10/06/23 Range/Units 12:30 12:30 19:51 WBC 16.3 H 14.2 H (3.8-10.6) k/uL MCV 101.8 H (80.0-100.0) fL Neutrophils # 13.7 H 11.7 H (1.3-7.7) k/uL Monocytes # 1.2 H 1.2 H (0-1.0) k/uL Sodium 136 L (137-145) mmol/L Chloride 109 H (98-107) mmol/L Carbon Dioxide 20 L (22-30) mmol/L Creatinine 0.63 L (0.66-1.25) mg/dL Glucose (74-99) mg/dL Calcium (8.4-10.2) mg/dL 10/06/23 10/07/23 Range/Units 19:51 04:15 WBC (3.8-10.6) k/uL MCV (80.0-100.0) fL Neutrophils # (1.3-7.7) k/uL Monocytes # (0-1.0) k/uL Sodium 136 L 135 L (137-145) mmol/L Chloride (98-107) mmol/L Carbon Dioxide (22-30) mmol/L Creatinine (0.66-1.25) mg/dL Glucose 100 H (74-99) mg/dL Calcium 8.2 L (8.4-10.2) mg/dL
--- NOTE | 2023-10-07 16:05 | P.PN ---
Subjective History of present illness: This is a 58-year-old male patient of Dr. Peter with past medical history of peripheral artery disease with prior angioplasty of the left SFA, history of left common femoral endarterectomy and subsequent amputation of the left second and third toes, hypertension, dyslipidemia, tobacco use and dependence. Gives history that as of last he was working on his tractor and when he was done he noticed that his left foot started to hurt and continued to ache all weekend. He had an appointment yesterday with Dr. Peter and he was found to have coolness to the left foot, dorsalis pedis, posterior tibial, and popliteal pulses were unable to be obtained. Patient was sent directly to the emergency center for CTA. Patient was found to have occlusion of the left lower extremity superficial femoral artery and started on heparin drip. Plan is for patient to go for thrombectomy and possible tPA infusion. Patient is agreeable to move forward with this. Patient is an active smoker. EKG sinus rhythm with occasional PVC, nonspecific T wave change Lower extremity CTA bilaterally revealed occlusion of the left lower extremity superficial femoral artery extending from its origin through the remainder of the superficial femoral artery distally where there is a stent graft that is occluded. Right lower extremity vessels appear patent with posterior tibial artery crossing the ankle. The right anterior tibial artery is poorly visualized at the ankle. WBC 16.2, hemoglobin 15.2. Sodium 137, potassium 3.8, creatinine 0.73. Home cardiac medications: Aspirin 81 mg daily, atorvastatin 80 mg at bedtime, Plavix 75 mg daily, lisinopril 5 mg daily. 10/05 Patient seen and examined. Patient went for repeat angiography after TPA placement this morning which showed improvement and SFA thrombus. He did have significant amount of reperfusion pain however being controlled. He denies any chest pain or pressure. No significant shortness breath. Vital signs appear stable. 10/06 Patient seen and examined. Patient went for recheck with TPA infusing of the below leg which showed no significant stenosis of the SFA popliteal and brisk flow in the peroneal. He therefore had catheter removed and currently denies an y extremity pain. He denies chest pain or pressure. No shortness breath. His right femoral site appears without hematoma. We discussed triple therapy with Bobyrelmarzena COMPASS dosing. Physical examination: Gen: This is a 58-year-old male in no acute distress. VS: reviewed, HEENT: Head is atraumatic, normocephalic. Pupils equal, round. Sclerae is anicteric. NECK: Supple. No JVD. LUNGS: Clear to auscultation. No wheezes or rhonchi. No intercostal retractions. HEART: Regular rate and rhythm. No murmur. ABDOMEN: Soft No tenderness. EXTREMITIES: No pedal edema. No calf tenderness. NEUROLOGICAL: Patient is awake, alert and oriented x3. Assessment: Left superficial femoral artery occlusion Peripheral vascular disease with previous angioplasty of the left SFA and endarterectomy of the left common femoral artery Hypertension Dyslipidemia Active tobacco use and dependence Plan: Patient has been doing well status post TPA. Continue with aspirin and Plavix. Add low dose Xarelto and if no significant issues likely discharge patient 10/07 Objective - Vital Signs Vital signs: Vital Signs Temp 98.2 F 10/07/23 08:00 Pulse 88 10/07/23 14:30 Resp 22 10/07/23 14:30 BP 126/112 10/07/23 14:30 Pulse Ox 92 L 10/07/23 14:30 FiO2 Intake & Output 10/06/23 10/07/23 10/07/23 18:59 06:59 18:59 Intake Total 1255 695 270 Output Total 625 650 225 Balance 630 45 45 Weight 107.5 kg Intake: IV 1000 295 270 KVO 220 120 Sodium Chloride 0.9% 1, 375 000 ml @ 75 mls/hr IV . [id number] [facility] Rx#:[id number] Sodium Chloride 0.9% 1, 525 75 000 ml @ 75 mls/hr IV . [id number] [facility] Rx#:[id number] Intake, IV Titration 15 Amount Alteplase 10 mg In Sodium 10 Chloride 0.9% 90 ml @ 1 MG/HR 10 mls/hr IA .Q10H [facility] Rx#:[id number] Heparin Sod,Pork in 0.45% 5 NaCl 25,000 unit In 0.45 % NaCl 1 250ml.bag @ 5 mls/hr IV .Q24H [facility] Rx#: [id number] Oral 240 400 Output: Urine 625 650 225 Other: Voiding Method Urinal Urinal Urinal # Bowel Movements 0 0 0 ABP, PAP, CO, CI - Last Documented Arterial Blood Pressure 112/71 - Labs CBC & Chem 7: 10/06/23 19:51 10/07/23 04:15 Labs: Abnormal Lab Results - Last 24 Hours (Table) 10/06/23 10/06/23 10/07/23 Range/Units 19:51 19:51 04:15 WBC 14.2 H (3.8-10.6) k/uL Neutrophils # 11.7 H (1.3-7.7) k/uL Monocytes # 1.2 H (0-1.0) k/uL Sodium 136 L 135 L (137-145) mmol/L Glucose 100 H (74-99) mg/dL Calcium 8.2 L (8.4-10.2) mg/dL
[2023-10-07] MEDS: SODIUM CHLORIDE 0.9% 1,000 ML in EMPTY BAG 1 BAG IV SCH (16:46)
[2023-10-07] MEDS: RIVAROXABAN 2.5 MG TABLET PO SCH (20:31)
--- NOTE | 2023-10-08 07:38 | XR ---
EXAMINATION TYPE: XR chest 1V portable DATE OF EXAM: 10/08/2023 Comparison: None Clinical History: 58-year-old male hypoxia Findings: Heart upper limits of normal in size. Relative upper lung lucencies with hyperinflation. There is pat zion opacity at the left mid and lower lung. No pleural effusion. Impression: COPD with patchy atelectasis versus developing infiltrate at the left mid and lower lung.
[2023-10-08] MEDS: HYDROcodone/APAP 10-325MG 1 EACH TAB PO PRN (10:31)
[2023-10-08 13:16] VITALS: TEMP 98.1
[2023-10-08 14:37] VITALS: BP 120/87; RESP 14
--- NOTE | 2023-10-08 15:17 | P.PN ---
Subjective History of present illness: This is a 58-year-old male patient of Dr. Peter with past medical history of peripheral artery disease with prior angioplasty of the left SFA, history of left common femoral endarterectomy and subsequent amputation of the left second and third toes, hypertension, dyslipidemia, tobacco use and dependence. Gives history that as of last he was working on his tractor and when he was done he noticed that his left foot started to hurt and continued to ache all weekend. He had an appointment yesterday with Dr. Peter and he was found to have coolness to the left foot, dorsalis pedis, posterior tibial, and popliteal pulses were unable to be obtained. Patient was sent directly to the emergency center for CTA. Patient was found to have occlusion of the left lower extremity superficial femoral artery and started on heparin drip. Plan is for patient to go for thrombectomy and possible tPA infusion. Patient is agreeable to move forward with this. Patient is an active smoker. EKG sinus rhythm with occasional PVC, nonspecific T wave change Lower extremity CTA bilaterally revealed occlusion of the left lower extremity superficial femoral artery extending from its origin through the remainder of the superficial femoral artery distally where there is a stent graft that is occluded. Right lower extremity vessels appear patent with posterior tibial artery crossing the ankle. The right anterior tibial artery is poorly visualized at the ankle. WBC 16.2, hemoglobin 15.2. Sodium 137, potassium 3.8, creatinine 0.73. Home cardiac medications: Aspirin 81 mg daily, atorvastatin 80 mg at bedtime, Plavix 75 mg daily, lisinopril 5 mg daily. 10/05 Patient seen and examined. Patient went for repeat angiography after TPA placement this morning which showed improvement and SFA thrombus. He did have significant amount of reperfusion pain however being controlled. He denies any chest pain or pressure. No significant shortness breath. Vital signs appear stable. 10/06 Patient seen and examined. Patient went for recheck with TPA infusing of the below leg which showed no significant stenosis of the SFA popliteal and brisk flow in the peroneal. He therefore had catheter removed and currently denies an y extremity pain. He denies chest pain or pressure. No shortness breath. His right femoral site appears without hematoma. We discussed triple therapy with Bobyrelmarzena COMPASS dosing. 10/07 Seen and examined. No chest pain or pressure. LLE warm. 3rd left toe dusly however has good feeling in it and no signs of infection. Physical examination: Gen: This is a 58-year-old male in no acute distress. VS: reviewed, HEENT: Head is atraumatic, normocephalic. Pupils equal, round. Sclerae is anicte jimmy. NECK: Supple. No JVD. LUNGS: Clear to auscultation. No wheezes or rhonchi. No intercostal re tractions. HEART: Regular rate and rhythm. No murmur. ABDOMEN: Soft No tenderness. EXTREMITIES: No pedal edema. No calf tenderness. NEUROLOGICAL: Patient is awake, alert and oriented x3. Assessment: Left superficial femoral artery occlusion Peripheral vascular disease with previous angioplasty of the left SFA and endarterectomy of the left common femoral artery Hypertension Dyslipidemia Active tobacco use and dependence Plan: patient is status post revascularization of his left lower extremity. Continue with dual antiplatelets as well as Xarelto. Right femoral site appears stable and patient is stable for discharge home from a cardiac standpoint. Objective - Vital Signs Vital signs: Vital Signs Temp 98.1 F 10/08/23 12:00 Pulse 100 10/08/23 10:00 Resp 14 10/08/23 10:00 BP 129/86 10/08/23 10:00 Pulse Ox 95 10/08/23 10:00 FiO2 Intake & Output 10/07/23 10/08/23 10/08/23 18:59 06:59 18:59 Intake Total 350 620 200 Output Total 650 250 300 Balance -300 370 -100 Weight 107.1 kg Intake: IV 350 220 0 KVO 200 220 0 Oral 400 200 Output: Urine 650 250 300 Other: Voiding Method Urinal Urinal Urinal # Voids 1 # Bowel Movements 0 0 ABP, PAP, CO, CI - Last Documented Arterial Blood Pressure 112/71 - Labs CBC & Chem 7: 10/06/23 19:51 10/07/23 04:15
--- NOTE | 2023-10-08 15:35 | P.DS ---
Providers Date of admission: 10/04/23 19:14 Expected date of discharge: 10/08/23 Attending physician: Lucinda Wallace MD Consults: 10/04/23 19:13 Consult Physician Urgent Consulting Provider: Ephraim Peter Consult Reason/Comments: Superficial femoral artery occlusion Do you want consulting provider notified?: Yes Primary care physician: [facility] Course: 58-year-old male with a PMH of hypertension, hyperlipidemia, and peripheral artery disease status post left lower extremity stenting and multiple left toe amputations, and tobacco abuse who was sent to the emergency room by Dr. Peter's for left lower extremity pain. The patient reports that over the past 3 to 4 days, he has noticed gradually worsening pain of his left foot. He was subsequently seen in Dr. Peter's office earlier today who advised the patient to come to the emergency room. The patient reports that his pain has improved since arrival at the emergency room, currently rated at a 3 out of 10. He also reports that his left foot feels cool to the touch. CT angiogram of lower extremities bilaterally revealed an occlusion of the left SFA from its origin through to the stent graft which is occluded. EKG revealed sinus tachycardia with PVCs at 108 bpm with T wave flattening in leads V5 and V6. Laboratory evaluation was remarkable for WBC count 17.4, hemoglobin 18.0, sodium 138, chloride 109, BUN 11, creatinine 0.77. Started on heparin drip and admitted for evaluation by Dr. Alonso. Underwent LLE angiogram with placement of infusion catheter for tPA in the left popliteal and left SFA on 10/04. Second look performed on 10/05, removal of infusion catheter and replacement of infusion catheter for tPA in the left posterior tibial artery. Third look was performed on 10/06, removal of tPA infusion catheter from the left posterior tibial artery/left SFA/left popliteal. Patient was continued on ASA 81 mg PO QD, Lipitor 80 mg PO QHS and started on Xarelto 2.5 mg PO BID. 10/07 Patient was seen and examined. BMP shows Na 135. Patient has been low 90s O2 sat during his hospitalization. He does have a 20 PPD smoking history. CXR shows some atelectasis with findings of COPD. Incentive spirometer has been ordered. Home O2 eval passed. Discussed with Dr. Zamora, cleared for discharge. Follow up with Dr. Alonso within 1 week of discharge. Follow up with PCP within 1-2 days of discharge. Prescription for Xarelto will be sent to the pharmacy along with Victor 10 Q6H PRN for pain. General: non toxic, no distress, appears at stated age Derm: warm, dry, distal toe discoloration on the left lower extremity Head: atraumatic, normocephalic, symmetric Eyes: EOMI, no lid lag, anicteric sclera Mouth: no lip lesion, mucus membranes moist Cardiovascular: S1S2 reg, no murmur Lungs: CTA bilateral, no rhonchi, no rales , no accessory muscle use Ext: Difficulty palpating DP and TP pulses in the left lower extremity, extremities warm Neuro: no focal neuro deficits Psych: Alert, oriented, appropriate affect Discharge Diagnosis: Left superficial femoral artery occlusion Atelectasis Leukocytosis Hypertension Hyperlipidemia Tobacco abuse Resolved: Polycythemia This complex discharge took 35 minutes to complete. Patient Condition at Discharge: Stable Plan - Discharge Summary New Discharge Prescriptions: New HYDROcodone/APAP 10-325MG [Victor 10-325] 1 each PO Q4HR PRN #18 tab PRN Reason: Pain Rivaroxaban [Xarelto] 2.5 mg PO BID #60 tab Continue Multivitamins, Thera [Multivitamin (formulary)] 1 tab PO DAILY Atorvastatin [Lipitor] 80 mg PO HS Clopidogrel [Plavix] 75 mg PO DAILY #90 tab Aspirin 81 mg PO DAILY lisinopriL [Zestril] 5 mg PO DAILY Discharge Medication List Multivitamins, Thera [Multivitamin (formulary)] 1 tab PO DAILY 07/25/20 [History] Atorvastatin [Lipitor] 80 mg PO HS 08/11/20 [History] Clopidogrel [Plavix] 75 mg PO DAILY #90 tab 08/14/20 [Rx] Aspirin 81 mg PO DAILY 07/31/21 [History] lisinopriL [Zestril] 5 mg PO DAILY 10/04/23 [History] HYDROcodone/APAP 10-325MG [Victor 10-325] 1 each PO Q4HR PRN #18 tab 10/08/23 [R x] Rivaroxaban [Xarelto] 2.5 mg PO BID #60 tab 10/08/23 [Rx] Follow up Appointment(s)/Referral(s): Yandel Bhardwaj MD [Primary Care Provider] - 1-2 days Ephraim Peter MD [STAFF PHYSICIAN] - 1 Week Discharge Disposition: HOME SELF-CARE
== END 2023-10-08 16:27 | disposition home or self-care (01) | DRG 279 ==
LOC: EC 15:29 → 3SCARD 19:14 → 2SICU 10-05 15:27
PROVIDERS: ADMIT Internal Medicine; ATTEND Internal Medicine
PROC: B41G1ZZ Fluoroscopy of Left Lower Extremity Arteries using Low Osmolar Contrast (ICD-10-PCS; 2023-10-05)
PROC: B44GZZ3 Ultrasonography of Left Lower Extremity Arteries, Intravascular (ICD-10-PCS; 2023-10-05)
PROC: 04HL33Z Insertion of Infusion Device into Left Femoral Artery, Percutaneous Approach (ICD-10-PCS; 2023-10-05)
PROC: 04HN33Z Insertion of Infusion Device into Left Popliteal Artery, Percutaneous Approach (ICD-10-PCS; 2023-10-05)
PROC: 04FL3Z0 Fragmentation of Left Femoral Artery, Percutaneous Approach, Ultrasonic (ICD-10-PCS; 2023-10-06)
PROC: 04FN3Z0 Fragmentation of Left Popliteal Artery, Percutaneous Approach, Ultrasonic (ICD-10-PCS; 2023-10-06)
PROC: B41G1ZZ Fluoroscopy of Left Lower Extremity Arteries using Low Osmolar Contrast (ICD-10-PCS; 2023-10-06)
PROC: 04HN33Z Insertion of Infusion Device into Left Popliteal Artery, Percutaneous Approach (ICD-10-PCS; 2023-10-06)
PROC: 04PYX3Z Removal of Infusion Device from Lower Artery, External Approach (ICD-10-PCS; 2023-10-06)
PROC: 04FN3Z0 Fragmentation of Left Popliteal Artery, Percutaneous Approach, Ultrasonic (ICD-10-PCS; 2023-10-07)
PROC: B41F1ZZ Fluoroscopy of Right Lower Extremity Arteries using Low Osmolar Contrast (ICD-10-PCS; 2023-10-07)
PROC: 04PYX3Z Removal of Infusion Device from Lower Artery, External Approach (ICD-10-PCS; 2023-10-07)
PROC: 04FL3Z0 Fragmentation of Left Femoral Artery, Percutaneous Approach, Ultrasonic (ICD-10-PCS; principal; 2023-10-07 07:30)
DX: I74.3 Embolism and thrombosis of arteries of the lower extremities (principal); J98.11 Atelectasis; D75.1 Secondary polycythemia; F17.210 Nicotine dependence, cigarettes, uncomplicated; Z71.6 Tobacco abuse counseling; I70.202 Unspecified atherosclerosis of native arteries of extremities, left leg; I10 Essential (primary) hypertension; E78.5 Hyperlipidemia, unspecified; I49.3 Ventricular premature depolarization; R09.02 Hypoxemia; Z79.82 Long term (current) use of aspirin; Z79.02 Long term (current) use of antithrombotics/antiplatelets; Z79.899 Other long term (current) drug therapy; Z89.422 Acquired absence of other left toe(s)
CPT/HCPCS: 36247; 36415; 37211; 37213; 37214; 71045; 75710; 76937; 80048; 80053; 82565; 84520; 85025; 85027; 85384; 85610; 85730; 86850; 86900; 86901; 93005; 96361; 96365; 96366; 96375; 96376; 99291

== ENCOUNTER → 2023-11-02 | Outpatient (CLI) | payer BC ==
[2023-11-02 19:44] LABS: ALT 53 U/L (10-49); AST 36 U/L (14-35); Chol/HDL Ratio 2.63 Ratio; LDL Cholesterol,Calculated 35.7 mg/dL (0.0-131.0)
== END | disposition home or self-care (01) ==
LOC: LABWHC1 13:14
PROVIDERS: ATTEND Internal Medicine Interventional Cardiology
DX: E78.00 Pure hypercholesterolemia, unspecified (principal)
CPT/HCPCS: 36415; 80061; 84450; 84460

== ENCOUNTER 2024-03-15 10:13 | Inpatient (IN) | payer BC ==
[2024-03-15] MEDS ORDERED: RX INFO: IV CONTRAST WAS GIVEN 1 EACH MISC MISCELLANE PRN (10:35)
--- NOTE | 2024-03-15 10:52 | ED ---
Extremity Problem HPI - General Chief complaint: Extremity Problem,Nontraumatic Stated complaint: L Leg Numbness Time Seen by Provider: 03/15/24 10:27 Source: patient, RN notes reviewed Mode of arrival: wheelchair Limitations: no limitations - History of Present Illness Initial comments: This is a 59-year-old male who presents to the emergency department for pain in the left foot. 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 He came to the emergency department in September of this year for concern of arterial occlusion. He ended up having occlusion of one of his stents and required additional intervention with tPA infusion catheter. States that he had another blood thinner added afterwards in hopes that it would prevent another occlusion. Currently on Plavix, Xarelto, and baby aspirin. States that over the last week he has had increasing pain in the left foot and noticed that the ischemic area of his toe seems to be turning more black. His foot also seems cooler than normal and he is concerned about another blockage. States that last time the pain went up into his calf, however at this point it is all localized in the foot. MD Complaint: extremity pain - Related Data Home Medications Medication Instructions Recorded Confirmed Atorvastatin [Lipitor] 80 mg PO HS 08/11/20 03/15/24 Aspirin 81 mg PO DAILY 07/31/21 03/15/24 lisinopriL [Zestril] 5 mg PO DAILY PRN 10/04/23 03/15/24 Clopidogrel [Plavix] 75 mg PO DAILY@1200 03/15/24 03/15/24 Previous Rx's Medication Instructions Recorded Rivaroxaban [Xarelto] 2.5 mg PO BID #60 tab 10/08/23 Allergies Allergy/AdvReac Type Severity Reaction Status Date / Time No Known Allergies Allergy Verified 03/15/24 11:25 Review of Systems ROS Statement: Those systems with pertinent positive or pertinent negative responses have been documented in the HPI. ROS Other: All systems not noted in ROS Statement are negative. Past Medical History Past Medical History: Deep Vein Thrombosis (DVT), Vascular Disorder Additional Past Medical History / Comment(s): ulcerative wound on left foot, varicose veins, left inguinal hernia, DVT after needing a cast History of Any Multi-Drug Resistant Organisms: None Reported Additional Past Surgical History / Comment(s): Vein stripped left leg, angiogram, stents left calf Past Anesthesia/Blood Transfusion Reactions: No Reported Reaction Past Psychological History: No Psychological Hx Reported Smoking Status: Current some day smoker Past Alcohol Use History: Occasional Past Drug Use History: None Reported - Past Family History Father Family Medical History: Deep Vein Thrombosis (DVT) Sister(s) Family Medical History: Deep Vein Thrombosis (DVT) General Exam Limitations: no limitations General appearance: alert, in no apparent distress Head exam: Present: atraumatic, normocephalic, normal inspection Respiratory exam: Present: normal lung sounds bilaterally. Absent: respiratory distress, wheezes, rales, rhonchi, stridor Cardiovascular Exam: Present: regular rate, normal rhythm, normal heart sounds. Absent: systolic murmur, diastolic murmur, rubs, gallop, clicks Extremities exam: Present: other (The left foot is overall warm with some decrease in temperature and duskiness over the distal aspect near the toes. One of the middle toes on the left foot is necrotic around the tip of the toe. Diffuse tenderness. Pulses nonpalpable) Neurological exam: Present: alert, oriented X3, CN II-XII intact Psychiatric exam: Present: normal affect, normal mood Course Vital Signs 03/15/24 03/15/24 03/15/24 10:21 13:28 15:00 Temperature 98.5 F Pulse Rate 96 98 72 Respiratory 18 20 18 Rate Blood Pressure 143/91 161/97 148/127 O2 Sat by Pulse 97 97 97 Oximetry 03/15/24 03/15/24 03/15/24 18:00 19:00 20:00 Temperature Pulse Rate 79 81 94 Respiratory 17 18 18 Rate Blood Pressure 135/96 137/99 137/99 O2 Sat by Pulse 74 L 95 97 Oximetry 03/15/24 03/15/24 03/16/24 22:00 22:17 00:00 Temperature Pulse Rate 91 91 84 Respiratory 18 18 18 Rate Blood Pressure 144/97 128/93 120/92 O2 Sat by Pulse 98 96 95 Oximetry 03/16/24 03/16/24 03/16/24 02:00 04:00 06:00 Temperature Pulse Rate 88 80 Respiratory 17 16 Rate Blood Pressure 125/85 114/92 114/92 O2 Sat by Pulse 94 L 96 99 Oximetry 03/16/24 03/16/24 03/16/24 07:45 08:00 08:46 Temperature 97.5 F L Pulse Rate 88 78 Respiratory 18 18 Rate Blood Pressure 133/109 133/109 118/83 O2 Sat by Pulse 96 95 96 Oximetry 03/16/24 03/16/24 03/16/24 10:00 11:03 12:00 Temperature Pulse Rate 74 Respiratory 18 Rate Blood Pressure 118/83 121/91 121/91 O2 Sat by Pulse 96 98 Oximetry Medical Decision Making - Medical Decision Making This is a 59 year old male who presents to the emergency department for left leg pain. Was pt. sent in by a medical professional or institution? @ -No Did you speak to anyone other than the patient for history? @ -No Did you review nursing and triage notes? @ -Yes, and I agree, it is accurate with regards to the patient's symptoms. Were old charts reviewed? @ -No Differential Diagnosis? @ -Leg fracture, leg sprain, DVT, PVD, arterial insufficiency, iliac artery aneurysm, cellulitis, compartment syndrome, tendinopathy, nerve entrapment, piriformis syndrome, osteoarthritis, rhabdomyolysis, myositis, cramping from an electrolyte imbalance, this is not meant to be an all inclusive list. EKG interpreted by me (3pts min.)? @ -EKG interpreted by me demonstrating the following: Sinus rhythm. Ventricular rate 74 bpm, WV interval 139 ms, QRS duration 91 ms, QTc 396 ms. X-rays interpreted by me (1pt min.)? @ -Not obtained CT interpreted by me (1pt min.)? @ -CTA of the left lower extremity obtained. My interpretation identifies occlusion of the left superficial femoral artery. U/S interpreted by me (1pt. min.)? @ -Not obtained What testing was considered but not performed? (CT, X-rays, U/S, labs)? Why? @ -None What meds were considered but not given? Why? @ -None Did you discuss the management of the patient with other professionals? @ -Yes, Dr. Peter, who advised starting the patient on Heparin. Dr. Rizvi accepts the patient for admission to medicine. Did you reconcile home meds? @ -No Was smoking cessation discussed for >3mins.? @ -I discussed smoking cessation for greater than 3 minutes. The risk of smoking were discussed with the patient including but not limited to risks of cancer, stroke, coronary artery disease and COPD. Also discussed with patient were multiple methods of quitting smoking. Lastly we discussed the financial cost of smoking. Was critical care preformed (if so, how long)? @ -No Were there social determinants of health that impacted care today? How? (Homel essness, low income, unemployed, alcoholism, drug addiction, transportation, low edu. Level, literacy, decrease access to med. care, penitentiary, rehab)? @ -No Was there de-escalation of care discussed even if they declined? (Discuss DNR or withdrawal of care, Hospice)? @ -No What co-morbidities impacted this encounter? (DM, HTN, Smoking, COPD, CAD, Can cer, CVA, Hep., AIDS, mental health diagnosis, sleep apnea, morbid obesity)? @ -Vascular disorder, smoking Was patient admitted / discharged? @ -Admitted. Lab work demonstrates a mildly elevated CRP and was otherwise unremarkable. On exam the left lower extremity was still warm to the touch, however at the distal most aspect of the foot was dusky. Pulses were nonpalpable. Using the Doppler there were a couple instances where it appeared that the pulses may have been picked up for a second, however there was nothing consistent. CTA of the left lower extremity obtained demonstrating redemonstration of occlusion of the left lower extremity superficial femoral artery extending from its origin through its stent graft. There is also occlusion of the left popliteal artery and tibioperoneal trunk. The left peroneal artery at its origin demonstrates reconstitution extending throughout its length to its bifurcation at the ankle joint. Anterior and posterior tibial arteries appear occluded. Patient follows with Dr. Peter for vascular management. Case discussed with Dr. Peter, who advised starting the patient on a heparin drip with plan to take him to the [facility] tomorrow. Patient admitted to medicine for superficial femoral artery occlusion with Dr. Peter, cardiology, listed as consult. Case discussed with ED attending, Dr. Killian. Undiagnosed new problem with uncertain prognosis? @ -None Drug Therapy requiring intensive monitoring for toxicity (Heparin, Nitro, Insulin, Cardizem)? @ -Heparin Were any procedures done? @ -None Diagnosis/symptom? @ -Left superficial femoral artery occlusion Acute, or Chronic, or Acute on Chronic? @ -Acute Uncomplicated (without systemic symptoms) or Complicated (systemic symptoms)? @ -Uncomplicated Side effects of treatment? @ -None Exacerbation, Progression, or Severe Exacerbation] @ -Not applicable Poses a threat to life or bodily function? @ -Yes, this poses threat to the left limb - Lab Data Result diagrams: 03/19/24 04:38 03/19/24 04:38 Lab Results 03/15/24 03/15/24 03/15/24 Range/Units 10:48 10:48 10:48 WBC 9.5 (3.8-10.6) k/uL RBC 5.33 (4.30-5.90) m/uL Hgb 16.9 (13.0-17.5) gm/dL Hct 50.2 (39.0-53.0) % MCV 94.2 (80.0-100.0) fL MCH 31.7 (25.0-35.0) pg MCHC 33.6 (31.0-37.0) g/dL RDW 13.3 (11.5-15.5) % Plt Count 301 (150-450) k/uL MPV 8.5 Neutrophils % 73 % Lymphocytes % 14 % Monocytes % 8 % Eosinophils % 3 % Basophils % 1 % Neutrophils # 6.9 (1.3-7.7) k/uL Lymphocytes # 1.4 (1.0-4.8) k/uL Monocytes # 0.7 (0-1.0) k/uL Eosinophils # 0.3 (0-0.7) k/uL Basophils # 0.1 (0-0.2) k/uL PT 10.3 (10.0-12.5) sec INR 0.9 (<1.2) APTT 26.4 (22.0-30.0) sec Sodium 139 (137-145) mmol/L Potassium 4.5 (3.5-5.1) mmol/L Chloride 109 H (98-107) mmol/L Carbon Dioxide 25 (22-30) mmol/L Anion Gap 5 mmol/L BUN 19 (9-20) mg/dL Creatinine 0.73 (0.66-1.25) mg/dL Est GFR (CKD-EPI)AfAm >90 (>60 ml/min/1.73 sqM) Est GFR (CKD-EPI)NonAf >90 (>60 ml/min/1.73 sqM) Glucose 96 (74-99) mg/dL Plasma Lactic Acid Jt (0.7-2.0) mmol/L Calcium 9.3 (8.4-10.2) mg/dL Total Bilirubin 0.8 (0.2-1.3) mg/dL AST 35 (17-59) U/L ALT 27 (4-49) U/L Alkaline Phosphatase 70 (38-126) U/L C-Reactive Protein 1.6 H (<1.0) mg/dL Total Protein 6.9 (6.3-8.2) g/dL Albumin 4.3 (3.5-5.0) g/dL 03/15/24 Range/Units 10:48 WBC (3.8-10.6) k/uL RBC (4.30-5.90) m/uL Hgb (13.0-17.5) gm/dL Hct (39.0-53.0) % MCV (80.0-100.0) fL MCH (25.0-35.0) pg MCHC (31.0-37.0) g/dL RDW (11.5-15.5) % Plt Count (150-450) k/uL MPV Neutrophils % % Lymphocytes % % Monocytes % % Eosinophils % % Basophils % % Neutrophils # (1.3-7.7) k/uL Lymphocytes # (1.0-4.8) k/uL Monocytes # (0-1.0) k/uL Eosinophils # (0-0.7) k/uL Basophils # (0-0.2) k/uL PT (10.0-12.5) sec INR (<1.2) APTT (22.0-30.0) sec Sodium (137-145) mmol/L Potassium (3.5-5.1) mmol/L Chloride (98-107) mmol/L Carbon Dioxide (22-30) mmol/L Anion Gap mmol/L BUN (9-20) mg/dL Creatinine (0.66-1.25) mg/dL Est GFR (CKD-EPI)AfAm (>60 ml/min/1.73 sqM) Est GFR (CKD-EPI)NonAf (>60 ml/min/1.73 sqM) Glucose (74-99) mg/dL Plasma Lactic Acid Jt 1.1 (0.7-2.0) mmol/L Calcium (8.4-10.2) mg/dL Total Bilirubin (0.2-1.3) mg/dL AST (17-59) U/L ALT (4-49) U/L Alkaline Phosphatase (38-126) U/L C-Reactive Protein (<1.0) mg/dL Total Protein (6.3-8.2) g/dL Albumin (3.5-5.0) g/dL - Radiology Data Radiology results: report reviewed, image reviewed Disposition Clinical Impression: Superficial femoral artery occlusion, Nicotine dependence Disposition: ADMITTED IP TO THIS HOSP
[2024-03-15] MEDS: HYDROmorphone 1 MG/ML 1 ML SYRINGE IVP STA ×2 (11:00→14:05)
[2024-03-15 11:21] LABS: Basophils # (A) 0.1 k/uL (0-0.2); Basophils % (A) 1 %; Eosinophils # (A) 0.3 k/uL (0-0.7); Eosinophils % (A) 3 %; HCT 50.2 % (39.0-53.0); HGB 16.9 gm/dL (13.0-17.5); Lymphocytes # (A) 1.4 k/uL (1.0-4.8); Lymphocytes % (A) 14 %; MCH 31.7 pg (25.0-35.0); MCHC 33.6 g/dL (31.0-37.0); MCV 94.2 fL (80.0-100.0); Mean Platelet Volume 8.5; Monocytes # (A) 0.7 k/uL (0-1.0); Monocytes % (A) 8 %; Neutrophils # (A) 6.9 k/uL (1.3-7.7); Neutrophils % (A) 73 %; Platelet Count 301 k/uL (150-450); RBC 5.33 m/uL (4.30-5.90); RDW 13.3 % (11.5-15.5); WBC 9.5 k/uL (3.8-10.6)
[2024-03-15 11:32] LABS: INR 0.9 (<1.2); Partial Thromboplastin Time 26.4 sec (22.0-30.0); Prothrombin Time 10.3 sec (10.0-12.5)
[2024-03-15 12:09] LABS: ALT 27 U/L (4-49); African American GFR (CKD) >90 (>60 ml/min/1.73 sqM); Albumin 4.3 g/dL (3.5-5.0); Anion Gap 5 mmol/L; Blood Urea Nitrogen 19 mg/dL (9-20); C Reactive Protein 1.6 mg/dL (<1.0); Calcium 9.3 mg/dL (8.4-10.2); Carbon Dioxide 25 mmol/L (22-30); Chloride 109 mmol/L (98-107); Glucose 96 mg/dL (74-99); Non-African American GFR(CKD) >90 (>60 ml/min/1.73 sqM); Sodium 139 mmol/L (137-145); Total Bilirubin 0.8 mg/dL (0.2-1.3); Total Protein 6.9 g/dL (6.3-8.2)
[2024-03-15 12:11] LABS: AST 35 U/L (17-59); Alkaline Phosphatase 70 U/L (38-126); Potassium 4.5 mmol/L (3.5-5.1)
[2024-03-15] MEDS ORDERED: HEPARIN SODIUM 1,000 UN/ML (10ML VL) IV PRN (14:38)
[2024-03-15] MEDS: HEPARIN SODIUM 1,000 UN/ML (10ML VL) IV ONE (14:54)
[2024-03-15] MEDS: HEPARIN SOD,PORK IN 0.45% NACL 25,000 UNIT in 0.45% NACL 1 250ML.BAG IV SCH (14:55)
--- NOTE | 2024-03-15 14:56 | CT ---
EXAMINATION TYPE: CT angio lower extremity LT CT DLP: 1430.6 mGycm, Automated exposure control for dose reduction was used. DATE OF EXAM: 03/15/2024 1:09 PM COMPARISON: CTA lower extremity 10/04/2023 CLINICAL INDICATION:Male, 59 years old with history of Left leg pain, hx of arterial occlusion; Left leg pain, hx of arterial occlusion TECHNIQUE: Multiple thin slice sub-millimeter images were obtained through the left pelvis and left l ower extremity after administration of contrast. Patient was given Isovue 370, 100 cc intravenously. 3-D reconstructed images and maximum intensity projection images were obtained of the left pelvis a nd left lower extremity. FINDINGS: CTA: No abdominal aortic aneurysm and the visualized distal abdominal aorta. Mild atherosclerotic calcific ation of the distal abdominal aorta. The visualized portions of the bilateral renal arteries are hoang nt. There appears to be 2 right renal arteries. The CLAUDE is patent. The visualized portion of the aort ic bifurcation is patent. The left common carotid artery is patent with mild atherosclerotic plaque. The external and internal left iliac arteries are patent with some mild apical scarring calcification within the left internal iliac artery. Common femoral artery is patent with dilated appearance again measuring up to 1.4 cm. Redemonstration of eccentric mural thrombus in this region again. Left deep femoral artery is widely patent. There is again occlusion of the left superficial femoral artery at i ts origin. Postsurgical changes with vascular stent identified within the left distal superficial fem oral artery extending into the proximal popliteal artery. No enhancement identified. The tibioperonea l trunk is not opacified. There is reconstitution of the peroneal artery proximally which appears pat ent to its bifurcation just above the ankle joint. The anterior and posterior tibial arteries are not visualized. Varicose veins identified within the left lower extremity. VISCERA: Not optimally enhanced due the arterial phase utilized. The visualized portion of the left kidney is unremarkable. The visualized bowel is unremarkable. Fat filled left inguinal hernia. Mildly enlarged left inguinal lymph node measuring 1.4 cm short axis. Ad ditional smaller prominent left inguinal lymph nodes. No acute osseous abnormalities. Multilevel degenerative changes of the visualized spine. Mild soft ti ssue swelling of the posterior left foot. Amputation changes of the second and third digits at the MT P joint. No visualized osseous erosions. Posterior calcaneal enthesophyte. IMPRESSION: There is redemonstration of occlusion of the left lower extremity superficial femoral artery extendin g from its origin through its stent graft. There is occlusion of the left popliteal artery and tibiop eroneal trunk. The left peroneal artery at its origin demonstrates reconstitution extending throughou t its length to its bifurcation at the ankle joint. The anterior and posterior tibial arteries appear occluded. Findings called to and discussed with CHRISTIANA Reyna at 1:30 PM on 03/15/2024. [facility], , 03/15/2024 1:31 PM
[2024-03-15] MEDS ORDERED: NALOXONE 0.4 MG/ML 1 ML VIAL IV PRN (15:06)
[2024-03-15] MEDS ORDERED: ACETAMINOPHEN TAB 325 MG TAB PO PRN (15:06)
[2024-03-15] MEDS ORDERED: ONDANSETRON 4 MG/2 ML VIAL IVP PRN (15:06)
[2024-03-15] MEDS ORDERED: lisinopriL 5 MG TAB PO PRN (15:13)
--- NOTE | 2024-03-15 15:34 | P.CRDCN ---
History of Present Illness History of present illness: HISTORY OF PRESENT ILLNESS: This is a 59-year-old male with a past medical history significant for hypertension, hyperlipidemia, toe amputation, and peripheral arterial disease with previous angioplasty of left SFA and left common femoral artery endarterectomy and nicotine dependence. Patient follows in the office with Dr. Peter. We have been asked to see the patient in consultation for left SFA occlusion. Patient examined at the bedside in the emergency room. Patient states over the past 4 to 5 days he has noticed increased pain in his left foot. He denies any pain in the left thigh or calf. He also reports his fourth toe started to become black about 5 days ago in the area of skin discoloration has gotten worse. He denies any chest pain or pressure. He denies any shortness of breath. The patient states that he has been trying to quit smoking and uses a nicotine patch a lot. However he does report occasional cigarette smoking. The patient was found to have occlusion of left SFA. He was started on IV heparin. The patient does report he has been compliant at home with aspirin, Plavix, and Xarelto. DIAGNOSTICS: - Laboratory data: WBC 9.5. Hemoglobin 16.9. Platelet count 301. Sodium 139. Potassium 4.5. BUN 19. Creatinine 0.73. - Lower extremity CT: Redemonstration of occlusion of left lower extremity superficial femoral artery extending from its origin through it stent graft. Occlusion of left popliteal artery and tibial peroneal trunk. Left peroneal artery at its origin demonstrates reconstitution extending throughout its length to its bifurcation at the ankle joint. Anterior and posterior tibial arteries appear occluded. - Current home cardiac medications include Plavix 75 mg daily, Lipitor 80 mg at night, lisinopril 5 mg daily as needed, Xarelto 2.5 mg twice a day, and aspirin 81 mg daily - Patient underwent Lexiscan stress test in October 2023 with no evidence of stress-induced ischemia and normal left ventricular systolic function REVIEW OF SYSTEMS: At the time of my exam: CONSTITUTIONAL: Denies fever or chills. HEENT: Denies blurred vision, vision changes, or eye pain. Denies hemoptysis CARDIOVASCULAR: Denies chest pain. Denies orthopnea. Denies PND. Denies palpitations RESPIRATORY: Denies shortness of breath. GASTROINTESTINAL: Denies abdominal pain. Denies nausea or vomiting. HEMATOLOGIC: Denies bleeding disorders. GENITOURINARY: Denies any blood in urine. SKIN: Denies pruitis. Denies rash. PHYSICAL EXAM: VITAL SIGNS: Reviewed. GENERAL: Well-developed in no acute distress. HEENT: Head is normocephalic. Pupils are equal, round. Sclerae anicteric. Mucous membranes of the mouth are moist. Neck supple. No JVD or thyromegaly LUNGS: Respirations even and unlabored. Lungs essentially clear to auscultation bilaterally. HEART: Regular rate and rhythm. S1 and S2 heard. ABDOMEN: Soft. Nondistended. Nontender. EXTREMITIES: Normal range of motion. Left leg remains warm to touch. Amputations noted of left second and third toe. Distal aspect of foot appears to be somewhat dusky. Left 4th toe necrotic. Painful to touch. Pulses absent to touch. NEUROLOGIC: Awake and alert. Oriented x 3. 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 Hold Xarelto. Continue IV heparin Smoking cessation recommended. Patient to be referred to [place] quit line upon discharge N.p.o. at midnight Patient to undergo lower extremity angiogram with likely TPA catheter infusion tomorrow with Dr. Peter Further recommendations pending patient course Nurse practitioner note has been reviewed by physician. Signing provider agrees with the documented findings, assessment, and plan of care documented by [employer] as a scribe. Past Medical History Past Medical History: Deep Vein Thrombosis (DVT), Vascular Disorder Additional Past Medical History / Comment(s): ulcerative wound on left foot, varicose veins, left inguinal hernia, DVT after needing a cast History of Any Multi-Drug Resistant Organisms: None Reported Additional Past Surgical History / Comment(s): Vein stripped left leg, angiogram, stents left calf Past Anesthesia/Blood Transfusion Reactions: No Reported Reaction Past Psychological History: No Psychological Hx Reported Smoking Status: Current some day smoker Past Alcohol Use History: Occasional Past Drug Use History: None Reported - Past Family History Father Family Medical History: Deep Vein Thrombosis (DVT) Sister(s) Family Medical History: Deep Vein Thrombosis (DVT) Medications and Allergies Home Medications Medication Instructions Recorded Confirmed Type Atorvastatin [Lipitor] 80 mg PO HS 08/11/20 03/15/24 History Aspirin 81 mg PO DAILY 07/31/21 03/15/24 History lisinopriL [Zestril] 5 mg PO DAILY PRN 10/04/23 03/15/24 History Rivaroxaban [Xarelto] 2.5 mg PO BID #60 tab 10/08/23 03/15/24 Rx Clopidogrel [Plavix] 75 mg PO DAILY@1200 03/15/24 03/15/24 History Allergies Allergy/AdvReac Type Severity Reaction Status Date / Time No Known Allergies Allergy Verified 03/15/24 11:25 Physical Exam Vitals: Vital Signs Temp Pulse Resp BP Pulse Ox 03/15/24 13:28 98 20 161/97 97 03/15/24 10:21 98.5 F 96 18 143/91 97 Intake and Output 03/15/24 03/15/24 03/15/24 06:59 14:59 22:59 Other: Weight 104.326 kg Results 03/15/24 10:48 03/15/24 10:48 Cardiac Enzymes 03/15/24 Range/Units 10:48 AST 35 (17-59) U/L Coagulation 03/15/24 Range/Units 10:48 PT 10.3 (10.0-12.5) sec APTT 26.4 (22.0-30.0) sec CBC 03/15/24 Range/Units 10:48 WBC 9.5 (3.8-10.6) k/uL RBC 5.33 (4.30-5.90) m/uL Hgb 16.9 (13.0-17.5) gm/dL Hct 50.2 (39.0-53.0) % Plt Count 301 (150-450) k/uL Comprehensive Metabolic Panel 03/15/24 Range/Units 10:48 Sodium 139 (137-145) mmol/L Potassium 4.5 (3.5-5.1) mmol/L Chloride 109 H (98-107) mmol/L Carbon Dioxide 25 (22-30) mmol/L BUN 19 (9-20) mg/dL Creatinine 0.73 (0.66-1.25) mg/dL Glucose 96 (74-99) mg/dL Calcium 9.3 (8.4-10.2) mg/dL AST 35 (17-59) U/L ALT 27 (4-49) U/L Alkaline Phosphatase 70 (38-126) U/L Total Protein 6.9 (6.3-8.2) g/dL Albumin 4.3 (3.5-5.0) g/dL Current Medications Generic Name Dose Route Start Last Admin Trade Name Freq PRN Reason Stop Dose Admin Acetaminophen 650 mg 03/15/24 15:06 Acetaminophen Tab 325 Mg Tab PO Q6HR PRN Mild Pain or Fever > 100.5 Hydrocodone Bitart/Acetaminophen 1 each 03/15/24 15:06 Hydrocodone/Apap 5-325mg 1 Each Tab PO Q4HR PRN Moderate Pain (Scale 4 to 6) Aspirin 81 mg 03/16/24 09:00 Aspirin 81 Mg PO DAILY [facility] Atorvastatin Calcium 80 mg 03/15/24 21:00 Atorvastatin 80 Mg Tab PO HS [facility] Clopidogrel Bisulfate 75 mg 03/16/24 12:00 Clopidogrel 75 Mg Tab PO DAILY@1200 DERICK Heparin Sodium (Porcine) 0 unit 03/15/24 14:38 Heparin Sodium 1,000 Un/Ml (10ml Vl) IV PER PROTOCOL PRN Low PTT Protocol Hydromorphone HCl 1 mg 03/15/24 15:06 Hydromorphone 1 Mg/Ml 1 Ml Syringe IVP Q3HR PRN Severe Pain (Scale 7 to 10) Heparin Sodium/Sodium Chloride 250 mls @ 18.779 mls/hr 03/15/24 14:45 03/15/24 14:55 25,000 unit/ Sodium Chloride IV 18 units/kg/hr .[id number] DERICK 18.779 mls/hr Administration Protocol 18 UNITS/KG/HR Lisinopril 5 mg 03/15/24 15:13 Lisinopril 5 Mg Tab PO DAILY PRN high blood pressure Miscellaneous Information 1 each 03/15/24 10:35 Rx Info: Iv Contrast Was Given 1 Each Misc MISCELLANE 03/17/24 10:36 DAILY PRN Per Protocol Naloxone HCl 0.2 mg 03/15/24 15:06 Naloxone 0.4 Mg/Ml 1 Ml Vial IV Q2M PRN Opioid Reversal Ondansetron HCl 4 mg 03/15/24 15:06 Ondansetron 4 Mg/2 Ml Vial IVP Q8HR PRN Nausea And Vomiting Intake and Output 03/15/24 03/15/24 03/15/24 06:59 14:59 22:59 Other: Weight 104.326 kg Patient Weight 03/16/24 06:59 Weight 104.326 kg 03/15/24 10:48 03/15/24 10:48
--- NOTE | 2024-03-15 15:47 | P.HPIM ---
History of Present Illness H&P Date: 03/15/24 Patient is a 59-year-old male with history of peripheral arterial disease, hypertension, dyslipidemia, nicotine dependence presenting with left lower extremity pain. Patient has had prior left lower extremity stenting and multiple left toe amputations. He claims that he was doing well and started noticing his left foot started to cool 4 days ago, he also noted that one of his toes started to get necrotic and there was some pain associated with it. He waited 4 days before deciding to come back to the hospital. He denies any fevers, chills, abdominal pain, chest pain, urinary or bowel complaints. He continues to smoke about half a pack daily, drinks occasionally, denies any illicit drug use. In the ED, temperature was 98.5, pulse 96, respiratory rate 18, blood pressure 143/91, saturating at 97% on room air. WBC 9.5, hemoglobin 16. 9, platelet 301, creatinine 0.73, CRP 1.6. Left lower extremity CTA shows occlusion of left lower extremity superficial femoral artery extending from its origin through extensive graft, occlusion of left popliteal artery and tibioperoneal trunk, left peroneal artery at its origin demonstrates reconstitution extending throughout its length to its bifurcation at the ankle joint, anterior and posterior tibial arteries appear occluded. Patient started on heparin drip. Cardiology consulted. Patient being admitted for left lower extremity ischemia. Pertinent positives and negatives as discussed in HPI, a complete review of systems was performed and all other systems are negative. Patient seen and examined at bedside. Vital signs reviewed General: nontoxic, no distress, appears at stated age Derm: warm, dry Head: atraumatic, normocephalic, symmetric Eyes: EOMI, no lid lag, anicteric sclera, pupils equal round reactive to light ENT: Nose and ears atraumatic Neck: No thyromegaly, supple Mouth: no lip lesion, mucus membranes moist Cardiovascular: S1S2 reg, no murmur, no edema Lungs: clear to auscultation bilateral, no rhonchi, no rales, no wheeze, no accessory muscle use Abdominal: soft, nontender to palpation, no guarding, no appreciable organomegaly Ext: Cool left foot, dry gangrenous distal third toe, palpable left DP pulse, not DP pulse Neuro: CN II-XII grossly intact Psych: Alert, oriented, appropriate affect Assessment/Plan: Acute left lower extremity ischemia Severe peripheral arterial disease status post previous stents Left SFA occlusion Dyslipidemia Hypertension -Continue heparin drip, monitor APTT and bleeding -Hold Xarelto -Continue aspirin 81 mg, Plavix 75 mg, atorvastatin 80 mg nightly, lisinopril 5 mg daily -Cardiology consulted, would likely need further angiogram -May need vascular surgery/podiatry consult for toe amputation. -Pain control with oral Tylenol as needed, oral [place] as needed, IV Dilaudid as needed, monitor for sedation Nicotine dependence -Counseled regarding smoking cessation -21 mg daily nicotine patch ordered The patient is admitted with an anticipated greater than 2 midnight stay as inpatient status for evaluation of acute limb ischemia. Surrogate decision-maker: Son CODE STATUS: Full code DVT prophylaxis: Heparin drip Anticipated discharge date: Pending clinical course Anticipated discharge place: Pending clinical course A total of 55 minutes was spent on the care of this complex patient more than 50% of the time was spent in counseling and care coordination. Past Medical History Past Medical History: Deep Vein Thrombosis (DVT), Vascular Disorder Additional Past Medical History / Comment(s): ulcerative wound on left foot, varicose veins, left inguinal hernia, DVT after needing a cast History of Any Multi-Drug Resistant Organisms: None Reported Additional Past Surgical History / Comment(s): Vein stripped left leg, angiog carmella, stents left calf Past Anesthesia/Blood Transfusion Reactions: No Reported Reaction Past Psychological History: No Psychological Hx Reported Smoking Status: Current some day smoker Past Alcohol Use History: Occasional Past Drug Use History: None Reported - Past Family History Father Family Medical History: Deep Vein Thrombosis (DVT) Sister(s) Family Medical History: Deep Vein Thrombosis (DVT) Medications and Allergies Home Medications Medication Instructions Recorded Confirmed Type Atorvastatin [Lipitor] 80 mg PO HS 08/11/20 03/15/24 History Aspirin 81 mg PO DAILY 07/31/21 03/15/24 History lisinopriL [Zestril] 5 mg PO DAILY PRN 10/04/23 03/15/24 History Rivaroxaban [Xarelto] 2.5 mg PO BID #60 tab 10/08/23 03/15/24 Rx Clopidogrel [Plavix] 75 mg PO DAILY@1200 03/15/24 03/15/24 History Allergies Allergy/AdvReac Type Severity Reaction Status Date / Time No Known Allergies Allergy Verified 03/15/24 11:25 Physical Exam Vitals: Vital Signs Temp Pulse Resp BP Pulse Ox 03/15/24 13:28 98 20 161/97 97 03/15/24 10:21 98.5 F 96 18 143/91 97 Intake and Output 03/15/24 03/15/24 03/15/24 06:59 14:59 22:59 Other: Weight 104.326 kg Results CBC & Chem 7: 03/15/24 10:48 03/15/24 10:48 Labs: Abnormal Lab Results - Last 24 Hours (Table) 03/15/24 Range/Units 10:48 Chloride 109 H (98-107) mmol/L C-Reactive Protein 1.6 H (<1.0) mg/dL
[2024-03-15] MEDS: NICOTINE 21MG/24HR PATCH TRANSDERM SCH (17:53)
[2024-03-15] MEDS: HYDROmorphone 1 MG/ML 1 ML SYRINGE IVP PRN (20:23)
[2024-03-15] MEDS: ATORVASTATIN 80 MG TAB PO SCH (20:23)
[2024-03-16] MEDS: HYDROcodone/APAP 5-325MG 1 EACH TAB PO PRN (02:03)
[2024-03-16] MEDS: ASPIRIN 81 MG PO SCH (08:49)
[2024-03-16] MEDS: SODIUM CHLORIDE 0.9% 1,000 ML IV SCH (11:40)
[2024-03-16] MEDS: CLOPIDOGREL 75 MG TAB PO SCH (11:46)
[2024-03-16] MEDS: LIDOCAINE 1% INJ 10MG/ML (20 ML MDV) SQ ONE (12:53)
[2024-03-16] MEDS: fentaNYL (PF) 50 MCG/1 ML VIAL IVP ONE (12:56)
[2024-03-16] MEDS: MIDAZOLAM 2 MG/2 ML VIAL IVP ONE (12:57)
[2024-03-16] MEDS: SODIUM CHLORIDE 0.9% 1,000 ML IV ONE (12:58)
--- NOTE | 2024-03-16 12:58 | P.PN ---
Subjective Progress Note Date: 03/16/24 Patient still complains of some soreness of his left lower extremity. Overall says pain is much better controlled with Dilaudid and [place] combination as needed. Plan is for angiogram today. Gen: In NAD, non-toxic HEENT: normocephalic, atraumatic, hearing acuity is intant, mucous membranes moist CVS: no pitting edema, Respiratory: symmetric chest expansion, no accessory muscle use, GI: soft, NTTP, ND, : no suprapubic tenderness, no CVA tenderness MSK/Derm: no rashes, cyanosis Neuro: CN II-XII intact, no motor weakness, Psych: cooperative, euthymic mood, judgment and insight is intact Hospital course: Patient is a 59-year-old male with history of peripheral arterial disease, hypertension, dyslipidemia, nicotine dependence presenting with left lower extremity pain. In the ED, temperature was 98.5, pulse 96, respiratory rate 18, blood pressure 143/91, saturating at 97% on room air. WBC 9.5, hemoglobin 16. 9, platelet 301, creatinine 0.73, CRP 1.6. Left lower extremity CTA shows o cclusion of left lower extremity superficial femoral artery extending from its origin through extensive graft, occlusion of left popliteal artery and tibioperoneal trunk, left peroneal artery at its origin demonstrates reconstitution extending throughout its length to its bifurcation at the ankle joint, anterior and posterior tibial arteries appear occluded. Patient started on heparin drip. Cardiology consulted. Patient being admitted for left lower extremity ischemia. Assessment/Plan: Acute left lower extremity ischemia Severe peripheral arterial disease status post previous stents Left SFA occlusion Dyslipidemia Hypertension -Continue heparin drip, monitor APTT and bleeding -Hold Xarelto -Continue aspirin 81 mg, Plavix 75 mg, atorvastatin 80 mg nightly, lisinopril 5 mg daily -Cardiology consulted, pending angiogram today -May need vascular surgery/podiatry consult for toe amputation. -Pain control with oral Tylenol as needed, oral [place] as needed, IV Dilaudid as needed, monitor for sedation -IV fluids at 75 cc/h Nicotine dependence -Counseled regarding smoking cessation -21 mg daily nicotine patch ordered The patient is admitted with an anticipated greater than 2 midnight stay as inpatient status for evaluation of acute limb ischemia. Surrogate decision-maker: Son CODE STATUS: Full code DVT prophylaxis: Heparin drip Anticipated discharge date: Pending clinical course Anticipated discharge place: Pending clinical course A total of 55 minutes was spent on the care of this complex patient more than 50% of the time was spent in counseling and care coordination. Objective - Vital Signs Vital signs: Vital Signs Temp 97.5 F L 03/16/24 07:45 Pulse 74 03/16/24 11:03 Resp 18 03/16/24 12:47 BP 138/42 03/16/24 12:47 Pulse Ox 98 03/16/24 11:03 FiO2 Intake & Output 03/15/24 03/16/24 03/16/24 18:59 06:59 18:59 Intake Total 241.936 Balance 241.936 Weight 104.326 kg Intake: Intake, IV Titration 241.936 Amount Heparin Sod,Pork in 0.45% 241.936 NaCl 25,000 unit In 0.45 % NaCl 1 250ml.bag @ 18 UNITS/KG/HR 18.779 mls/hr IV .[id number] [facility] Rx#: [id number] - Labs CBC & Chem 7: 03/15/24 10:48 03/15/24 10:48 Labs: Abnormal Lab Results - Last 24 Hours (Table) 03/15/24 03/16/24 Range/Units 20:39 07:42 APTT 74.8 H 76.4 H (22.0-30.0) sec
[2024-03-16] MEDS: HEPARIN SODIUM 1,000 UN/ML (10ML VL) IVP ONE (13:25)
[2024-03-16] MEDS ORDERED: ALTEPLASE 10 MG in SODIUM CHLORIDE 0.9% 90 ML IV ONE (13:50)
[2024-03-16] MEDS: IOPAMIDOL-250 100ML BTL INTRAARTER ONE (14:06)
--- NOTE | 2024-03-16 14:29 | IR ---
EXAMINATION TYPE: IR angio abdominal w runoff DATE OF EXAM: 03/16/2024 COMPARISON: NONE HISTORY: Fluoroscopy time. Fluoroscopy was provided to the referring clinician. [facility], , 03/16/2024 2:26 PM
[2024-03-16 14:46] LABS: Glucose,Whole Blood 85 mg/dL (70-110)
[2024-03-16] MEDS: ALPRAZolam 0.25 MG TAB PO PRN (15:27)
[2024-03-16] MEDS: fentaNYL (PF) 50 MCG/ML 2 ML AMP IVP STA ×2 (16:13→17:47)
[2024-03-16] MEDS ORDERED: NALOXONE 0.4 MG/ML 1 ML VIAL IV PRN (16:21)
[2024-03-16] MEDS: fentaNYL PCA 500 MCG/50 ML BAG IV PRN (17:50)
[2024-03-16] MEDS: HEPARIN SOD,PORK IN 0.45% NACL 25,000 UNIT in 0.45% NACL 1 250ML.BAG IV SCH (18:02)
[2024-03-16] MEDS: ALTEPLASE 10 MG in SODIUM CHLORIDE 0.9% 90 ML IV SCH (18:02)
--- NOTE | 2024-03-16 20:06 | P.PCN ---
Date of Procedure: 03/16/24 Operative Findings: Percutaneous peripheral arterial intervention Performing physician Ephraim Peter MD Procedure performed 1. Mechanical aspiration thrombectomy from the left SFA and left popliteal arteries using the penumbra device 2. Placement of tPA infusion catheter in the left SFA and left popliteal arteries 3. Left lower extremity angiogram Indication Acute limb ischemia of the left lower extremity. The patient is a 59-year-old gentleman who unfortunately continues to smoke with prior history of left SFA angioplasty and left common femoral artery endarterectomy presented to the hospital with left foot pain started about 5 days ago. He underwent a CTA which revealed occluded left SFA and occluded left popliteal with the occlusion of the arteries below the knee Approach Right common femoral artery Complications None Level of sedation Moderate with sedation next of 60 minutes Procedure description After obtaining informed consent the patient was brought to the cardiac Meter Reader Chief. The right common femoral artery was cannulated using micropuncture technique and a micropuncture wire passed easily then I placed a 6 [place] 11 cm sheath at the right common femoral artery which was subsequently exchanged into a 7 [place] 55 cm sheath using a 3 5 stiff Glidewire. Subsequently we did go up and over using a 3 5 stiff Glidewire and 5 [place] rim catheter and the wire was advanced all the way to the left SFA. Then I did advance the long sheath over the wire and dilator to the left common femoral artery. Left common femoral artery angiogram was performed and showed occluded SFA and occluded popliteal and the occlusion of the arteries below the knee which was filled using collater al. At that point I decided to pursue with mechanical aspiration thrombectomy using the monopolar device. Anticoagulation was initiated using heparin with continuous ACT monitoring. Subsequently across the acute occlusion of the left SFA and left popliteal using a 014 wire which was placed in the left peroneal artery. After that I did advance manually the penumbra aspiration thrombectomy slowly from the proximal to the distal portion. From the SFA to the popliteal. I was able to extract large thrombus. The flow in the left SFA was slightly better but not complete. Because of that I decided to place a tPA infusion catheter. The tPA infusion catheter was advanced over a 035 wire because I could not advance it over a 014 wire. The tPA infusion catheter was advanced all the way to the left popliteal and left SFA where it was connected to the tPA. The catheter was secured to the sheath using Tegaderm. The procedure was completed with no complication. Postprocedure management Continue tPA infusion per protocol Plan to pursue second look in the next 24 to 48 hours Consider vascular surgical consultation Follow-up with the patient
[2024-03-17 04:25] LABS: Basophils % (A) 0 %; Eosinophils % (A) 0 %; HCT 47.4 % (39.0-53.0); HGB 15.5 gm/dL (13.0-17.5); Lymphocytes # (A) 1.2 k/uL (1.0-4.8); Lymphocytes % (A) 9 %; MCH 32.1 pg (25.0-35.0); MCHC 32.7 g/dL (31.0-37.0); MCV 98.3 fL (80.0-100.0); Mean Platelet Volume 8.5; Monocytes # (A) 0.9 k/uL (0-1.0); Monocytes % (A) 7 %; Neutrophils # (A) 10.4 k/uL (1.3-7.7); Neutrophils % (A) 82 %; Platelet Count 187 k/uL (150-450); RBC 4.82 m/uL (4.30-5.90); RDW 13.1 % (11.5-15.5); WBC 12.6 k/uL (3.8-10.6)
[2024-03-17 04:56] LABS: African American GFR (CKD) >90 (>60 ml/min/1.73 sqM); Anion Gap 9 mmol/L; Blood Urea Nitrogen 13 mg/dL (9-20); Calcium 8.7 mg/dL (8.4-10.2); Carbon Dioxide 19 mmol/L (22-30); Chloride 108 mmol/L (98-107); Glucose 66 mg/dL (74-99); Non-African American GFR(CKD) >90 (>60 ml/min/1.73 sqM); Potassium 4.1 mmol/L (3.5-5.1); Sodium 136 mmol/L (137-145)
--- NOTE | 2024-03-17 07:09 | P.PN ---
Progress Note - Text Progress Note Date: 03/16/24 This is a very pleasant 59-year-old gentleman with a past medical history significant for smoking and lower extremities PAD with prior left femoral endarterectomy and balloon angioplasty and stenting of the left SFA and history of acute limb ischemia from August 2023 presented to the hospital began at this time with left lower extremity discomfort started about a week ago and he was at the diagnosed with acute limb ischemia with subsequent CTA of the left lower extremity showed occluded left SFA and occluded left popliteal and occlusion in the arteries below the knee. Subsequently the patient was taken to the cardiac Television Cameraman where he underwent an angiogram of the left lower extremity which confirmed the finding of the CTA and he underwent mechanical aspiration thrombectomy using double heparin with extraction of large thrombus from the left SFA/left popliteal arteries. Subsequently because no ideal lower good flow was achieved we placed a tPA infusion catheter in the left SFA and left popliteal arteries and he was started on local tPA infusion. March 16, 2024 I called last night to check on the patient and he was experiencing severe pain in the left lower extremity. I came in and assessed the patient in the intensive care unit. He was experiencing severe pain in the left foot and left ankle. The left calf was slightly tender but was not stiff. Apparently the patient started having the beginning of possibly compartment syndrome. His left foot was slightly dusky as well. I put a consult for vascular surgery for the evaluation of compartment syndrome meanwhile I am going to continue tPA infusion for now. We will continue monitoring PTT and EKG. I discussed also the case on the phone with Dr. Mobley and we both decided to keep the patient and monitor the patient overnight to reassess in the morning by the vascular surgery service and address the need for compartment syndrome surgery. Meanwhile the patient is not experiencing any other cardiac symptoms of any chest pain or chest discomfort or shortness of breath and his vitals are stable so far. The right groin is soft and nontender with no hematoma noted. Assessment Acute limb ischemia of the left lower extremity Possible compartment syndrome Smoking Plan Continue current medical regimen including tPA infusion Continue monitoring the PTT and hemoglobin Continue antiplatelet The patient to be addressed in the morning by the vascular surgery service for possible compartment syndrome
[2024-03-17] MEDS: PANTOPRAZOLE 40 MG/10 ML VIAL IVP SCH (08:36)
--- NOTE | 2024-03-17 10:04 | P.PN ---
Subjective Progress Note Date: 03/17/24 Patient reports much better pain control today after initiating PULL OUT OPERATOR pump yesterday. LLE appears less dusky than yesterday and now has dopplerable DP pulse. tPA infusion continues. Gen: In NAD, non-toxic HEENT: normocephalic, atraumatic, hearing acuity is intant, mucous membranes moist CVS: no pitting edema, Respiratory: symmetric chest expansion, no accessory muscle use, GI: soft, NTTP, ND, : no suprapubic tenderness, no CVA tenderness MSK/Derm: no rashes, cyanosis Neuro: CN II-XII intact, no motor weakness, Psych: cooperative, euthymic mood, judgment and insight is intact Hospital course: Patient is a 59-year-old male with history of peripheral arterial disease, hypertension, dyslipidemia, nicotine dependence presenting with left lower extremity pain. In the ED, temperature was 98.5, pulse 96, respiratory rate 18, blood pressure 143/91, saturating at 97% on room air. WBC 9.5, hemoglobin 16. 9, platelet 301, creatinine 0.73, CRP 1.6. Left lower extremity CTA shows occlusion of left lower extremity superficial femoral artery extending from its origin through extensive graft, occlusion of left popliteal artery and tibioperoneal trunk, left peroneal artery at its origin demonstrates reconstitution extending throughout its length to its bifurcation at the ankle joint, anterior and posterior tibial arteries appear occluded. Patient started on heparin drip. Cardiology consulted. Patient being admitted for left lower extremity ischemia. Assessment/Plan: Acute left lower extremity ischemia Severe peripheral arterial disease status post previous stents Left SFA occlusion Dyslipidemia Hypertension -Continue tPA till tuesday per cardiology -Hold Xarelto -Continue aspirin 81 mg, Plavix 75 mg, atorvastatin 80 mg nightly, lisinopril 5 mg daily -Cardiology consulted, appreciate recs -Vascular surgery consulted -Pain control with oral Tylenol as needed, oral [place] as needed, IV Dilaudid as needed, monitor for sedation -IV fluids at 75 cc/h Nicotine dependence -Counseled regarding smoking cessation -21 mg daily nicotine patch ordered The patient is admitted with an anticipated greater than 2 midnight stay as inpatient status for evaluation of acute limb ischemia. Surrogate decision-maker: Son CODE STATUS: Full code DVT prophylaxis: on tPA Anticipated discharge date: Pending clinical course Anticipated discharge place: Pending clinical course A total of 55 minutes was spent on the care of this complex patient more than 50% of the time was spent in counseling and care coordination. Objective - Vital Signs Vital signs: Vital Signs Temp 98.1 F 03/17/24 08:00 Pulse 95 03/17/24 08:00 Resp 19 03/17/24 08:00 BP 143/86 03/17/24 08:00 Pulse Ox 92 L 03/17/24 08:00 FiO2 Intake & Output 03/16/24 03/17/24 03/17/24 18:59 06:59 18:59 Intake Total 625 239.333 120 Output Total 700 450 350 Balance -75 -210.667 -230 Weight 104.326 kg 105.8 kg Intake: IV 575 150 Sodium Chloride 0.9% 1, 75 150 000 ml @ 75 mls/hr IV . [id number] [facility] Rx#:[id number] Intake, IV Titration 89.333 Amount Alteplase 10 mg In Sodium 89.333 Chloride 0.9% 90 ml @ 1 MG/HR 10 mls/hr IV .Q10H [facility] Rx#:[id number] Oral 50 120 Output: Urine 700 450 350 Other: Voiding Method Urinal Urinal - Labs CBC & Chem 7: 03/17/24 02:42 03/17/24 02:42 Labs: Abnormal Lab Results - Last 24 Hours (Table) 03/17/24 03/17/24 03/17/24 Range/Units 02:42 02:42 07:41 WBC 12.6 H (3.8-10.6) k/uL Neutrophils # 10.4 H (1.3-7.7) k/uL APTT 32.7 H (22.0-30.0) sec Sodium 136 L (137-145) mmol/L Chloride 108 H (98-107) mmol/L Carbon Dioxide 19 L (22-30) mmol/L Glucose 66 L (74-99) mg/dL
--- NOTE | 2024-03-17 11:29 | P.GSCN ---
History of Present Illness Consult date: 03/17/24 Reason for Consult: Concern for compartment syndrome left lower extremity. Requesting physician: Ephraim Peter History of present illness: Patient is a 59-year-old male with a longstanding history of lower extremity occlusive disease. Patient had previously undergone a left common femoral thromboendarterectomy which was followed by stenting of the superficial femoral artery. He was maintained on multiple anticoagulants and was doing well however 5 days prior to his presentation began to experience some left foot pain. This progressed to the point where he developed digital ischemic changes of the left foot. Once he presented the patient was taken by Dr. Peter for angiogram and thrombectomy/thrombolysis. The patient is evaluated to rule out the possibility of compartment syndrome after arterial flow had been reestablished by percutaneous method. Currently the patient is sitting in the ICU awake and alert and in no apparent distress. Past Medical History Past Medical History: Deep Vein Thrombosis (DVT), Vascular Disorder Additional Past Medical History / Comment(s): ulcerative wound on left foot, varicose veins, left inguinal hernia, DVT after needing a cast History of Any Multi-Drug Resistant Organisms: None Reported Additional Past Surgical History / Comment(s): Vein stripped left leg, angiogram, stents left calf Past Anesthesia/Blood Transfusion Reactions: No Reported Reaction Smoking Status: Current every day smoker - Past Family History Father Family Medical History: Deep Vein Thrombosis (DVT) Sister(s) Family Medical History: Deep Vein Thrombosis (DVT) Medications and Allergies Home Medications Medication Instructions Recorded Confirmed Type Atorvastatin [Lipitor] 80 mg PO HS 08/11/20 03/15/24 History Aspirin 81 mg PO DAILY 07/31/21 03/15/24 History lisinopriL [Zestril] 5 mg PO DAILY PRN 10/04/23 03/15/24 History Rivaroxaban [Xarelto] 2.5 mg PO BID #60 tab 10/08/23 03/15/24 Rx Clopidogrel [Plavix] 75 mg PO DAILY@1200 03/15/24 03/15/24 History Allergies Allergy/AdvReac Type Severity Reaction Status Date / Time No Known Allergies Allergy Verified 03/15/24 11:25 Surgical - Exam Osteopathic Statement: *. No significant issues noted on an osteopathic structural exam other than those noted in the History and Physical/Consult. Vital Signs Temp Pulse Resp BP Pulse Ox 98.5 F 96 18 143/91 97 03/15/24 10:21 03/15/24 10:21 03/15/24 10:21 03/15/24 10:21 03/15/24 10:21 The patient is examined in the intensive care unit. He is awake, alert in no apparent distress. The left lower extremity demonstrates a femoral pulse and the leg is warm all the way down to the mid foot level. Ischemic changes of the distal segment of the fourth toe was identified. The calf is soft and nontender to palpation. Patient is able to move his foot and sensation is present. Results - Labs 03/17/24 02:42 03/17/24 02:42 Abnormal Lab Results - Last 24 Hours (Table) 03/17/24 03/17/24 03/17/24 Range/Units 02:42 02:42 07:41 WBC 12.6 H (3.8-10.6) k/uL Neutrophils # 10.4 H (1.3-7.7) k/uL APTT 32.7 H (22.0-30.0) sec Sodium 136 L (137-145) mmol/L Chloride 108 H (98-107) mmol/L Carbon Dioxide 19 L (22-30) mmol/L Glucose 66 L (74-99) mg/dL Diabetes panel 03/17/24 Range/Units 02:42 Sodium 136 L (137-145) mmol/L Potassium 4.1 (3.5-5.1) mmol/L Chloride 108 H (98-107) mmol/L Carbon Dioxide 19 L (22-30) mmol/L BUN 13 (9-20) mg/dL Creatinine 0.71 (0.66-1.25) mg/dL Glucose 66 L (74-99) mg/dL Calcium 8.7 (8.4-10.2) mg/dL Calcium panel 03/17/24 Range/Units 02:42 Calcium 8.7 (8.4-10.2) mg/dL Pituitary panel 03/17/24 Range/Units 02:42 Sodium 136 L (137-145) mmol/L Potassium 4.1 (3.5-5.1) mmol/L Chloride 108 H (98-107) mmol/L Carbon Dioxide 19 L (22-30) mmol/L BUN 13 (9-20) mg/dL Creatinine 0.71 (0.66-1.25) mg/dL Glucose 66 L (74-99) mg/dL Calcium 8.7 (8.4-10.2) mg/dL Adrenal panel 03/17/24 Range/Units 02:42 Sodium 136 L (137-145) mmol/L Potassium 4.1 (3.5-5.1) mmol/L Chloride 108 H (98-107) mmol/L Carbon Dioxide 19 L (22-30) mmol/L BUN 13 (9-20) mg/dL Creatinine 0.71 (0.66-1.25) mg/dL Glucose 66 L (74-99) mg/dL Calcium 8.7 (8.4-10.2) mg/dL - Imaging Additional studies: CTA of the abdomen, pelvis and left lower extremity was reviewed. Assessment and Plan Assessment: 1: Acute thrombosis left superficial femoral artery currently undergoing tPA thrombolysis. 2: Status post stent placement left superficial femoral artery. 3: Current everyday smoker. 4: Status post left second toe amputation. 5: History of venous insufficiency status post venous intervention. Plan: 1: Agree with current therapy. The patient appears to be doing well and I would anticipate continued forward progress in this manner. 2: Discussion was held with the patient in reference to smoking and his need to stop completely. 3: Will reevaluate at your request. Time with Patient: Greater than 30
[2024-03-17] MEDS: HYDROmorphone 1 MG/ML 1 ML SYRINGE IVP PRN (17:51)
[2024-03-18 06:38] LABS: African American GFR (CKD) >90 (>60 ml/min/1.73 sqM); Anion Gap 3 mmol/L; Blood Urea Nitrogen 15 mg/dL (9-20); Calcium 8.7 mg/dL (8.4-10.2); Carbon Dioxide 25 mmol/L (22-30); Chloride 108 mmol/L (98-107); Glucose 100 mg/dL (74-99); Magnesium 1.9 mg/dL (1.6-2.3); Non-African American GFR(CKD) >90 (>60 ml/min/1.73 sqM); Potassium 3.5 mmol/L (3.5-5.1); Sodium 136 mmol/L (137-145)
[2024-03-18 06:45] LABS: Basophils % (A) 0 %; Eosinophils # (A) 0.2 k/uL (0-0.7); Eosinophils % (A) 2 %; HCT 44.7 % (39.0-53.0); HGB 15.3 gm/dL (13.0-17.5); Lymphocytes # (A) 1.4 k/uL (1.0-4.8); Lymphocytes % (A) 12 %; MCH 32.4 pg (25.0-35.0); MCHC 34.2 g/dL (31.0-37.0); MCV 94.7 fL (80.0-100.0); Mean Platelet Volume 8.7; Monocytes # (A) 0.9 k/uL (0-1.0); Monocytes % (A) 8 %; Neutrophils # (A) 8.7 k/uL (1.3-7.7); Neutrophils % (A) 77 %; Platelet Count 168 k/uL (150-450); RBC 4.71 m/uL (4.30-5.90); RDW 13.5 % (11.5-15.5); WBC 11.4 k/uL (3.8-10.6)
[2024-03-18] MEDS: SODIUM CHLORIDE 0.9% 500 ML 500 ML IV ONE (09:09)
--- NOTE | 2024-03-18 09:36 | P.PN ---
Subjective Progress Note Date: 03/18/24 Patient reports some more aching in the LLE today. It continues to appear mostly perfused with some duskiness in the great toe. Plan is to repeat angiogram today. Gen: In NAD, non-toxic HEENT: normocephalic, atraumatic, hearing acuity is intant, mucous membranes moist CVS: no pitting edema, Respiratory: symmetric chest expansion, no accessory muscle use, GI: soft, NTTP, ND, : no suprapubic tenderness, no CVA tenderness MSK/Derm: no rashes, cyanosis Neuro: CN II-XII intact, no motor weakness, Psych: cooperative, euthymic mood, judgment and insight is intact Hospital course: Patient is a 59-year-old male with history of peripheral arterial disease, hypertension, dyslipidemia, nicotine dependence presenting with left lower extremity pain. In the ED, temperature was 98.5, pulse 96, respiratory rate 18, blood pressure 143/91, saturating at 97% on room air. WBC 9.5, hemoglobin 16. 9, platelet 301, creatinine 0.73, CRP 1.6. Left lower extremity CTA shows occlusion of left lower extremity superficial femoral artery extending from its origin through extensive graft, occlusion of left popliteal artery and tibioperoneal trunk, left peroneal artery at its origin demonstrates reconstit ution extending throughout its length to its bifurcation at the ankle joint, anterior and posterior tibial arteries appear occluded. Patient started on heparin drip. Cardiology consulted. Patient being admitted for left lower extremity ischemia. Assessment/Plan: Acute left lower extremity ischemia Severe peripheral arterial disease status post previous stents Left SFA occlusion Dyslipidemia Hypertension -Continue tPA, heparin gtt. Monitor CBC. -Hold Xarelto -Continue aspirin 81 mg, Plavix 75 mg, atorvastatin 80 mg nightly, lisinopril 5 mg daily -Cardiology consulted, appreciate recs -Vascular surgery consulted -Pain control with oral Tylenol as needed, oral [place] as needed, IV Dilaudid as needed, monitor for sedation -IV fluids at 75 cc/h Nicotine dependence -Counseled regarding smoking cessation -21 mg daily nicotine patch ordered The patient is admitted with an anticipated greater than 2 midnight stay as inpatient status for evaluation of acute limb ischemia. Surrogate decision-maker: Son CODE STATUS: Full code DVT prophylaxis: on tPA Anticipated discharge date: Pending clinical course Anticipated discharge place: Pending clinical course A total of 55 minutes was spent on the care of this complex patient more than 50% of the time was spent in counseling and care coordination. Objective - Vital Signs Vital signs: Vital Signs Temp 98.4 F 03/18/24 04:00 Pulse 81 03/18/24 07:00 Resp 17 03/18/24 07:00 BP 149/94 03/18/24 07:00 Pulse Ox 96 03/18/24 07:00 FiO2 Intake & Output 03/17/24 03/18/24 03/18/24 18:59 06:59 18:59 Intake Total 710 79.333 Output Total 730 250 200 Balance -20 -170.667 -200 Weight 105.9 kg Intake: Intake, IV Titration 100 79.333 Amount Alteplase 10 mg In Sodium 100 79.333 Chloride 0.9% 90 ml @ 1 MG/HR 10 mls/hr IV .Q10H [facility] Rx#:[id number] Oral 610 Output: Urine 730 250 200 Other: Voiding Method Urinal Urinal # Voids 1 - Labs CBC & Chem 7: 03/18/24 05:58 03/18/24 05:58 Labs: Abnormal Lab Results - Last 24 Hours (Table) 03/18/24 03/18/24 Range/Units 05:58 05:58 WBC 11.4 H (3.8-10.6) k/uL Neutrophils # 8.7 H (1.3-7.7) k/uL Sodium 136 L (137-145) mmol/L Chloride 108 H (98-107) mmol/L Glucose 100 H (74-99) mg/dL
[2024-03-18] MEDS: MIDAZOLAM 2 MG/2 ML VIAL IVP ONE (09:43)
[2024-03-18] MEDS: fentaNYL (PF) 50 MCG/ML 2 ML AMP IVP ONE (09:45)
[2024-03-18] MEDS: LIDOCAINE 1% INJ 10MG/ML (20 ML MDV) SQ ONE (09:46)
[2024-03-18] MEDS: IOPAMIDOL-250 100ML BTL INTRAARTER ONE (10:10)
[2024-03-18] MEDS ORDERED: NALOXONE 0.4 MG/ML 1 ML VIAL IVP PRN (10:24)
[2024-03-18] MEDS: SODIUM CHLORIDE 0.9% 1,000 ML in EMPTY BAG 1 BAG IV SCH (13:58)
[2024-03-18] MEDS: APIXABAN 2.5 MG TABLET PO SCH (14:05)
--- NOTE | 2024-03-18 14:08 | IR ---
EXAMINATION TYPE: IR angio lower extremity LT DATE OF EXAM: 03/18/2024 10:30 AM COMPARISON: Pre Operative Images if available both CT/MRI or plain film CLINICAL INDICATION: Male, 59 years old with history of TPA CATHETER RECHECK, 3.3MINS FLT, 0.086GY; TECHNIQUE: IR angio lower extremity LT, multiple fluoroscopic images provided for procedure. Total fluoroscopy time: 3.3 seconds Total submitted images to PACS: 184 DAP: 19.3 mGym2 Gycm2 uGym2 cGycm2 or equivalent. FINDINGS: IMPRESSION: 1. Report was generated for administrative purposes only. 2. Please see the operative/procedural note for further details. [facility], , 03/18/2024 2:06 PM
--- NOTE | 2024-03-18 20:13 | P.PCN ---
Date of Procedure: 03/18/24 Operative Findings: Left lower extremity angiogram Performing physician Ephraim Peter MD Procedure performed 1. Second look (post tPA infusion) left lower extremity angiogram 2. Right common femoral artery angiogram. Indication The patient is a pleasant 59-year-old gentleman who was admitted to the hospital a few days ago with acute limb ischemia of the left lower extremity and underwent mechanical thrombectomy and subsequently the placement of infusion catheter in the left popliteal and left SFA. It has been 48 hours since the effusion was initiated and he was brought to undergo second look angiogram after tPA infusion Complications None Level of sedation Moderate with sedation length of 36 minutes Procedure description After obtaining an informed consent the patient was brought to the cardiac Red[facility]. I did place an 035 stiff Glidewire inside the infusion catheter and the infusion catheter was removed over the wire outside the body. Subsequently I did an injection through the sheath from the right common femoral artery and that revealed resolving most of the thrombus in the left peroneal artery as well as left popliteal and left SFA with overall reasonable results with very small residual thrombus and mild to moderate disease only. With that being said and what hematoma was noted in the right common femoral artery we decided to stop the tPA infusion at this point so I did replace the 55 cm 7 Russian sheath into 11 cm 7 Russian sheath over a 035 stiff Glidewire before a close the right common femoral artery using Angio-Seal with an excellent hemostasis. Conclusion Resolving of most thrombus from the left peroneal artery and left popliteal artery and left SFA with samaritan of the flow with only minor residual thrombus noted and mild to moderate disease only. Postprocedure management Continue triple therapy including aspirin and Plavix with very placement of low- dose Xarelto at 2.5 mg p.o. twice daily with Eliquis at 2.5 mg p.o. twice daily Smoking cessation Follow-up with the patient.
[2024-03-18] MEDS ORDERED: APIXABAN 2.5 MG TABLET PO SCH (21:00)
[2024-03-19 05:03] LABS: Basophils % (A) 0 %; Eosinophils # (A) 0.4 k/uL (0-0.7); Eosinophils % (A) 3 %; HCT 43.3 % (39.0-53.0); HGB 13.9 gm/dL (13.0-17.5); Lymphocytes # (A) 1.2 k/uL (1.0-4.8); Lymphocytes % (A) 10 %; MCH 31.3 pg (25.0-35.0); MCV 97.8 fL (80.0-100.0); Mean Platelet Volume 8.7; Monocytes # (A) 1.1 k/uL (0-1.0); Monocytes % (A) 10 %; Neutrophils # (A) 8.9 k/uL (1.3-7.7); Neutrophils % (A) 75 %; Platelet Count 182 k/uL (150-450); RBC 4.43 m/uL (4.30-5.90); RDW 13.1 % (11.5-15.5)
[2024-03-19 05:19] LABS: African American GFR (CKD) >90 (>60 ml/min/1.73 sqM); Anion Gap 2 mmol/L; Blood Urea Nitrogen 14 mg/dL (9-20); Calcium 8.5 mg/dL (8.4-10.2); Carbon Dioxide 28 mmol/L (22-30); Chloride 107 mmol/L (98-107); Glucose 96 mg/dL (74-99); Non-African American GFR(CKD) >90 (>60 ml/min/1.73 sqM); Potassium 3.7 mmol/L (3.5-5.1); Sodium 137 mmol/L (137-145)
[2024-03-19] MEDS: POTASSIUM CHLORIDE ER 20 MEQ TAB.ER PO SCH (06:02)
--- NOTE | 2024-03-19 09:47 | P.PN ---
Subjective Progress Note Date: 03/19/24 The patient is a 59-year-old male who is currently admitted with critical limb ischemia of his left lower extremity. Patient underwent mechanical aspiration thrombectomy with extraction of large thrombus from the left SFA and left popliteal arteries. Patient underwent tPA infusion catheter for 48 hours. Repeat angiogram was performed yesterday with Dr. Peter showing significant improvement, with only minor residual thrombus. Patient interviewed and examined resting comfortably in the ICU bed. He denies any chest pain chest pressure or difficulty breathing. He does have some discomfort in his left lower extremity but it has significantly improved. GENERAL: Well-appearing, well-nourished and in no acute distress. NECK: Supple without JVD or thyromegaly. LUNGS: Breath sounds clear to auscultation bilaterally. Respiration equal and unlabored. No wheezes, rales or rhonchi. HEART: Regular rate and rhythm without murmurs, rubs or gallops. S1 and S2 heard. EXTREMITIES: Normal range of motion, no edema in right lower extremity. Left lower extremity has +2 lower extremity edema, generalized. Redness noted with ischemic ulcer on left 4th toe. TELEMETRY: Sinus rhythm overnight LABS: WBC 12.0, hemoglobin 13.9, hematocrit 43.3, platelet 182, sodium 137, potassium 3.7, BUN 14, creatinine 0.76 IMPRESSION: Severe peripheral vascular disease Acute limb ischemia of left lower extremity Current smoker Hyperlipidemia Hypertension PLAN: Patient failed antiplatelet therapy with vascular dose of Xarelto, therefore he will be discharged on aspirin, Plavix, and Eliquis 2-1/2 mg twice daily Smoking cessation advised Further recommendations to be based on clinical course I am dictating on behalf of Dr Deng Plummer's history/physical and assessment/plan. Objective - Vital Signs Vital signs: Vital Signs Temp 98.4 F 03/19/24 08:00 Pulse 99 03/19/24 08:00 Resp 18 03/19/24 08:00 BP 124/78 03/19/24 08:00 Pulse Ox 98 03/19/24 08:00 FiO2 Intake & Output 03/18/24 03/19/24 03/19/24 18:59 06:59 18:59 Intake Total 565 75 Output Total 350 300 Balance 215 -225 Weight 103.1 kg Intake: IV 325 75 Sodium Chloride 0.9% 1, 75 75 000 ml In Empty Bag 1 bag @ 75 mls/hr IV .[id number] [facility] Rx#:[id number] Oral 240 Output: Urine 350 300 Other: Voiding Method Urinal Urinal Urinal - Labs CBC & Chem 7: 03/19/24 04:38 03/19/24 04:38 Labs: Abnormal Lab Results - Last 24 Hours (Table) 03/19/24 Range/Units 04:38 WBC 12.0 H (3.8-10.6) k/uL Neutrophils # 8.9 H (1.3-7.7) k/uL Monocytes # 1.1 H (0-1.0) k/uL
--- NOTE | 2024-03-19 15:18 | P.PN ---
Subjective Progress Note Date: 03/19/24 Pt reports improved pain profile in LLE. S/p removal of sheath and discontinuation of tpa and heparin infusions. Gen: In NAD, non-toxic HEENT: normocephalic, atraumatic, hearing acuity is intant, mucous membranes moist CVS: no pitting edema, Respiratory: symmetric chest expansion, no accessory muscle use, GI: soft, NTTP, ND, : no suprapubic tenderness, no CVA tenderness MSK/Derm: no rashes, cyanosis Neuro: CN II-XII intact, no motor weakness, Psych: cooperative, euthymic mood, judgment and insight is intact Hospital course: Patient is a 59-year-old male with history of peripheral arterial disease, hypertension, dyslipidemia, nicotine dependence presenting with left lower extremity pain. In the ED, temperature was 98.5, pulse 96, respiratory rate 18, blood pressure 143/91, saturating at 97% on room air. WBC 9.5, hemoglobin 16. 9, platelet 301, creatinine 0.73, CRP 1.6. Left lower extremity CTA shows occlusion of left lower extremity superficial femoral artery extending from its origin through extensive graft, occlusion of left popliteal artery and tibioperoneal trunk, left peroneal artery at its origin demonstrates reconstitution extending throughout its length to its bifurcation at the ankle joint, anterior and posterior tibial arteries appear occluded. Patient started on heparin drip. Cardiology consulted. Patient being admitted for left lower extremity ischemia. Assessment/Plan: Acute left lower extremity ischemia Severe peripheral arterial disease status post previous stents Left SFA occlusion Dyslipidemia Hypertension -Started apixaban 2.5mg BID -Continue aspirin 81 mg, Plavix 75 mg, atorvastatin 80 mg nightly, lisinopril 5 mg daily -Cardiology consulted, appreciate recs -Vascular surgery consulted -Pain control with oral Tylenol as needed, oral [place] as needed, IV Dilaudid as needed, monitor for sedation -IV fluids at 75 cc/h Nicotine dependence -Counseled regarding smoking cessation -21 mg daily nicotine patch ordered The patient is admitted with an anticipated greater than 2 midnight stay as inpatient status for evaluation of acute limb ischemia. Surrogate decision-maker: Ciaran CODE STATUS: Full code DVT prophylaxis: on tPA Anticipated discharge date: Pending clinical course Anticipated discharge place: Pending clinical course A total of 55 minutes was spent on the care of this complex patient more than 50% of the time was spent in counseling and care coordination. Objective - Vital Signs Vital signs: Vital Signs Temp 98.6 F 03/19/24 12:00 Pulse 103 H 03/19/24 12:00 Resp 14 03/19/24 12:00 BP 142/96 03/19/24 12:00 Pulse Ox 98 03/19/24 12:00 FiO2 Intake & Output 03/18/24 03/19/24 03/19/24 18:59 06:59 18:59 Intake Total 565 75 Output Total 350 300 Balance 215 -225 Weight 103.1 kg Intake: IV 325 75 Sodium Chloride 0.9% 1, 75 75 000 ml In Empty Bag 1 bag @ 75 mls/hr IV .[id number] [facility] Rx#:[id number] Oral 240 Output: Urine 350 300 Other: Voiding Method Urinal Urinal Urinal - Labs CBC & Chem 7: 03/19/24 04:38 03/19/24 04:38 Labs: Abnormal Lab Results - Last 24 Hours (Table) 03/19/24 Range/Units 04:38 WBC 12.0 H (3.8-10.6) k/uL Neutrophils # 8.9 H (1.3-7.7) k/uL Monocytes # 1.1 H (0-1.0) k/uL
[2024-03-20 06:06] LABS: HCT 41.2 % (39.0-53.0); HGB 13.7 gm/dL (13.0-17.5); MCH 32.2 pg (25.0-35.0); MCHC 33.2 g/dL (31.0-37.0); MCV 96.8 fL (80.0-100.0); Mean Platelet Volume 9.1; Platelet Count 222 k/uL (150-450); RBC 4.26 m/uL (4.30-5.90); RDW 13.5 % (11.5-15.5); WBC 11.2 k/uL (3.8-10.6)
[2024-03-20 06:29] LABS: African American GFR (CKD) >90 (>60 ml/min/1.73 sqM); Anion Gap 4 mmol/L; Blood Urea Nitrogen 14 mg/dL (9-20); Calcium 8.8 mg/dL (8.4-10.2); Carbon Dioxide 32 mmol/L (22-30); Chloride 103 mmol/L (98-107); Glucose 90 mg/dL (74-99); Non-African American GFR(CKD) >90 (>60 ml/min/1.73 sqM); Potassium 3.8 mmol/L (3.5-5.1); Sodium 139 mmol/L (137-145)
[2024-03-20] MEDS: POTASSIUM CHLORIDE ER 20 MEQ TAB.ER PO SCH (06:50)
--- NOTE | 2024-03-20 09:39 | P.PN ---
Subjective Progress Note Date: 03/20/24 The patient is a 59-year-old male who is currently admitted with critical limb ischemia of his left lower extremity. Patient underwent mechanical aspiration thrombectomy with extraction of large thrombus from the left SFA and left popliteal arteries. Patient underwent tPA infusion catheter for 48 hours. Repeat angiogram showed significant improvement, with only minor residual thrombus. Patient interviewed and examined resting comfortably in the ICU bed. He denies any chest pain chest pressure or difficulty breathing. He does have some discomfort in his left lower extremity but it has significantly improved. The patient continues to have significant redness on left lower extremity. Dr. Plummer to notify Dr. Peter in regards to lack of improvement over the last 24 hours. GENERAL: Well-appearing, well-nourished and in no acute distress. NECK: Supple without JVD or thyromegaly. LUNGS: Breath sounds clear to auscultation bilaterally. Respiration equal and unlabored. Bilateral inspiratory wheezes HEART: Regular rate and rhythm without murmurs, rubs or gallops. S1 and S2 heard. EXTREMITIES: Normal range of motion, no edema in right lower extremity. Left lower extremity has +2 lower extremity edema, generalized. Redness noted with ischemic ulcer on left 4th toe. TELEMETRY: Sinus rhythm overnight LABS: WBC 11.2, hemoglobin 13.7, hematocrit 41.2, platelet 222, sodium 139, potassium 3.8, BUN 14, creatinine 0.71 IMPRESSION: Severe peripheral vascular disease Acute limb ischemia of left lower extremity Current smoker Hyperlipidemia Hypertension PLAN: Patient may be downgraded to 3 [place] Continue triple anticoagulant/antiplatelet therapy Consider reconsulting vascular surgery as there has only been minimal improvement since his intervention Further recommendations to be based upon clinical course I am dictating on behalf of Dr Deng Plummer's history/physical and assessment /plan. Objective - Vital Signs Vital signs: Vital Signs Temp 98.1 F 03/20/24 03:32 Pulse 96 03/20/24 03:32 Resp 16 03/20/24 03:32 BP 139/84 03/20/24 03:32 Pulse Ox 98 03/20/24 03:32 FiO2 Intake & Output 03/19/24 03/20/24 03/20/24 18:59 06:59 18:59 Intake Total 500 Output Total 350 250 Balance 150 -250 Weight 103.1 kg Intake: Oral 500 Output: Urine 350 250 Other: Voiding Method Urinal Urinal - Labs CBC & Chem 7: 03/20/24 05:32 03/20/24 05:32 Labs: Abnormal Lab Results - Last 24 Hours (Table) 03/20/24 03/20/24 Range/Units 05:32 05:32 WBC 11.2 H (3.8-10.6) k/uL RBC 4.26 L (4.30-5.90) m/uL Carbon Dioxide 32 H (22-30) mmol/L
--- NOTE | 2024-03-20 10:36 | P.PN ---
Subjective Progress Note Date: 03/20/24 Principal diagnosis: Left lower extremity peripheral arterial disease, acute ischemia Patient is seen and examined today as a follow-up requested by cardiology. Patient is status post left lower extremity angiogram, thrombectomy of left SFA and left popliteal arteries and tPA infusion. Patient states pain in foot has improved, as well as coloring. Still has pain in his toes. He is afebrile. Sensorimotor intact. Objective - Vital Signs Vital signs: Vital Signs Temp 98.1 F 03/20/24 03:32 Pulse 96 03/20/24 03:32 Resp 16 03/20/24 03:32 BP 139/84 03/20/24 03:32 Pulse Ox 98 03/20/24 03:32 FiO2 Intake & Output 03/19/24 03/20/24 03/20/24 18:59 06:59 18:59 Intake Total 500 Output Total 350 250 Balance 150 -250 Weight 103.1 kg Intake: Oral 500 Output: Urine 350 250 Other: Voiding Method Urinal Urinal - Exam General appearance: The patient is alert, oriented, appears in no acute distres s. HET: Head is normocephalic and atraumatic. Neck: Supple. Heart: Regular. Lungs: Equal expansion, normal respiratory effort. Abdomen: Soft, nondistended. Extremities: Bilateral palpable femoral pulses. Left foot with erythema, swelling, warm to the touch with brisk capillary refill. Multiphasic PT and DP signal. Great toe with grayish discoloration of distal tip to midway down, warm to the touch, tender to palpation. Second and third toe previous amputation. Fourth toe distal tip with dry gangrene, malodorous. Neurological: No focal deficits. Strength and sensation are grossly intact. - Labs CBC & Chem 7: 03/20/24 05:32 03/20/24 05:32 Labs: Abnormal Lab Results - Last 24 Hours (Table) 03/20/24 03/20/24 Range/Units 05:32 05:32 WBC 11.2 H (3.8-10.6) k/uL RBC 4.26 L (4.30-5.90) m/uL Carbon Dioxide 32 H (22-30) mmol/L Assessment and Plan Assessment: 1: Acute thrombosis left superficial femoral artery status post thrombectomy and tPA thrombolysis 2. Dry gangrene left fourth toe 3: Status post stent placement left superficial femoral artery. 4: Current everyday smoker. 5: Status post left second toe amputation. 5: History of venous insufficiency status post venous intervention. Plan: Patient's left foot with reperfusion pain and redness. Great toe with reperfusion improvement. Dry gangrene of the fourth toe does not require any emergent or urgent intervention. Will allow to demarcate. Can follow-up with vascular surgery following discharge. Thank you for this consultation. Dr. Oconnor I performed a history and examination of this patient, discussed the same with the dictator. I agree with the dictator's note ,documented as a scribe. Any additional findings or plans will be noted.
--- NOTE | 2024-03-20 11:46 | P.PN ---
Subjective Progress Note Date: 03/20/24 59-year-old male with history of peripheral arterial disease, hypertension, dyslipidemia, nicotine dependence presenting with left lower extremity pain. In the ED, T 98.5, HR 96, RR 18, BP 143/91, 97% on RA. CBC, Coag panel, CMP significant for Cl 109. CRP 1.6. LLE CTA shows occlusion of LLE superficial femoral artery extending from its origin through extensive graft, occlusion of left popliteal artery and tibioperoneal trunk, left peroneal artery at its origin demonstrates reconstitution extending throughout its length to its bifurcation at the ankle joint, anterior and posterior tibial arteries appear occluded. Patient was started on heparin drip. Cardiology consulted. Patient being admitted for left lower extremity ischemia. Underwent LLE angiogram, mechanical aspiration thrombectomy from the left SFA and left popliteal arteries using the penumbra device and placement of tPA infusion catheter in the left SFA and left popliteal arteries on 03/16. Underwent second look post tPA infusion on 03/18 which showed resolving thrombus from the left peroneal artery and left popliteal artery and left SFA with denominational of the flow with only minor residual thrombus noted and mild to moderate disease. 03/20 Patient was seen and examined. LLE pain well controlled. CBC and BMP significant for WBC 11.2, RBC 4.26, bicarb 32. General: non toxic, no distress, appears at stated age Derm: warm, dry Head: atraumatic, normocephalic, symmetric Eyes: EOMI, no lid lag, anicteric sclera Mouth: no lip lesion, mucus membranes moist Cardiovascular: no pitting edema Lungs: breathing comfortably, no accessory muscle use Ext: palomo discoloration of distal tip of the first toe. Second and third toe p revious amputation. Fourth toe distal tip with dry gangrene Neuro: no focal neuro deficits Psych: Alert, oriented, appropriate affect Based on my assessment of this patient, this patient meets a high complexity level of care. Acute left lower extremity ischemia: ASA 81 mg PO QD. Eliquis 2.5 mg PO BID. Lipitor [address] Plummer believed the lower extremity needs to be amputated. Vascular Sx does not plan on any surgical intervention at this time. Severe peripheral arterial disease status post previous stents Left SFA occlusion Dyslipidemia: Lipitor as above. Hypertension: Lisinopril 5 mg PO QD PRN HTN. Nicotine dependence: Nicotine patch 21mg/24H patch. Pain control: Tylenol 650 mg PO Q6H PRN, [place] 5 Q4H PRN, Dialudid 1 mg IV Q2H PRN. CODE STATUS: FULL CODE. DVT Prophylaxis: Eliquis PO. GI Prophylaxis: Protonix IV. Designated medical POA if patient is not able to make medical decisions for themselves: I have reviewed the following inside sales consultant notes: I have reviewed the results of the following tests: CBC, BMP. I have ordered the following tests: I have discussed the care of this patient with the following independent historian: I have independently interpreted the following test below: CBC, BMP. I have discussed the management of this patient with the following physician: Objective - Vital Signs Vital signs: Vital Signs Temp 98.1 F 03/20/24 03:32 Pulse 96 03/20/24 03:32 Resp 16 03/20/24 03:32 BP 139/84 03/20/24 03:32 Pulse Ox 98 03/20/24 03:32 FiO2 Intake & Output 03/19/24 03/20/24 03/20/24 18:59 06:59 18:59 Intake Total 500 Output Total 350 250 Balance 150 -250 Weight 103.1 kg Intake: Oral 500 Output: Urine 350 250 Other: Voiding Method Urinal Urinal - Labs CBC & Chem 7: 03/20/24 05:32 03/20/24 05:32 Labs: Abnormal Lab Results - Last 24 Hours (Table) 03/20/24 03/20/24 Range/Units 05:32 05:32 WBC 11.2 H (3.8-10.6) k/uL RBC 4.26 L (4.30-5.90) m/uL Carbon Dioxide 32 H (22-30) mmol/L
[2024-03-20 16:49] VITALS: BP 127/83; PULSE 87; RESP 17; TEMP 98.7
--- NOTE | 2024-03-27 11:57 | CDI ---
Documentation Clarification Form Date: 03/27/2024 11:24:09 AM From: Ella Catalan RN, CCDS Phone: [phone] Admit Date: 03/15/2024 02:50:00 PM Patient Name: Jose Martin Ch Visit Number: [id number] Discharge Date: 03/20/2024 06:00:00 PM ATTENTION: The Clinical Documentation Specialists (CDI) and [facility] Coding Staff appreciate your assistance in clarifying documentation. Please respond to the clarification below the line at the bottom and electronically sign. The CDI & [facility] Coding staff will review the response and follow-up if needed. Please note: Queries are made part of the Legal Health Record. If you have any questions, please contact the author of this message via ITS. Doctor Ephraim Peter Possible compartment syndrome is documented in the progress notes. Clarification is requested. Patient history/risk factors: PAD, HTN, smoker, HLD and prior left lower extremity stenting and multiple left toe amputations. Presented with cool foot for 4 days along with necrotic painful toe. Admitted with acute left lower extremity ischemia. Clinical Indicators: 03/15 CTA LLE: There is redemonstration of occlusion of the left lower extremity superficial femoral artery extending from its origin through its stent graft. There is occlusion of the left popliteal artery and tibioperoneal trunk. The left peroneal artery at its origin demonstrates reconstitution extending throughout its length to its bifurcation at the ankle joint. The anterior and posterior tibial arteries appear occluded. 03/15 Cardiology: "Distal aspect of foot appears to be somewhat dusky." 03/17 Cardiology: "Acute limb ischemia of the left lower extremity. The patient to be addressed in the morning by the vascular surgery service for possible compartment syndrome." 03/17 Vascular surgery consult: "Concern for compartment syndrome left lower extremity. The patient is evaluated to rule out the possibility of compartment syndrome after arterial flow had been reestablished by percutaneous method. Acute thrombosis left superficial femoral artery currently undergoing tPA thrombolysis. Agree with current therapy." 03/17 IM: "LLE appears less dusky than yesterday and now has doppler able DP pulse. tPA infusion continues." 03/19 Cardiology: "Left lower extremity has +2 lower extremity edema, generalized." Treatment: 03/16 s/p mechanical aspiration thrombectomy from the left SFA and left popliteal arteries using the [place]umb[place] device and placement of tPA infusion catheter in the left SFA and left popliteal arteries; 03/18 s/p second look (post tPA infusion) left lower extremity angiogram. Right common femoral artery angiogram; Alteplase 10mg titrated 03/16-03/19 Please clarify the diagnosis of possible compartment syndrome [ ] Compartment syndrome ruled in [ ] Compartment syndrome ruled out [ ] No additional diagnosis/Not clinically significant [ ] Unable to determine [ ] Other, please specify MTDD
== END 2024-03-20 18:00 | disposition home or self-care (01) | DRG 271 ==
LOC: EC 10:13 → 3SCARD 14:50 → 2SICU 03-16 14:00
PROVIDERS: ADMIT Student in an Organized Health Care Education/Training Program; ATTEND Student in an Organized Health Care Education/Training Program
PROC: 3E03317 Introduction of Other Thrombolytic into Peripheral Vein, Percutaneous Approach (ICD-10-PCS; principal; 2024-03-16 07:30)
PROC: 04CN3ZZ Extirpation of Matter from Left Popliteal Artery, Percutaneous Approach (ICD-10-PCS; principal; 2024-03-16 07:30)
PROC: 04CL3ZZ Extirpation of Matter from Left Femoral Artery, Percutaneous Approach (ICD-10-PCS; principal; 2024-03-16 07:30)
PROC: B41G1ZZ Fluoroscopy of Left Lower Extremity Arteries using Low Osmolar Contrast (ICD-10-PCS; principal; 2024-03-16 07:30)
PROC: B41F1ZZ Fluoroscopy of Right Lower Extremity Arteries using Low Osmolar Contrast (ICD-10-PCS; 2024-03-18)
DX: I70.262 Atherosclerosis of native arteries of extremities with gangrene, left leg (principal); I74.3 Embolism and thrombosis of arteries of the lower extremities; E78.5 Hyperlipidemia, unspecified; F17.210 Nicotine dependence, cigarettes, uncomplicated; I10 Essential (primary) hypertension; Z79.82 Long term (current) use of aspirin; Z79.899 Other long term (current) drug therapy; Z89.429 Acquired absence of other toe(s), unspecified side; Z79.01 Long term (current) use of anticoagulants; Z71.6 Tobacco abuse counseling; Z79.02 Long term (current) use of antithrombotics/antiplatelets
CPT/HCPCS: 36247; 36415; 37184; 37211; 37214; 75710; 80048; 80053; 83605; 83735; 85025; 85027; 85610; 85730; 86140; 93005; 96365; 96366; 96376; 99285

== ENCOUNTER → 2024-08-07 | Outpatient (CLI) | payer BC ==
--- NOTE | 2024-08-07 12:20 | CT ---
EXAMINATION TYPE: CT angio abd aorta w/Runoff CT abdomen and pelvis without contrast. CT angiogram abdomen and pelvis with contrast. DATE OF EXAM: 08/07/2024 12:09 PM COMPARISON: 03/15/2020 4:00 PM on the right. 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 Stent placed in left calf. Hx of toes 2 and 3 amputated. TECHNIQUE: CT angio abd aorta w/Runoff CT noncontrast abdomen pelvis and bilateral lower extremity followed by CT angiogram abdomen and pelv is and bilateral lower extremities. Multiple thin slice sub-millimeter images were obtained before and after administration of contrast. 3-D reconstructed images and maximum intensity projection images were obtained. CT angio abd aorta w/Runoff CT Contrast: Contrast used:100 ml mL of Isovue 370 with IV Contrast, Oral contrast used: None CT DLP: 2744.8 mGycm, Automated exposure control for dose reduction was used. FINDINGS: CTA Abdomen and pelvis: The abdominal aorta does not demonstrate aneurysmal dilatation. Atherosclero tic plaquing is identified within the abdominal aorta. The origins of the superior mesenteric artery , renal arteries, inferior mesenteric artery, and celiac axis are patent. The iliac vessels are norm al in morphology there are 2 renal arteries bilaterally. CTA Lower extremities: Right: The common femoral and superficial femoral arteries are patent. The popliteal artery is patent . Anterior and posterior tibial arteries as well as the peroneal artery are patent. Anterior and post erior tibial arteries cross the ankle. Varicosities are seen within the left lower extremity subcutan eous changes tissues. Left: The common femoral artery is patent. There is occlusion of the superficial femoral artery exten ding just past its origin to the stent graft without contrast only seen in the vascular structures. T he posterior tibial arteries and vessels of the leg are diminutive. There may be some contrast within the posterior tibial artery which crosses the ankle anterior tibial artery is not definitively visua lized. Varicosities are seen within the left lower extremity subcutaneous changes tissues. LOWER CHEST: No evidence of focal consolidation, pneumothorax or pleural effusion. LIVER: Unremarkable GALLBLADDER AND BILE DUCTS: Unremarkable. PANCREAS: Unremarkable. SPLEEN: Unremarkable. ADRENAL GLANDS: Unremarkable. KIDNEYS AND URETERS: No evidence of hydronephrosis or renal calculus. The ureters are unremarkable. PELVIS BLADDER: Unremarkable REPRODUCTIVE: Unremarkable. ABDOMEN & PELVIS STOMACH AND BOWEL: No evidence of bowel obstruction. Appendix normal. PERITONEUM: No evidence of pneumoperitoneum or free fluid. VASCULATURE: No evidence of aortic aneurysm. MUSCULOSKELETAL: No acute osseous abnormalities LYMPH NODES: No gross evidence for lymphadenopathy. SOFT TISSUE/ABDOMINAL WALL: Fat-containing left inguinal hernia. IMPRESSION: 1. Similar Occlusion of the left superficial femoral artery just past its origin extending to the st ent graft which is occluded and with reconstitution of the some diminutive small artery leg vessels. The posterior tibial arteries diminutive and may be patent crossing the ankle. 2. 2 vessels cross the right ankle joint. No evidence for high-grade stenosis or occlusion of the ri ght lower externally. 3. No evidence for dissection or aneurysm of the aorta. 4. Fat-containing inguinal hernia. [facility], , 08/07/2024 12:17 PM
== END | disposition home or self-care (01) ==
LOC: RADCTMAIN 10:59
PROVIDERS: ATTEND Internal Medicine Interventional Cardiology
DX: I71.20 Thoracic aortic aneurysm, without rupture, unspecified (principal); K40.90 Unilateral inguinal hernia, without obstruction or gangrene, not specified as recurrent
CPT/HCPCS: 75635; Q9967

== ENCOUNTER 2024-12-20 05:41 | Day surgery (SDC) | payer BC ==
[2024-12-19 09:42] VITALS: BMI 31.1
[2024-12-20] MEDS ORDERED: ALPRAZolam 0.25 MG TAB PO PRN (06:00)
[2024-12-20] MEDS: EMPTY BAG 1 BAG with SODIUM CHLORIDE 0.9% 1,000 ML IV SCH (06:14)
[2024-12-20] MEDS: IV FLUID CONTINUATION 1,000 ML IV ONE (06:16)
[2024-12-20 06:37] LABS: Basophils # (A) 0.06 10*3/uL (0.00-0.10); Basophils % (A) 0.7 %; Eosinophils # (A) 0.29 10*3/uL (0.04-0.35); Eosinophils % (A) 3.5 %; HCT 49.1 % (39.6-50.0); HGB 16.8 g/dL (13.0-17.0); Lymphocytes # (A) 1.97 10*3/uL (0.90-5.00); Lymphocytes % (A) 23.7 %; MCH 32.3 pg (27.0-32.0); MCHC 34.2 g/dL (32.0-37.0); MCV 94.4 fL (80.0-97.0); Monocytes # (A) 0.76 10*3/uL (0.20-1.00); Monocytes % (A) 9.1 %; Neutrophils # (A) 5.20 10*3/uL (1.80-7.70); Neutrophils % (A) 62.6 %; Platelet Count 277 10*3/uL (140-440); RBC 5.20 10*6/uL (4.40-5.60); RDW 12.7 % (11.5-14.5); WBC 8.31 10*3/uL (4.50-10.00)
[2024-12-20 06:55] LABS: African American GFR (CKD) >90 (>60 ml/min/1.73 sqM); Anion Gap 10 mmol/L; Blood Urea Nitrogen 11 mg/dL (9-20); Calcium 9.5 mg/dL (8.4-10.2); Carbon Dioxide 24 mmol/L (22-30); Chloride 105 mmol/L (98-107); Glucose 98 mg/dL (74-99); Non-African American GFR(CKD) >90 (>60 ml/min/1.73 sqM); Potassium 4.2 mmol/L (3.5-5.1); Sodium 139 mmol/L (137-145)
[2024-12-20] MEDS: HYDROcodone/APAP 5-325MG 1 EACH TAB PO STA (07:02)
[2024-12-20] MEDS: fentaNYL (PF) 50 MCG/1 ML VIAL IVP ONE (07:39)
[2024-12-20] MEDS: MIDAZOLAM 2 MG/2 ML VIAL IVP ONE ×3 (07:39→08:15)
[2024-12-20] MEDS: LIDOCAINE 1% INJ 10MG/ML (20 ML MDV) SQ ONE (07:41)
[2024-12-20] MEDS: HEPARIN SODIUM,PORCINE 10,000 UNIT in SODIUM CHLORIDE 0.9% 1,000 ML IRRIGATION ONE (07:45)
[2024-12-20] MEDS: HYDROmorphone 0.5 MG/0.5 ML SYRINGE IVP ONE ×2 (07:49→08:37)
[2024-12-20] MEDS: HEPARIN SODIUM 1,000 UN/ML (10ML VL) IVP ONE (07:49)
[2024-12-20] MEDS: IOPAMIDOL-370 100ML BTL INJ ONE (10:00)
[2024-12-20] MEDS ORDERED: NALOXONE 0.4 MG/ML 1 ML VIAL IVP PRN (10:17)
--- NOTE | 2024-12-20 10:22 | P.PCN ---
Date of Procedure: 12/20/24 Operative Findings: PERCUTANEOUS PERIPHERAL INTERVENTION Performing physician Ephraim Peter M.D. Procedure performed 1. Attempted crossing the ASSEMBLY LINE ROBOT OPERATOR of the left SFA and left popliteal 2. Placement of tPA infusion catheter at the left SFA with adjunctive use of IVUS 3. Left lower extremity angiogram 4. Ultrasound-guided access of the right common femoral artery Indication ALI of the left lower extremity Approach Right common femoral artery Complications None Level of sedation Moderate with a sedation time of 124 minutes Procedure description After obtaining informed consent the patient was brought to the cardiac Gas Torch Brazier. The right common femoral artery was cannulated using micropuncture [place] under ultrasound guidance a micropuncture wire passed easily then I placed a 6 Mauritian 70 cm sheath at the right common femoral artery after the right common femoral artery was dilated using 7 Mauritian dilator. I was able to go up and over using a 035 stiff Glidewire with the backup support of 5 Mauritian rim catheter. Subsequently I did left lower extremity angiogram which revealed the occlusion of the left SFA by the common femoral artery bifurcation and occluded left popliteal with only one-vessel runoff with peroneal. Attempting crossing the ASSEMBLY LINE ROBOT OPERATOR was unsuccessful because the wire was going behind the stent in the distal left SFA. At that point I decided to place an infusion catheter giving that the patient started experiencing the symptoms 2 weeks ago and also there was blood coming from the catheter at the mid left SFA. The patient will be brought the following day for second look angiogram and possible balloon angioplasty again with adjunctive use of reentry devices. Postprocedure management 1. Dual antiplatelet therapy 2. Aggressive cholesterol control 3. Risk factors modification 4. Follow-up with the patient 5. Second look angiogram tomorrow
[2024-12-20 10:33] LABS: Glucose,Whole Blood 95 mg/dL (70-110)
[2024-12-20] MEDS: SODIUM CHLORIDE 0.9% 1,000 ML in EMPTY BAG 1 BAG IV SCH (10:36)
[2024-12-20] MEDS: ALTEPLASE 10 MG in SODIUM CHLORIDE 0.9% 90 ML IA ONE (10:36)
[2024-12-20] MEDS: HYDROcodone/APAP 5-325MG 1 EACH TAB PO PRN (11:12)
[2024-12-20] MEDS: HEPARIN SOD,PORK IN 0.45% NACL 25,000 UNIT in 0.45% NACL 1 250ML.BAG IV SCH (13:12)
[2024-12-20 13:27] LABS: Basophils # (A) 0.05 10*3/uL (0.00-0.10); Basophils % (A) 0.6 %; Eosinophils # (A) 0.17 10*3/uL (0.04-0.35); Eosinophils % (A) 2.1 %; HCT 47.5 % (39.6-50.0); HGB 16.3 g/dL (13.0-17.0); Lymphocytes # (A) 1.82 10*3/uL (0.90-5.00); Lymphocytes % (A) 22.2 %; MCH 32.3 pg (27.0-32.0); MCHC 34.3 g/dL (32.0-37.0); MCV 94.2 fL (80.0-97.0); Monocytes # (A) 0.63 10*3/uL (0.20-1.00); Monocytes % (A) 7.7 %; Neutrophils # (A) 5.52 10*3/uL (1.80-7.70); Neutrophils % (A) 67.2 %; Platelet Count 251 10*3/uL (140-440); RBC 5.04 10*6/uL (4.40-5.60); RDW 13.0 % (11.5-14.5); WBC 8.21 10*3/uL (4.50-10.00)
[2024-12-20 13:47] LABS: African American GFR (CKD) >90 (>60 ml/min/1.73 sqM); Blood Urea Nitrogen 9 mg/dL (9-20); Non-African American GFR(CKD) >90 (>60 ml/min/1.73 sqM)
[2024-12-20 13:52] LABS: INR 1.0 (<1.2); Prothrombin Time 11.0 sec (10.0-12.5)
--- NOTE | 2024-12-20 14:35 | IR ---
Fluoroscopy INDICATION: Pain FINDINGS: Fluoroscopy time: 48.9 minutes Total dose area product (DAP) in uGy*m?, mGy*cm? (or similar): 7.34 Images obtained: 142. Images document arterial angiography IMPRESSION: 1. Documentation of fluoroscopy. [facility], , 12/20/2024 2:33 PM
[2024-12-20 15:22] LABS: Fibrinogen 452.0 mg/dL (200-500)
[2024-12-20] MEDS: HYDROmorphone 1 MG/ML 1 ML SYRINGE IVP PRN (16:50)
[2024-12-20] MEDS: ATORVASTATIN 80 MG TAB PO SCH (21:04)
[2024-12-21 04:01] LABS: Basophils # (A) 0.04 10*3/uL (0.00-0.10); Basophils % (A) 0.4 %; Eosinophils # (A) 0.16 10*3/uL (0.04-0.35); Eosinophils % (A) 1.6 %; HCT 46.3 % (39.6-50.0); HGB 15.8 g/dL (13.0-17.0); Lymphocytes # (A) 1.62 10*3/uL (0.90-5.00); Lymphocytes % (A) 15.7 %; MCH 32.8 pg (27.0-32.0); MCHC 34.1 g/dL (32.0-37.0); MCV 96.1 fL (80.0-97.0); Monocytes # (A) 1.11 10*3/uL (0.20-1.00); Monocytes % (A) 10.8 %; Neutrophils # (A) 7.37 10*3/uL (1.80-7.70); Neutrophils % (A) 71.3 %; Platelet Count 228 10*3/uL (140-440); RBC 4.82 10*6/uL (4.40-5.60); RDW 12.9 % (11.5-14.5); WBC 10.32 10*3/uL (4.50-10.00)
[2024-12-21 04:09] LABS: Fibrinogen 265.0 mg/dL (200-500); INR 1.1 (<1.2); Prothrombin Time 11.7 sec (10.0-12.5)
[2024-12-21] MEDS: fentaNYL (PF) 50 MCG/ML 2 ML AMP IVP ONE (07:45)
[2024-12-21] MEDS: MIDAZOLAM 2 MG/2 ML VIAL IVP ONE ×3 (07:45→09:48)
[2024-12-21] MEDS: IV FLUID CONTINUATION 1,000 ML IV ONE ×2 (07:46→10:31)
[2024-12-21] MEDS: HEPARIN SODIUM,PORCINE (1 ML) 2,500 UNIT in SODIUM CHLORIDE 0.9% 250 ML IRRIGATION ONE (07:46)
[2024-12-21] MEDS: HEPARIN SODIUM (1,000 UNIT/ML) 1,000 UNIT in SODIUM CHLORIDE 0.9% 1,000 ML IRRIGATION ONE (07:46)
[2024-12-21] MEDS: HEPARIN SODIUM 1,000 UN/ML (10ML VL) IVP ONE ×2 (08:10→09:57)
[2024-12-21] MEDS: HYDROmorphone 0.5 MG/0.5 ML SYRINGE IVP ONE ×3 (08:14→09:48)
[2024-12-21] MEDS: FLUMAZENIL 0.1 MG/ML 5 ML VIAL IVP ONE (09:29)
[2024-12-21] MEDS ORDERED: PROPOFOL 10 MG/ML 20 ML VIAL IV ONE (09:54)
[2024-12-21] MEDS ORDERED: KETAMINE HCL IN 0.9 % NACL 50 MG/5 ML SYRINGE ONE (09:54)
[2024-12-21] MEDS: NITROGLYCERIN 1000MCG/10ML SYRINGE INTRAARTER ONE ×3 (10:31→11:16)
[2024-12-21] MEDS: niCARdipine Syringe (1,000 mcg/10 mL) INTRAARTER ONE ×3 (10:32→11:16)
[2024-12-21] MEDS: IOPAMIDOL-370 100ML BTL INJ ONE (11:19)
[2024-12-21 11:32] LABS: African American GFR (CKD) >90 (>60 ml/min/1.73 sqM); Non-African American GFR(CKD) >90 (>60 ml/min/1.73 sqM)
[2024-12-21] MEDS: CLOPIDOGREL 75 MG TAB PO SCH (11:46)
[2024-12-21] MEDS: ASPIRIN 81 MG PO SCH (11:46)
[2024-12-21] MEDS: SODIUM CHLORIDE 0.9% 1,000 ML IV SCH (11:54)
--- NOTE | 2024-12-21 13:07 | P.PCN ---
Date of Procedure: 12/21/24 Operative Findings: PERCUTANEOUS PERIPHERAL ARTERIAL INTERVENTION Performing physician Ephraim Peter M.D. Procedure performed 1. Removal of tPA infusion catheter from the left SFA 2. Successful recanalizing acutely occluded left SFA and left popliteal and left tibioperoneal trunk and left peroneal arteries 3. Adjunctive use of IVUS and adjunctive use of [place] device and also adjunctive use of the reentry device 4. Successful balloon angioplasty of the left SFA and left popliteal and left tibioperoneal trunk and left peroneal arteries 5. Second Look angiogram of the left lower extremity 6. Right common femoral artery angiogram Indication Acute limb ischemia of the left lower extremity. Please refer to diagnostic and interventional procedure performed on December 20, 2024. Approach Right common femoral artery Complications None Level of sedation Moderate with a sedation time of 3 hours and 26 minutes Procedure description After obtaining informed consent the patient was brought to the cardiac Hog Stomach Preparer. The patient was prepped and draped in the usual sterile fashion. Subsequently I placed an 018 wire in the tPA infusion catheter and then I was able to remove the tPA infusion catheter outside over the 018 wire. Anticoagulation was initiated using heparin with continuous ACT monitoring. Subsequently I advanced an IVUS catheter to the mid left SFA over the 014 wire which was placed instead of the 018 wire. The IVUS catheter showed that I was in subintimal space just at the proximal edge of the left SFA stent. I did advance the reentry device over the 014 wire and after multiple attempts I was able to enter the true lumen again and advance a wire to the distal left po pliteal distal to the distal edge of the stent. I was able to cross the GEEK SQUAD MANAGER of the left popliteal and left tibioperoneal trunk as well as the peroneal artery using 014 wire. I advanced a catheter over a 014 wire and I injected contrast in the peroneal artery to prove that I was in the true lumen and I was in the true lumen. Please note that anticoagulation was continued using heparin with continuous ACT monitoring. After that I did balloon angioplasty of the left SFA using initially 3 mm and subsequently 6 mm balloon and for the left popliteal and left peroneal I did balloon angioplasty using 3 mm balloon. An angiogram was performed and showed no flow. At that point I decided to go ahead and do treatment using the [place] device. I placed an 018 wire instead of the 014 wire and over the wire I was able to do [place] treatment for the in-stent segment of the left SFA and also the [place] tribes left SFA. Balloon angioplasty again was performed for the left popliteal and left TPT and left peroneal using 4 mm noncompliant balloon and that was a talat balloon and 4 left SFA using 6 mm Talat balloon. An angiogram showed good flow. After that I did DCB of the segments below the knee using 4 mm DCB balloon and for the above the knee using 6 mm DCB balloon. Final angiogram after the patient was given nitroglycerin and nicardipine showed excellent angiographic results and the procedure was completed with no complication. Subsequently did exchange my 70 cm sheath over a 035 wire into a 6 [place]ib[place] sheath. By the end selective right common femoral artery angiogram was performed. Please note that we had to call anesthesia throughout the case because the patient was experiencing severe pain every time we inflated the balloon in the left SFA. Also please note that an angiogram du ring the case showed occluded distal left peroneal artery which I had to do also balloon angioplasty. Postprocedure management 1. Consider triple therapy 2. Aggressive cholesterol control 3. Risk factors modification 4. Follow-up with the patient
[2024-12-21] MEDS: APIXABAN 5 MG TAB PO SCH (20:42)
[2024-12-22 04:36] LABS: Basophils # (A) 0.03 10*3/uL (0.00-0.10); Basophils % (A) 0.2 %; Eosinophils # (A) 0.16 10*3/uL (0.04-0.35); Eosinophils % (A) 1.2 %; HCT 43.0 % (39.6-50.0); HGB 14.9 g/dL (13.0-17.0); Lymphocytes # (A) 1.33 10*3/uL (0.90-5.00); Lymphocytes % (A) 10.2 %; MCH 32.9 pg (27.0-32.0); MCHC 34.7 g/dL (32.0-37.0); MCV 94.9 fL (80.0-97.0); Monocytes # (A) 1.67 10*3/uL (0.20-1.00); Monocytes % (A) 12.9 %; Neutrophils # (A) 9.71 10*3/uL (1.80-7.70); Neutrophils % (A) 74.9 %; Platelet Count 206 10*3/uL (140-440); RBC 4.53 10*6/uL (4.40-5.60); RDW 12.8 % (11.5-14.5); WBC 12.98 10*3/uL (4.50-10.00)
[2024-12-22 04:58] LABS: African American GFR (CKD) >90 (>60 ml/min/1.73 sqM); Anion Gap 9 mmol/L; Blood Urea Nitrogen 5 mg/dL (9-20); Calcium 8.9 mg/dL (8.4-10.2); Carbon Dioxide 23 mmol/L (22-30); Chloride 101 mmol/L (98-107); Glucose 96 mg/dL (74-99); Non-African American GFR(CKD) >90 (>60 ml/min/1.73 sqM); Potassium 3.6 mmol/L (3.5-5.1); Sodium 133 mmol/L (137-145)
[2024-12-22] MEDS ORDERED: Potassium Replacement Protocol 1 EACH MISC MISCELLANE PRN (05:12)
[2024-12-22] MEDS: POTASSIUM CHLORIDE ER 20 MEQ TAB.ER PO SCH (05:23)
--- NOTE | 2024-12-22 08:16 | P.DS ---
Providers Attending physician: Ephraim Peter Primary care physician: [facility] Course: The patient is a pleasant 59-year-old gentleman who was admitted to the hospital yesterday for angiogram of the lower extremities along with aortogram for acute limb ischemia. The angiogram revealed acute total occlusion of the left SFA and left popliteal and left peroneal arteries. tPA infusion catheter was placed for 24 hours and the patient was brought again yesterday for second look angiogram which did not show significant improvement. The patient underwent successful REGISTER CLERK of the left SFA and left popliteal and left peroneal artery with a good angiographic results. He was seen and evaluated this morning. He is feeling better. The left lower extremity discomfort has improved significantly with the right groin is soft and nontender with no bruises. The patient is going to be discharged home on triple therapy and I will follow- up with the patient next week in the office Plan - Discharge Summary Discharge Rx Participant: No New Discharge Prescriptions: New Apixaban [Eliquis] 5 mg PO BID #180 tab Continue Atorvastatin [Lipitor] 80 mg PO HS Aspirin 81 mg PO QAM lisinopriL [Zestril] 5 mg PO QAM HYDROcodone/APAP 5-325MG [[place] 5-325] 1 each PO Q4HR PRN #18 tab PRN Reason: Moderate Pain (Scale 4 To 6) Clopidogrel [Plavix] 75 mg PO QAM Discontinued Apixaban [Eliquis] 2.5 mg PO BID #60 tab Discharge Medication List Atorvastatin [Lipitor] 80 mg PO HS 08/11/20 [History] Aspirin 81 mg PO QAM 07/31/21 [History] lisinopriL [Zestril] 5 mg PO QAM 10/04/23 [History] Clopidogrel [Plavix] 75 mg PO QAM 03/15/24 [History] HYDROcodone/APAP 5-325MG [[place] 5-325] 1 each PO Q4HR PRN #18 tab 03/20/24 [Rx] Apixaban [Eliquis] 5 mg PO BID #180 tab 12/22/24 [Rx] Follow up Appointment(s)/Referral(s): Ephraim Peter MD [STAFF PHYSICIAN] - 1 Week (OFFICE WILL CALL PATIENT WITH A FOLLOW UP APPOINTMENT DATE/TIME. ) Patient Instructions/Handouts: Moderate Sedation (ED), Angiogram (DC) Activity/Diet/Wound Care/Special Instructions: no driving for two days. Avoid heavy lifting greater than 10 lbs , pushing, pulling, straining, flights of stairs for three days. ok to shower tomorrow but no baths, pools, soaking in tubs for three days to avoid risk of infection. signs of infection ie: fever, rash, drainage from puncture site, swelling contact doctor or return to ER immediately. Heavy bleeding from puncture site, apply firm direct pressure and return to ER. Do not attempt to drive self. low sodium/low fat diet Medications as directed by analysis manager.
[2024-12-22 08:29] VITALS: TEMP 98.3
[2024-12-22 16:12] VITALS: BP 141/93; PULSE 95; RESP 18
== END 2024-12-22 17:15 | disposition home or self-care (01) ==
LOC: CATHCVL 05:41 → 2SICU 09:58 → CATHCVL 12-22 17:15
PROVIDERS: ATTEND Internal Medicine Interventional Cardiology
DX: I70.213 Atherosclerosis of native arteries of extremities with intermittent claudication, bilateral legs (principal); I99.8 Other disorder of circulatory system; I10 Essential (primary) hypertension; E78.5 Hyperlipidemia, unspecified; Z87.891 Personal history of nicotine dependence; Z79.01 Long term (current) use of anticoagulants; Z79.899 Other long term (current) drug therapy
CPT/HCPCS: 37225; 37228; 75710; 37211; 37214; 37252 ×2; 86900; 86901; 80048 ×2; 82565 ×2; 84520 ×2; 85025 ×3; 85384 ×2; 85610 ×2; 86850; C1894 ×2; C1751; C1769 ×10; C1725 ×4; C1887 ×2; C1753 ×2; C2628; C2623 ×3; J2250 ×2; J1644 ×5; J2003; J3010 ×2; J1171 ×5; J2997 ×2; J2704; Q9967 ×2; J2305